=== PATIENT | male | born 1950 | race Caucasian/White ===

== ENCOUNTER 2018-06-23 20:07 | Emergency (ER) | payer OTHER, SELFPAY ==
[2018-06-23 20:31] LABS: Absolute Lymphocytes (CBC) 1.4 K/uL (0.7-4.9); Absolute Monocytes 0.6 K/uL (0.1-1.3); Absolute Neutrophil 6.4 K/uL (1.8-8.0); Basophils % 0.3 % (0-1.3); Eosinophils % 0.7 % (0-4.4); Lymphocytes % 16.3 % (15.3-44.8); MPV 11.2 fL (7.6-11.3); Monocytes % 7.6 % (3.3-12.3)
--- NOTE | 2018-06-23 20:31 | RAD REPORT ---
EXAM DESCRIPTION: Trung Single View06/23/2018 8:23 pm CLINICAL HISTORY: Chest pain COMPARISON: none FINDINGS: The lungs appear clear of acute infiltrate. The heart is normal size IMPRESSION: No acute abnormalities displayed
[2018-06-23] MEDS ORDERED: ONDANSETRON 4 MG/2 ML VIAL ONE (20:32)
[2018-06-23] MEDS ORDERED: FENTANYL CITR 100 MCG/2 ML ONE ×2 (20:32→21:30)
[2018-06-23] MEDS ORDERED: NA CHLORIDE 0.9% 1,000 ML ONE (20:36)
[2018-06-23 20:50] LABS: Albumin 4.4 g/dL (3.4-5.0); Bilirubin Direct 0.2 mg/dL (0-0.2); Bilirubin Total 0.8 mg/dL (0.2-1.0); Potassium 3.5 mmol/L (3.5-5.1); Protein, Total 7.9 g/dL (6.4-8.2)
[2018-06-23 21:58] LABS: Urine Blood 2+ (NEG); Urine Glucose NEGATIVE (NEG); Urine Protein NEGATIVE (NEG); Urine Specific Gravity 1.015 (1.005-1.030); Urine pH 8.5 (5.0-7.0)
[2018-06-23 21:59] LABS: Urine Bacteria <20 /HPF (NONE SEEN); Urine Culture Reflex Order NOT NEEDED; Urine RBC 20-50 /HPF (NONE SEEN)
[2018-06-23] MEDS ORDERED: ACETAMINOPHEN 500 MG TAB ONE (22:30)
[2018-06-23] MEDS ORDERED: KETOROLAC 30 MG/ML INJ ONE (22:30)
--- NOTE | 2018-06-23 23:18 | ER ---
Nurse's Notes [facility] Name: Maycol Corona Age: 67 yrs Sex: Male : 1950 Arrival Date: 06/23/2018 Time: 20:11 Bed 4 Private MD: Diagnosis: Acute blunt chest wall trauma;acute blunt abdominal wall trauma;Left 5th anterior rib fracture Presentation: 06/23 20:10 Presenting complaint: Patient states: that he was working on his porch and the ply wood fc gave way. When this happened pt fell with it and the plywood hit him the upper abd. Noted scrapes and bruising present. Pt also having increased pain to upper abd, chest, neck and back. Care prior to arrival: Medication(s) given: Freehold at 1940. Mechanism of Injury: Fall from Porch. Trauma event details: Injury occurred in the [facility], Injury occurred: at home. Injury occurred: June 23, 2018 Injury occurred at: 19:00. 20:10 Method Of Arrival: Wheelchair fc 20:10 Acuity: JOSE 2 fc 20:10 Transition of care: patient was not received from another setting of care. Onset of fc symptoms was June 23, 2018 at 19:00. Risk Assessment: Do you want to hurt yourself or someone else? Patient reports no desire to harm self or others. Initial Sepsis Screen: Does the patient meet any 2 criteria? RR > 20 per min. Yes Does the patient have a suspected source of infection? No. Patient's initial sepsis screen is negative. Triage Assessment: 23:36 General: Appears. tl2 Trauma Activation: Alert Physician: ED Physician; Name: Shane; Notified At: 20:11; Arrived At: 20:12 Physician: General Surgeon; Name: ; Notified At: 20:11; Arrived At: Physician: Radiology; Name: Giorgi Ashraf Dillion; Notified At: 20:11; Arrived At: 20:11 Physician: Respiratory; Name: ; Notified At: 20:11; Arrived At: Physician: Lab; Name: ; Notified At: 20:11; Arrived At: Historical: - Allergies: 20:24 No Known Allergies; fc - Home Meds: 20:24 Freehold 10-325 mg Oral tab 1 tab twice a day [Active]; Zoloft 100 mg Oral tab 1 tab once fc daily [Active]; Simvastatin Oral once daily [Active]; - PMHx: 20:24 neck pain; Back pain; Chronic pain; High Cholesterol; CVA; Pneumothorax; herniated disk;fc - PSHx: 20:24 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 - Immunization history: Last tetanus immunization: unknown. - Social history:: Smoking status: Patient/guardian denies using tobacco, Patient uses alcohol, on a daily basis. Patient/guardian denies using street drugs. - Ebola Screening: : Patient negative for fever greater than or equal to 101.5 degrees Fahrenheit, and additional compatible Ebola Virus Disease symptoms Patient denies exposure to infectious person Patient denies travel to an Ebola-affected area in the 21 days before illness onset. - Family history:: not pertinent. - Hospitalizations: : No recent hospitalization is reported. Screenin:10 Abuse screen: Denies threats or abuse. Tuberculosis screening: No symptoms or risk fc factors identified. 20:22 Nutritional screening: No deficits noted. Fall Risk None identified. fc Primary Survey: 20:10 NO uncontrolled hemorrhage observed. A: The patient is alert. Airway: patent, No la1 supplemental oxygen in use on arrival. Oral cavity: clear. Breathing/Chest: Respiratory pattern: regular, tachypnea, Respiratory effort: spontaneous, unlabored. Circulation: Skin color: pink. Disability Alert. Exposure/Environment: All clothing and personal items were removed. Forensic evidence collection is not deemed to be indicated at this time. Items placed in patient belonging bag. A warming method has been applied: A warm blanket has been provided to the patient. 21:09 Reassessment Airway Airway Patent Breathing/Chest Respiratory pattern Regular la1 Respiratory effort Spontaneous Unlabored Circulation Color [place] Temperature Warm Disability Alert. Secondary Survey: 20:10 Gastrointestinal: Abdomen is Other Bruising noted to WIN upper quadrants with la1 abrasions. Bowel sounds present in all quadrants. Palpation Other soft/non-tender. Assessment: 20:00 General: Appears distressed, uncomfortable, Behavior is cooperative, appropriate for tl2 age, anxious. Pain: Complains of pain in chest and thoracic area and epigastric area and mid-sternal area. Neuro: Level of Consciousness is awake, alert, obeys commands, Oriented to person, place, time, situation. Cardiovascular: Rhythm is sinus rhythm Chest pain quality is sharp, is located in chest wall. Respiratory: Airway is patent Respiratory effort is even, Respiratory pattern is symmetrical, tachypnea Breath sounds are clear bilaterally. GI: No signs and/or symptoms were reported involving the gastrointestinal system. : No signs and/or symptoms were reported regarding the genitourinary system. Derm: Skin is pink, warm \T\ dry. Musculoskeletal: Circulation, motion, and sensation intact. Injury Description: Abrasion sustained to diaphragm is scabbed, was sustained 30-60 minutes ago. 22:22 Reassessment: Patient appears in no apparent distress at this time. Patient and/or tl2 family updated on plan of care and expected duration. Pain level reassessed. Patient is alert, oriented x 3, equal unlabored respirations, skin warm/dry/pink. pt is calm and relaxed. RT at bedside to instruct pt on IS use. Awaiting discharge orders Patient states feeling better. Vital Signs: 20:10 BP 156 / 89; Pulse 69; Resp 26; Temp 98.2(O); Pulse Ox 100% on R/A; Weight 68.04 kg fc (R); Height 5 ft. 9 in. (175.26 cm) (R); Pain 10/10; 21:38 BP 158 / 76; Pulse 69; Resp 18; Pulse Ox 100% on 2 lpm NC; tl2 22:07 BP 123 / 72; Pulse 74; Resp 20; Pulse Ox 99% on R/A; tl2 23:04 BP 141 / 81; Pulse 66; Resp 18; Pulse Ox 99% on R/A; tl2 20:10 Body Mass Index 22.15 (68.04 kg, 175.26 cm) fc Rupesh Coma Score: 20:10 Eye Response: spontaneous(4). Verbal Response: oriented(5). Motor Response: obeys fc commands(6). Total: 15. Trauma Score (Adult): 20:10 Eye Response: spontaneous(1); Verbal Response: oriented(1); Motor Response: obeys fc commands(2); Systolic BP: > 89 mm Hg(4); Respiratory Rate: 10 to 29 per min(4); Eaton Score: 15; Trauma Score: 12 ED Course: 20:10 Patient has correct armband on for positive identification. Placed in gown. Bed in low fc position. Call light in reach. Side rails up X 1. 20:10 Arm band placed on Patient placed in an exam room, on a stretcher. fc 20:10 Patient maintains SpO2 saturation greater than 95% on room air. fc 20:10 Thermoregulation: warm blanket given to patient. tl2 20:11 Patient arrived in ED. am2 20:20 Triage completed. fc 20:20 Heraclio Lynn MD is Attending Physician. wa 20:22 No provider procedures requiring assistance completed. fc 20:23 Chest Single View XRAY In Process Unspecified. EDMS 20:33 Inserted saline lock: 20 gauge in right antecubital area, using aseptic technique. tl2 Blood collected. 20:33 Inserted saline lock: 20 gauge in left antecubital area, using aseptic technique. tl2 20:44 CT Traumagram (Head C Spine CAP W Con) In Process Unspecified. EDMS 21:02 XRAY Pelvis In Process Unspecified. EDMS 21:40 Anca Garcia, ROSY is Primary Nurse. tl2 23:16 Joseph Jose MD is Referral Physician. wa 23:42 IV discontinued, intact, bleeding controlled, No redness/swelling at site. Pressure tl2 dressing applied. Administered Medications: 20:32 Drug: fentaNYL (PF) 100 mcg Route: IVP; Site: right antecubital; tl2 20:40 Follow up: Response: No adverse reaction; Pain is decreased tl2 20:32 Drug: Zofran 4 mg Route: IVP; Site: right antecubital; tl2 21:00 Follow up: Response: No adverse reaction; Nausea is decreased tl2 20:32 Drug: NS 0.9% 1000 ml Route: IV; Rate: 1 bolus; Site: right antecubital; tl2 22:30 Follow up: IV Status: Completed infusion; IV Intake: 1000ml tl2 21:36 Drug: fentaNYL (PF) 100 mcg Route: IVP; Site: left antecubital; tl2 22:00 Follow up: Response: No adverse reaction; Pain is decreased tl2 22:22 Drug: TORadol 30 mg Route: IVP; Site: left antecubital; tl2 23:00 Follow up: Response: No adverse reaction; Pain is decreased tl2 22:22 Drug: Tylenol 1000 mg Route: PO; tl2 23:35 Follow up: Response: No adverse reaction tl2 23:33 Drug: Tetanus-Diphtheria Toxoid Adult 0.5 ml {Dried Yeast Supervisor: Jenn Rykert. Exp: tl2 04/08/2020. Lot #: [id number]. } Route: IM; Site: left deltoid; 23:36 Follow up: Response: No adverse reaction tl2 Intake: 22:30 IV: 1000ml; Total: 1000ml. tl2 23:43 IV: 1000ml; Total: 2000ml. tl2 Output: 23:43 Urine: 200ml (Voided); Total: 200ml. tl2 Outcome: 23:17 Discharge ordered by . wa 23:42 Discharged to home ambulatory, with family. tl2 23:42 Condition: stable 23:42 Discharge instructions given to patient, family, Instructed on discharge instructions, follow up and referral plans. medication usage, Demonstrated understanding of instructions, follow-up care, medications, Prescriptions given X 1. 23:43 Patient's length of stay was not longer than 2 hours. tl2 23:44 Patient left the ED. tl2 Signatures: Dispatcher [employer] EDMS Day Santamaria RN RN fc Attema, Lee, RN RN la1 Knox, Taylor, RN RN tl2 Reena Alfaro am2 Heraclio Lynn MD MD wa Corrections: (The following items were deleted from the chart) 23:42 20:00 IV discontinued, intact, bleeding controlled, No redness/swelling at site. tl2 Pressure dressing applied, tl2
--- NOTE | 2018-06-23 23:18 | EDPHYS ---
Physician Documentation [facility] Name: Maycol Corona Age: 67 yrs Sex: Male : 1950 Arrival Date: 06/23/2018 Time: 20:11 Bed 4 Private MD: ED Physician Heraclio Lynn HPI: 06/23 22:55 This 67 yrs old Male presents to ER via Wheelchair with complaints of Fall wa Injury. 22:55 Details of fall: The patient fell from an upright position, while working. . Onset: The wa symptoms/episode began/occurred just prior to arrival. Associated injuries: The patient sustained injury to the chest, specifically the diaphragm, xyphoid area and mid-sternal area, injury to the abdomen. Severity of symptoms: At their worst the symptoms were severe, in the emergency department the symptoms are unchanged. The patient has not experienced similar symptoms in the past. The patient has not recently seen a physician. states working with [employer] on his porch and fell over with the plywood hit him right in the lower chest and upper abd. . 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 - Immunization history: Last tetanus immunization: unknown. - Social history:: Smoking status: Patient/guardian denies using tobacco, Patient uses alcohol, on a daily basis. Patient/guardian denies using street drugs. - Ebola Screening: : Patient negative for fever greater than or equal to 101.5 degrees Fahrenheit, and additional compatible Ebola Virus Disease symptoms Patient denies exposure to infectious person Patient denies travel to an Ebola-affected area in the 21 days before illness onset. - Family history:: not pertinent. - Hospitalizations: : No recent hospitalization is reported. ROS: 23:27 Constitutional: Negative for fever, chills, and weight loss, Eyes: Negative for injury, wa pain, redness, and discharge, ENT: Negative for injury, pain, and discharge, : Negative for injury, bleeding, discharge, and swelling, MS/Extremity: Negative for injury and deformity, Neuro: Negative for headache, weakness, numbness, tingling, and seizure. 23:27 Neck: Positive for pain with movement. 23:27 Cardiovascular: Positive for chest pain. 23:27 Respiratory: Positive for painful inspiration, Negative for hemoptysis. 23:27 Abdomen/GI: Positive for abdominal pain, of the epigastric area, right upper quadrant and left upper quadrant. 23:27 Back: Positive for pain with movement. 23:27 MS/extremity: Negative for injury or acute deformity. 23:27 Skin: Positive for abrasion(s), deep bruise across the upper abdomen, Negative for hematoma. Exam: 23:29 Head/Face: Normocephalic, atraumatic. Eyes: Pupils equal round and reactive to light, wa extra-ocular motions intact. Lids and lashes normal. Conjunctiva and sclera are non-icteric and not injected. Cornea within normal limits. Periorbital areas with no swelling, redness, or edema. ENT: Nares patent. No nasal discharge, no septal abnormalities noted. Tympanic membranes are normal and external auditory canals are clear. Oropharynx with no redness, swelling, or masses, exudates, or evidence of obstruction, uvula midline. Mucous membranes moist. MS/ Extremity: Pulses equal, no cyanosis. Neurovascular intact. Full, normal range of motion. Neuro: Awake and alert, GCS 15, oriented to person, place, time, and situation. Cranial nerves II-XII grossly intact. Motor strength 5/5 in all extremities. Sensory grossly intact. Cerebellar exam normal. Normal gait. Psych: Awake, alert, with orientation to person, place and time. Behavior, mood, and affect are within normal limits. 23:29 Constitutional: The patient appears alert, in obvious distress, due to pain 23:29 Neck: External neck: is normal, C-spine: no crepitus or step-offs. diffuse tenderness, Trachea: is midline with no obvious abnormalities. 23:29 Chest/axilla: Inspection: normal, Palpation: crepitus, is not appreciated, tenderness, that is moderate, of the diffuse lower aspect of bilateral chest. 23:29 Abdomen/GI: Inspection: bruising, across upper abdomen over xiphoid, Bowel sounds: normal, Palpation: soft, in all quadrants, moderate abdominal tenderness, in the left upper quadrant and right upper quadrant and epigastric area and mid-sternal area and xyphoid area. 23:29 Back: pain, that is moderate, of the thoracic area and lumbar area. Vital Signs: 20:10 BP 156 / 89; Pulse 69; Resp 26; Temp 98.2(O); Pulse Ox 100% on R/A; Weight 68.04 kg fc (R); Height 5 ft. 9 in. (175.26 cm) (R); Pain 10/10; 21:38 BP 158 / 76; Pulse 69; Resp 18; Pulse Ox 100% on 2 lpm NC; tl2 22:07 BP 123 / 72; Pulse 74; Resp 20; Pulse Ox 99% on R/A; tl2 23:04 BP 141 / 81; Pulse 66; Resp 18; Pulse Ox 99% on R/A; tl2 20:10 Body Mass Index 22.15 (68.04 kg, 175.26 cm) fc Rupesh Coma Score: 20:10 Eye Response: spontaneous(4). Verbal Response: oriented(5). Motor Response: obeys fc commands(6). Total: 15. Trauma Score (Adult): 20:10 Eye Response: spontaneous(1); Verbal Response: oriented(1); Motor Response: obeys fc commands(2); Systolic BP: > 89 mm Hg(4); Respiratory Rate: 10 to 29 per min(4); Hensley Score: 15; Trauma Score: 12 Procedures: 23:41 Performed FAST (as part of trauma primary survey). 4 quad FAST at bedside by . all wa windows noted and negative. no abd intrab or thoracic fluid. . MDM: 20:20 Patient medically screened. wa 23:35 Differential diagnosis: abrasion, closed head injury, contusion, fracture, multiple wa trauma, sprain, strain. Differential diagnosis: trauma. r/o acute traumatic intrathoracic/intraabd/pelvic injury. . Data reviewed: vital signs, nurses notes. Test interpretation: by ED physician or midlevel provider: labs noted for hyperglycemia of 153. Blood type O pos. UA noted for 20-50 RBCs. low plt. low GFR. . 23:38 Test interpretation: by ED physician or midlevel provider: CXR negative. CT va head/c-spine/chest/abd/pelvis: noted R anterior 5th rib fracture. no pneumothorax. Response to treatment: the patient's symptoms have markedly improved after treatment. ED course: pain controlled. vitals remained within nml limits. noted rib fx. taught incentive spirometry. d/c'd with pain meds and close f/u. advised immediate return for worsening pain and or new concerns. 23:43 Test interpretation: by ED physician or midlevel provider: pelvic x-ray negative for va acute process. CXR negative. recon T/L spine on CT: no acute fx. 06/23 20:22 Order name: Basic Metabolic Panel va 06/23 20:22 Order name: CBC with Diff; Complete Time: 21:50 va 06/23 20:22 Order name: Creatinine for Radiology; Complete Time: 21:50 va 06/23 20:22 Order name: Type And Screen; Complete Time: 21:51 va 06/23 20:22 Order name: LFT's; Complete Time: 21:51 va 06/23 20:22 Order name: Urine Microscopic Only; Complete Time: 23:26 va 06/23 20:17 Order name: Chest Single View XRAY; Complete Time: 21:50 [facility] 06/23 20:22 Order name: CT Traumagram (Head C Spine CAP W Con) va 06/23 20:22 Order name: XRAY Pelvis va 06/23 20:23 Order name: Basic Metabolic Panel; Complete Time: 21:51 [facility] 06/23 21:36 Order name: ABO/RH no charge; Complete Time: 21:50 [facility] 06/23 21:43 Order name: Urine Dipstick--Ancillary (enter results); Complete Time: 23:26 [facility] 06/23 22:09 Order name: INCENTIVE SPIROMETRY va 06/23 20:22 Order name: Labs collected and sent; Complete Time: 20:33 va 06/23 20:22 Order name: Urine Dipstick-Ancillary (obtain specimen); Complete Time: 21:39 va 06/23 20:22 Order name: Cardiac monitoring; Complete Time: 20:32 va Administered Medications: 20:32 Drug: fentaNYL (PF) 100 mcg Route: IVP; Site: right antecubital; tl2 20:40 Follow up: Response: No adverse reaction; Pain is decreased tl2 20:32 Drug: Zofran 4 mg Route: IVP; Site: right antecubital; tl2 21:00 Follow up: Response: No adverse reaction; Nausea is decreased tl2 20:32 Drug: NS 0.9% 1000 ml Route: IV; Rate: 1 bolus; Site: right antecubital; tl2 22:30 Follow up: IV Status: Completed infusion; IV Intake: 1000ml tl2 21:36 Drug: fentaNYL (PF) 100 mcg Route: IVP; Site: left antecubital; tl2 22:00 Follow up: Response: No adverse reaction; Pain is decreased tl2 22:22 Drug: TORadol 30 mg Route: IVP; Site: left antecubital; tl2 23:00 Follow up: Response: No adverse reaction; Pain is decreased tl2 22:22 Drug: Tylenol 1000 mg Route: PO; tl2 23:35 Follow up: Response: No adverse reaction tl2 23:33 Drug: Tetanus-Diphtheria Toxoid Adult 0.5 ml {Pile Driver Operator Barge Mounted: Besstech. Exp: tl2 04/08/2020. Lot #: [id number]. } Route: IM; Site: left deltoid; 23:36 Follow up: Response: No adverse reaction tl2 Disposition: 06/23/18 23:17 Discharged to Home. Impression: Acute blunt chest wall trauma, acute blunt abdominal wall trauma, Left 5th anterior rib fracture. - Condition is Stable. - Discharge Instructions: Blunt Abdominal Trauma, Rib Fracture, [id number], Blunt Chest Trauma. - Medication Reconciliation Form, Thank You Letter, Antibiotic Education, Prescription Opioid Use form. - Follow up: Joseph Jose MD; When: 2 - 3 days; Reason: Recheck today's complaints. - Problem is new. - Symptoms have improved. - Notes: take pain medication as prescribed. use incentive spirometer 2-3 times per hour to help with lung expansion Critical care time excluding procedures: 23:42 Critical care time: Bedside Care: 20 minutes, Family Intervention: 10 minutes. Total wa time: 30 minutes Signatures: Dispatcher [employer] EDDay Delacruz RN RN Anca Garcia RN RN tl2 Heraclio Lynn MD MD wa Corrections: (The following items were deleted from the chart) 23:44 23:17 06/23/2018 23:17 Discharged to Home. Impression: Acute blunt chest wall trauma; tl2 acute blunt abdominal wall trauma; Left 5th anterior rib fracture. Condition is Stable. Forms are Medication Reconciliation Form, Thank You Letter, Antibiotic Education, Prescription Opioid Use. Follow up: Joseph Jose; When: 2 - 3 days; Reason: Recheck today's complaints. Problem is new. Symptoms have improved. wa
[2018-06-23] MEDS ORDERED: TETANUS & DIPHTHERIA TOX,ADULT 0.5 ML VIAL ONE (23:40)
--- NOTE | 2018-06-24 07:47 | RAD REPORT ---
EXAM DESCRIPTION: RAD - Pelvis - 06/23/2018 9:02 pm CLINICAL HISTORY: Pelvic pain status post injury FINDINGS: No fracture or dislocation is seen.
== END 2018-06-23 23:44 | disposition home or self-care (01) ==
LOC: ER 20:07
DX: S22.32XA Fracture of one rib, left side, initial encounter for closed fracture (principal); S29.9XXA Unspecified injury of thorax, initial encounter; S39.91XA Unspecified injury of abdomen, initial encounter; W01.198A Fall on same level from slipping, tripping and stumbling with subsequent striking against other object, initial encounter; Y93.89 Activity, other specified; Y92.098 Other place in other non-institutional residence as the place of occurrence of the external cause; Z86.73 Personal history of transient ischemic attack (TIA), and cerebral infarction without residual deficits; E78.00 Pure hypercholesterolemia, unspecified
CPT/HCPCS: 85025; 80048; 36415; 86900; 86850; 86901; 80076; 70450; 72125; 71260; 74177; 71045; 72170; 90714; Q9967; J3010 ×2; J7030; J2405; 81003; 81015

== ENCOUNTER 2019-01-09 14:35 | Emergency (ER) | payer OTHER ==
[2019-01-09 15:30] LABS: Absolute Lymphocytes (CBC) 1.3 K/uL (0.7-4.9); Lymphocytes % 25.9 % (15.3-44.8); MPV 11.2 fL (7.6-11.3); RBC Red Blood Cell Count 4.66 M/uL (4.33-5.43)
[2019-01-09] MEDS ORDERED: ASPIRIN 81 MG CHEWABLE TABLET ONE (15:44)
[2019-01-09] MEDS ORDERED: NITROGLYCERIN 0.4 MG/TAB SL ONE (15:45)
[2019-01-09 15:53] LABS: Protime INR 0.94
[2019-01-09 16:04] LABS: ALT/SGPT 23 U/L (12-78); AST/SGOT 14 U/L (15-37); Albumin 4.1 g/dL (3.4-5.0); Alkaline Phosphatase 74 U/L (45-117); BUN Blood Urea Nitrogen 19 mg/dL (7-18); Bicarbonate 25 mmol/L (21-32); Bilirubin Direct 0.1 mg/dL (0-0.2); Bilirubin Total 0.4 mg/dL (0.2-1.0); Glucose Level 99 mg/dL (74-106); Magnesium 2.2 mg/dL (1.8-2.4); NT PRO-BNP 243 pg/mL (<125); Protein, Total 7.4 g/dL (6.4-8.2); Sodium Level 141 mmol/L (136-145); Troponin (Emerg Dept Use Only) < 0.02 ng/mL (0.0-0.045)
--- NOTE | 2019-01-09 17:16 | RAD REPORT ---
EXAM DESCRIPTION: RAD - Chest Single View - 01/09/2019 4:20 pm CLINICAL HISTORY: CHEST PAIN Chest pain. COMPARISON: No comparisonsNo comparisonsChest Single View dated 06/23/2018 FINDINGS: Portable technique limits examination quality. The lungs are grossly clear. The heart is normal in size. No displaced fractures. IMPRESSION: No acute intrathoracic process suspected.
--- NOTE | 2019-01-09 18:33 | EDPHYS ---
Physician Documentation [facility] Name: Maycol Corona Age: 68 yrs Sex: Male : 1950 Arrival Date: 01/09/2019 Time: 14:36 Bed 17 Private MD: ED Physician Aldo Capone HPI: 01/09 15:22 This 68 yrs old Male presents to ER via Ambulatory with complaints of Chest snw Pain. 15:22 Onset: The symptoms/episode began/occurred 2 year(s) ago, and became persistent. snw Associated signs and symptoms: Pertinent positives: palpitations, dizziness. The patient has experienced similar episodes in the past, chronically. The patient has not recently seen a physician. pt has never seen a bioinformatics technician. 15:29 The patient or guardian reports chest pain that is located primarily in the substernal snw area. Onset: 2 year(s) ago. The pain does not radiate. Associated signs and symptoms: Pertinent positives: dizziness, palpitations. The chest pain is described as squeezing. Duration: The patient or guardian reports multiple episodes, that wax and wane. Modifying factors: The symptoms are alleviated by nothing. Severity of pain: At its worst the pain was moderate. Historical: - Allergies: 14:39 No Known Allergies; aj1 - Home Meds: 14:39 [place] 10-325 mg Oral tab 1 tab twice a day [Active]; fiorcet [Active]; aj1 15:29 simvastatin 20 mg Oral tab [Active]; sertraline 100 mg oral tab 1 tab once daily em [Active]; famotidine 20 mg Oral tab [Active]; tizanidine 4 mg oral tab [Active]; meloxicam 7.5 mg oral tab [Active]; Butalbital Compound 50-300-40 mg tab Oral tab [Active]; acetaminophen-codeine 300-30 mg Oral tab [Active]; - PMHx: 14:39 Back pain; Chronic pain; CVA; herniated disk; High Cholesterol; neck pain; Pneumothorax;aj1 - Immunization history:: Flu vaccine is not up to date. - Social history:: Smoking status: Patient/guardian denies using tobacco. - Ebola Screening: : Patient denies travel to an Ebola-affected area in the 21 days before illness onset. ROS: 15:21 Constitutional: Negative for fever, chills, and weight loss, Eyes: Negative for injury, snw pain, redness, and discharge, ENT: Negative for injury, pain, and discharge, Neck: Negative for injury, pain, and swelling, Respiratory: Negative for shortness of breath, cough, wheezing, and pleuritic chest pain, Abdomen/GI: Negative for abdominal pain, nausea, vomiting, diarrhea, and constipation, Back: Negative for injury and pain, : Negative for injury, bleeding, discharge, and swelling, MS/Extremity: Negative for injury and deformity, Skin: Negative for injury, rash, and discoloration, Neuro: Negative for headache, weakness, numbness, tingling, and seizure, Psych: Negative for depression, anxiety, suicide ideation, homicidal ideation, and hallucinations. 15:21 Cardiovascular: Positive for chest pain, palpitations. Exam: 15:21 Constitutional: This is a well developed, well nourished patient who is awake, alert, snw and in no acute distress. Head/Face: Normocephalic, atraumatic. Eyes: Pupils equal round and reactive to light, extra-ocular motions intact. Lids and lashes normal. Conjunctiva and sclera are non-icteric and not injected. Cornea within normal limits. Periorbital areas with no swelling, redness, or edema. ENT: Nares patent. No nasal discharge, no septal abnormalities noted. Tympanic membranes are normal and external auditory canals are clear. Oropharynx with no redness, swelling, or masses, exudates, or evidence of obstruction, uvula midline. Mucous membranes moist. Neck: Trachea midline, no thyromegaly or masses palpated, and no cervical lymphadenopathy. Supple, full range of motion without nuchal rigidity, or vertebral point tenderness. No Meningismus. Chest/axilla: Normal chest wall appearance and motion. Nontender with no deformity. No lesions are appreciated. Cardiovascular: Regular rate and rhythm with a normal S1 and S2. No gallops, murmurs, or rubs. Normal PMI, no JVD. No pulse deficits. Respiratory: Lungs have equal breath sounds bilaterally, clear to auscultation and percussion. No rales, rhonchi or wheezes noted. No increased work of breathing, no retractions or nasal flaring. Abdomen/GI: Soft, non-tender, with normal bowel sounds. No distension or tympany. No guarding or rebound. No evidence of tenderness throughout. Back: No spinal tenderness. No costovertebral tenderness. Full range of motion. Skin: Warm, dry with normal turgor. Normal color with no rashes, no lesions, and no evidence of cellulitis. MS/ Extremity: Pulses equal, no cyanosis. Neurovascular intact. Full, normal range of motion. Neuro: Awake and alert, GCS 15, oriented to person, place, time, and situation. Cranial nerves II-XII grossly intact. Motor strength 5/5 in all extremities. Sensory grossly intact. Cerebellar exam normal. Normal gait. Psych: Awake, alert, with orientation to person, place and time. Behavior, mood, and affect are within normal limits. Vital Signs: 14:39 BP 179 / 87; Pulse 74; Resp 18; Temp 97.6; Pulse Ox 100% on R/A; Weight 68.04 kg (R); aj1 Height 5 ft. 9 in. (175.26 cm) (R); Pain 6/10; 15:33 BP 166 / 91; Pulse 60; Resp 16; Pulse Ox 100% on R/A; Pain 0/10; em 16:00 BP 138 / 82; Pulse 68; Resp 18; Pulse Ox 99% on R/A; Pain 0/10; em 17:00 BP 157 / 80; Pulse 66; Resp 18; Pulse Ox 99% on R/A; em 18:02 BP 151 / 82; Pulse 57; Resp 18; Pulse Ox 99% on R/A; Pain 0/10; em 14:39 Body Mass Index 22.15 (68.04 kg, 175.26 cm) aj1 MDM: 14:54 Patient medically screened. snw 18:38 ECG:. The patient was given aspirin in the Emergency Department. Data reviewed: vital snw signs, nurses notes, lab test result(s), EKG, radiologic studies. Data interpreted: Pulse oximetry: on room air is 99 %. Interpretation: normal. Counseling: I had a detailed discussion with the patient and/or guardian regarding: the historical points, exam findings, and any diagnostic results supporting the discharge/admit diagnosis, the presence of at least one elevated blood pressure reading (>120/80) during this emergency department visit, lab results, radiology results, the need for outpatient follow up, to return to the emergency department if symptoms worsen or persist or if there are any questions or concerns that arise at home. Special discussion: Based on the patient's history, exam, and Dx evaluation, there is no indication for emergent intervention or inpatient Tx. It is understood by the patient/guardian that if the Sx's persist or worsen they need to return immediately for re-evaluation. Based on the history and exam findings, there is no indication for further emergent testing or inpatient evaluation. I discussed with the patient/guardian the need to see the bioinformatics technician for further evaluation of the symptoms. 18:49 Counseling: I had a detailed discussion with the patient and/or guardian regarding: Pt snw has had daily symptoms x 2 years. Has never seen cardiology. Encouraged to see cardiology for echo, cardiac cath, management. Pt will make appt with cardio. Encouraged to return to ED immediately for worsening signs, symptoms, concerns.. 01/09 15:13 Order name: Basic Metabolic Panel; Complete Time: 16:14 em 01/09 15:13 Order name: CBC with Diff; Complete Time: 16:14 em 01/09 15:13 Order name: LFT's; Complete Time: 16:14 em 01/09 15:13 Order name: Magnesium; Complete Time: 16:14 em 01/09 15:13 Order name: NT PRO-BNP; Complete Time: 16:14 em 01/09 15:13 Order name: PT-INR; Complete Time: 16:14 em 01/09 15:13 Order name: Troponin (emerg Dept Use Only); Complete Time: 16:14 em 01/09 15:13 Order name: EKG; Complete Time: 15:14 em 01/09 15:13 Order name: Cardiac monitoring; Complete Time: 15:14 em 01/09 16:09 Order name: Chest Single View XRAY; Complete Time: 17:18 em 01/09 16:16 Order name: Troponin (emerg Dept Use Only): 1800; Complete Time: 18:30 snw 01/09 15:13 Order name: EKG - Nurse/Tech; Complete Time: 15:14 em 01/09 15:13 Order name: IV Saline Lock; Complete Time: 15:29 em 01/09 15:13 Order name: Labs collected and sent; Complete Time: 15:14 em 01/09 15:13 Order name: O2 Per Protocol; Complete Time: 15:14 em 01/09 15:13 Order name: O2 Sat Monitoring; Complete Time: 15:14 em 01/09 16:16 Order name: Repeat Cardiac Enzymes at; Complete Time: 18:00 snw Administered Medications: 15:50 Drug: Aspirin Chewable Tablet 324 mg Route: PO; em 16:53 Follow up: Response: No adverse reaction em 15:50 Drug: Nitroglycerin 0.4 mg Route: Sublingual; em 16:53 Follow up: Response: No adverse reaction; Marked relief of symptoms em Disposition: 19:15 Co-signature as Attending Physician, Aldo Capone MD Did not see or evaluate the ps1 patient. Signing the chart for administrative purposes. Not an endorsement of care provided. . Disposition: 01/09/19 18:32 Discharged to Home. Impression: Angina pectoris, unspecified. - Condition is Stable. - Discharge Instructions: Angina Pectoris. - Prescriptions for Isosorbide Mononitrate 30 mg Oral Tablet Sustained Release 24 hr - take 1 tablet by ORAL route once daily in the morning; 30 tablet. - Work release form, Medication Reconciliation Form, Thank You Letter, Antibiotic Education, Prescription Opioid Use form. - Follow up: Emergency Department; When: As needed; Reason: Trouble breathing, Worsening of condition. Follow up: Danilo Parker MD; When: 2 - 3 days; Reason: Recheck today's complaints, Continuance of care. Signatures: Dispatcher [employer] [facility] Abby Beverly RN RN aj1 Nalini Jaime, BALING MACHINE OPERATOR-C BALING MACHINE OPERATOR-Csnw Bran Morales, INVESTIGATIVE AGENT INVESTIGATIVE AGENT em Aldo Capone MD MD ps1 Corrections: (The following items were deleted from the chart) 16:01 15:14 Chest Single View+RAD.RAD.BRZ ordered. [facility] 19:01 18:32 01/09/2019 18:32 Discharged to Home. Impression: Angina pectoris, unspecified. em Condition is Stable. Forms are Medication Reconciliation Form, Thank You Letter, Antibiotic Education, Prescription Opioid Use. Follow up: Emergency Department; When: As needed; Reason: Trouble breathing, Worsening of condition. Follow up: Danilo Parker; When: 2 - 3 days; Reason: Recheck today's complaints, Continuance of care. snw
--- NOTE | 2019-01-09 18:33 | ER ---
Nurse's Notes [facility] Name: Maycol Corona Age: 68 yrs Sex: Male : 1950 Arrival Date: 01/09/2019 Time: 14:36 Bed 17 Private MD: Diagnosis: Angina pectoris, unspecified Presentation: 01/09 14:37 Presenting complaint: Patient states: "Im having cramping from my neck to my belly aj1 button, I'm short winded, I've been having headache" Patient reports that he has been having these symptoms for the past 2 years. Transition of care: patient was not received from another setting of care. Onset of symptoms was 2016. Risk Assessment: Do you want to hurt yourself or someone else? Patient reports no desire to harm self or others. Initial Sepsis Screen: Does the patient meet any 2 criteria? No. Patient's initial sepsis screen is negative. Does the patient have a suspected source of infection? No. Patient's initial sepsis screen is negative. Care prior to arrival: None. 14:37 Method Of Arrival: Ambulatory aj1 14:37 Acuity: JOSE 3 aj1 Triage Assessment: 14:39 General: Appears in no apparent distress. comfortable, Behavior is calm, cooperative, aj1 appropriate for age. Pain: Pain currently is 6 out of 10 on a pain scale. Neuro: Level of Consciousness is awake, alert, obeys commands, Oriented to person, place, time, situation. Cardiovascular: Patient's skin is warm and dry. Respiratory: Airway is patent Respiratory effort is even, unlabored, Respiratory pattern is regular, symmetrical. Historical: - Allergies: 14:39 No Known Allergies; aj1 - Home Meds: 14:39 [place] 10-325 mg Oral tab 1 tab twice a day [Active]; fiorcet [Active]; aj1 15:29 simvastatin 20 mg Oral tab [Active]; sertraline 100 mg oral tab 1 tab once daily em [Active]; famotidine 20 mg Oral tab [Active]; tizanidine 4 mg oral tab [Active]; meloxicam 7.5 mg oral tab [Active]; Butalbital Compound 50-300-40 mg tab Oral tab [Active]; acetaminophen-codeine 300-30 mg Oral tab [Active]; - PMHx: 14:39 Back pain; Chronic pain; CVA; herniated disk; High Cholesterol; neck pain; Pneumothorax;aj1 - Immunization history:: Flu vaccine is not up to date. - Social history:: Smoking status: Patient/guardian denies using tobacco. - Ebola Screening: : Patient denies travel to an Ebola-affected area in the 21 days before illness onset. Screenin:54 Abuse screen: Denies threats or abuse. Nutritional screening: No deficits noted. em Tuberculosis screening: No symptoms or risk factors identified. Fall Risk None identified. Assessment: 15:00 General: Appears in no apparent distress. comfortable, Behavior is calm, cooperative, em Reports feeling ill for 2-3 days. Pain: Complains of pain in mid-sternal area Pain does not radiate. Quality of pain is described as crampy, Pain began 2-3 days ago. Is intermittent. Neuro: Level of Consciousness is awake, alert, obeys commands, Oriented to person, place, time, situation, Appropriate for age. Cardiovascular: Capillary refill < 3 seconds Patient's skin is warm and dry. Respiratory: Reports cough that is non-productive, Airway is patent Respiratory effort is even, unlabored, Respiratory pattern is regular, symmetrical, Breath sounds are clear bilaterally. GI: Abdomen is flat, Patient currently denies nausea, vomiting. Derm: Skin is intact, is healthy with good turgor, Skin is pink, warm \\T\\ dry. Musculoskeletal: Capillary refill < 3 seconds, Range of motion: intact in all extremities. 15:15 Reassessment: I agree with previous assessment. 16:00 Reassessment: Patient appears in no apparent distress at this time. Patient and/or em family updated on plan of care and expected duration. Pain level reassessed. Patient is alert, oriented x 3, equal unlabored respirations, skin warm/dry/pink. 17:01 Reassessment: Patient appears in no apparent distress at this time. Patient and/or em family updated on plan of care and expected duration. Pain level reassessed. Patient is alert, oriented x 3, equal unlabored respirations, skin warm/dry/pink. Patient states feeling better. Patient states symptoms have improved. 18:01 Reassessment: Patient appears in no apparent distress at this time. Patient and/or em family updated on plan of care and expected duration. Pain level reassessed. Patient is alert, oriented x 3, equal unlabored respirations, skin warm/dry/pink. Vital Signs: 14:39 BP 179 / 87; Pulse 74; Resp 18; Temp 97.6; Pulse Ox 100% on R/A; Weight 68.04 kg (R); aj1 Height 5 ft. 9 in. (175.26 cm) (R); Pain 6/10; 15:33 BP 166 / 91; Pulse 60; Resp 16; Pulse Ox 100% on R/A; Pain 0/10; em 16:00 BP 138 / 82; Pulse 68; Resp 18; Pulse Ox 99% on R/A; Pain 0/10; em 17:00 BP 157 / 80; Pulse 66; Resp 18; Pulse Ox 99% on R/A; em 18:02 BP 151 / 82; Pulse 57; Resp 18; Pulse Ox 99% on R/A; Pain 0/10; em 14:39 Body Mass Index 22.15 (68.04 kg, 175.26 cm) aj1 ED Course: 14:36 Patient arrived in ED. as 14:38 Triage completed. aj1 14:39 Arm band placed on Patient placed in an exam room. aj1 14:46 Bran Morales LVN is Primary Nurse. em 14:49 Nalini Jaime FNP-C is PHCP. snw 14:49 Aldo Capone MD is Attending Physician. snw 15:00 Patient has correct armband on for positive identification. Placed in gown. Bed in low em position. Call light in reach. Side rails up X2. Adult w/ patient. school bus inspector on. Pulse ox on. NIBP on. 15:00 Patient maintains SpO2 saturation greater than 95% on room air. em 15:30 Initial lab(s) drawn, by me, sent to lab. Inserted saline lock: 20 gauge in right em antecubital area, using aseptic technique. Blood collected. 16:21 Chest Single View XRAY In Process Unspecified. EDMS 18:32 Danilo Parker MD is Referral Physician. snw 18:59 No provider procedures requiring assistance completed. IV discontinued, intact, em bleeding controlled, No redness/swelling at site. Pressure dressing applied. Administered Medications: 15:50 Drug: Aspirin Chewable Tablet 324 mg Route: PO; em 16:53 Follow up: Response: No adverse reaction em 15:50 Drug: Nitroglycerin 0.4 mg Route: Sublingual; em 16:53 Follow up: Response: No adverse reaction; Marked relief of symptoms em Outcome: 18:32 Discharge ordered by MD. kumar 19:00 Discharged to home ambulatory, with family. em 19:00 Condition: good 19:00 Discharge instructions given to patient, family, Instructed on discharge instructions, follow up and referral plans. medication usage, Demonstrated understanding of instructions, follow-up care, medications, Prescriptions given X 1. 19:01 Patient left the ED. em Signatures: Dispatcher [employer] EDAbby Sheehan RN RN aj1 Nalini Jaime, ICE PLANT OPERATOR-C ICE PLANT OPERATOR-Csnw Bran Morales, JUSTOWRITER OPERATOR JUSTOWRITER OPERATOR em Halle Narayan Heather, RN RN hb
[2019-01-09 20:05] VITALS: TEMP 97.6
[2019-01-09 20:10] VITALS: O2SAT 99
[2019-01-09 20:12] VITALS: BP 151/82
--- NOTE | 2019-01-09 23:05 | EKG ---
Test Date: 2019-01-09 Test Time: 15:03:48 Electrical Installation Supervisor: KARLIE MEASUREMENT RESULTS: Intervals: Rate: 69 MO: 154 QRSD: 92 QT: 414 QTc: 443 [place]: P: 70 MO: 154 QRS: 33 T: -5 INTERPRETIVE STATEMENTS: Normal sinus rhythm Minimal voltage criteria for LVH, may be normal variant Nonspecific ST abnormality Abnormal ECG No previous ECG available for comparison Electronically Signed On 01-09-19 23:04:43 REHABILITATION COORDINATOR by Lisandro Matamoros
--- NOTE | 2019-01-10 10:05 | EKG ---
Test Date: 2019-01-09 Test Time: 17:58:48 Passenger Service Agent: KYARA MEASUREMENT RESULTS: Intervals: Rate: 55 MN: 162 QRSD: 98 QT: 458 QTc: 438 [place]: P: 58 MN: 162 QRS: 27 T: -13 INTERPRETIVE STATEMENTS: Sinus bradycardia Left ventricular hypertrophy with repolarization abnormality Abnormal ECG Compared to ECG 01/09/2019 15:03:48 Early repolarization now present Sinus rhythm no longer present ST (T wave) deviation no longer present Electronically Signed On 01-10-19 10:03:47 [employer]EMAKER PIPE by Lisandro Matamoros
== END 2019-01-09 19:01 | disposition home or self-care (01) ==
LOC: ER 14:35
DX: I20.9 Angina pectoris, unspecified (principal); E78.00 Pure hypercholesterolemia, unspecified; Z86.73 Personal history of transient ischemic attack (TIA), and cerebral infarction without residual deficits
CPT/HCPCS: 36415; 71045; 80048; 80076; 83735; 83880; 84484; 85025; 85610; 93005; 99285

== ENCOUNTER 2019-11-10 17:36 | Emergency (ER) | payer OTHER ==
[2019-11-10] MEDS ORDERED: HYDRALAZINE HCL 20 MG/ML VIAL ONE (18:39)
[2019-11-10] MEDS ORDERED: ONDANSETRON 4 MG/2 ML VIAL ONE (18:39)
[2019-11-10 18:40] LABS: Absolute Lymphocytes (CBC) 1.1 K/uL (0.7-4.9); Basophils % 0.7 % (0-1.3); Hematocrit 37.4 % (39.6-49.0); Lymphocytes % 21.1 % (15.3-44.8); MPV 11.3 fL (7.6-11.3); RBC Red Blood Cell Count 4.65 M/uL (4.33-5.43)
[2019-11-10 18:46] LABS: Potassium 3.6 mmol/L (3.5-5.1)
--- NOTE | 2019-11-10 19:50 | EDPHYS ---
Physician Documentation [facility] Name: Maycol Corona Age: 69 yrs Sex: Male : 1950 Arrival Date: 11/10/2019 Time: 17:37 Bed 7 Private MD: ED Physician Floyd Lua HPI: 11/09 18:56 This 69 yrs old Male presents to ER via Ambulatory with complaints of High jr8 Blood Pressure, Headache. 18:56 The patient has elevated blood pressure and discovered this at home. Onset: The jr8 symptoms/episode began/occurred gradually, 2 day(s) ago. Associated signs and symptoms: Pertinent positives: nausea. Severity of symptoms: At its worst the blood pressure was moderate. The patient has not experienced similar symptoms in the past. The patient has not recently seen a physician. Patient stated that he has had headache with nausea for two days. Checked BP today and was 200 systolic. Came to ED at that time. History of HTN and is on medications for it . Historical: - Allergies: 17:57 No Known Allergies; ll1 - PMHx: 17:57 Chronic pain; High Cholesterol; herniated disk; CVA; Back pain; neck pain; Pneumothorax;ll1 - PSHx: 17:57 triple bypass; ll1 - Immunization history:: Flu vaccine is not up to date. - Social history:: Smoking status: Patient/guardian denies using tobacco, the patient reports quitting approximately 25 years ago. ROS: 18:56 Eyes: Negative for injury, pain, redness, and discharge, ENT: Negative for injury, jr8 pain, and discharge, Neck: Negative for injury, pain, and swelling, Cardiovascular: Negative for chest pain, palpitations, and edema, Respiratory: Negative for shortness of breath, cough, wheezing, and pleuritic chest pain, Back: Negative for injury and pain, MS/Extremity: Negative for injury and deformity, Skin: Negative for injury, rash, and discoloration. 18:56 Abdomen/GI: Positive for nausea, Negative for abdominal pain, vomiting, diarrhea, constipation, abdominal cramps, abdominal distension. 18:56 Neuro: Positive for headache. Exam: 18:56 Eyes: Pupils equal round and reactive to light, extra-ocular motions intact. Lids and jr8 lashes normal. Conjunctiva and sclera are non-icteric and not injected. Cornea within normal limits. Periorbital areas with no swelling, redness, or edema. ENT: Nares patent. No nasal discharge, no septal abnormalities noted. Tympanic membranes are normal and external auditory canals are clear. Oropharynx with no redness, swelling, or masses, exudates, or evidence of obstruction, uvula midline. Mucous membranes moist. Neck: Trachea midline, no thyromegaly or masses palpated, and no cervical lymphadenopathy. Supple, full range of motion without nuchal rigidity, or vertebral point tenderness. No Meningismus. Cardiovascular: Regular rate and rhythm with a normal S1 and S2. No gallops, murmurs, or rubs. Normal PMI, no JVD. No pulse deficits. Respiratory: Lungs have equal breath sounds bilaterally, clear to auscultation and percussion. No rales, rhonchi or wheezes noted. No increased work of breathing, no retractions or nasal flaring. Abdomen/GI: Soft, non-tender, with normal bowel sounds. No distension or tympany. No guarding or rebound. No evidence of tenderness throughout. Back: No spinal tenderness. No costovertebral tenderness. Full range of motion. Skin: Warm, dry with normal turgor. Normal color with no rashes, no lesions, and no evidence of cellulitis. MS/ Extremity: Pulses equal, no cyanosis. Neurovascular intact. Full, normal range of motion. Neuro: Awake and alert, GCS 15, oriented to person, place, time, and situation. Cranial nerves II-XII grossly intact. Motor strength 5/5 in all extremities. Sensory grossly intact. Cerebellar exam normal. Normal gait. Vital Signs: 17:55 BP 191 / 83; Pulse 63; Resp 18; Temp 98.3; Pulse Ox 100% ; Weight 68.04 kg; Height 5 ll1 ft. 9 in. (175.26 cm); Pain 5/10; 18:59 BP 177 / 80; Pulse 71; ss 20:09 BP 160 / 80; Pulse 70; Resp 18; Temp 98.2; Pulse Ox 98% ; ea 17:55 Body Mass Index 22.15 (68.04 kg, 175.26 cm) ll1 MDM: 18:01 Patient medically screened. jr8 19:48 Data reviewed: vital signs, nurses notes, lab test result(s), radiologic studies, CT jr8 scan. Data interpreted: Pulse oximetry: on room air is 100 %. Interpretation: normal. Counseling: I had a detailed discussion with the patient and/or guardian regarding: the historical points, exam findings, and any diagnostic results supporting the discharge/admit diagnosis, lab results, radiology results, the need for outpatient follow up, a family practitioner, to return to the emergency department if symptoms worsen or persist or if there are any questions or concerns that arise at home. ED course: BP normalizing. Feeling better. No acute focal neurologic findings on exam. Labs stable. Will d/c home to f/u with PCP. Knows to come back if worse. Patient given ativan at the end for PTSD from losing here recently. 11/09 18:15 Order name: CBC with Diff; Complete Time: 19:28 jr8 11/09 18:15 Order name: Basic Metabolic Panel; Complete Time: 18:52 jr8 11/09 18:15 Order name: CT Head Brain wo Cont jr8 11/09 18:15 Order name: IV; Complete Time: 18:25 jr8 11/09 18:15 Order name: EKG - Nurse/Tech; Complete Time: 18:25 jr8 Administered Medications: 18:33 Drug: hydrALAZINE 10 mg Route: IV; Rate: calculated rate; Site: right antecubital; ss 20:10 Follow up: IV Status: Completed infusion ea 18:34 Drug: Zofran (Ondansetron) 4 mg Route: IVP; Site: right antecubital; ss 20:10 Follow up: Response: No adverse reaction ea 19:54 Drug: TORadol 30 mg Route: IVP; Site: right antecubital; ea 20:10 Follow up: Response: No adverse reaction ea 19:54 Drug: Ativan 1 mg Route: IVP; Site: right antecubital; ea 20:10 Follow up: Response: No adverse reaction ea Disposition: 11/10 09:05 Co-signature as Attending Physician, Floyd Lua MD I agree with the assessment and kdr plan of care. Disposition: 11/10/19 19:49 Discharged to Home. Impression: Hypertensive Urgency . - Condition is Stable. - Discharge Instructions: Hypertension. - Medication Reconciliation Form, Thank You Letter, Antibiotic Education, Prescription Opioid Use form. - Follow up: Private Physician; When: 1 - 2 days; Reason: Recheck today's complaints, Continuance of care, Re-evaluation by your physician. - Problem is new. - Symptoms have improved. Signatures: Dispatcher [employer] EDFloyd Goldsmith MD MD kdr Smirch, Shelby RN RN Orville Edwards PA PA jr8 Marian Mancilla RN RN ea Lewis, Lynsay RN RN ll1 Corrections: (The following items were deleted from the chart) 11/09 20:10 19:49 11/10/2019 19:49 Discharged to Home. Impression: Hypertensive Urgency . Condition ea is Stable. Forms are Medication Reconciliation Form, Thank You Letter, Antibiotic Education, Prescription Opioid Use. Follow up: Private Physician; When: 1 - 2 days; Reason: Recheck today's complaints, Continuance of care, Re-evaluation by your physician. Problem is new. Symptoms have improved. jr8
--- NOTE | 2019-11-10 19:50 | ER ---
Nurse's Notes [facility] Name: Maycol Corona Age: 69 yrs Sex: Male : 1950 Arrival Date: 11/10/2019 Time: 17:37 Bed 7 Private MD: Diagnosis: Hypertensive Urgency Presentation: 11/09 17:55 Chief complaint: Patient states: HAY for 2-3 days. + neck pain. BP at home 216/109. ll1 Coronavirus screen: Client denies travel out of the [place] in the last 14 days. At this time, the client does not indicate any symptoms associated with coronavirus-19. Ebola Screen: Patient denies travel to an Ebola-affected area in the 21 days before illness onset. Initial Sepsis Screen: Does the patient meet any 2 criteria? No. Patient's initial sepsis screen is negative. Risk Assessment: Do you want to hurt yourself or someone else? Patient reports no desire to harm self or others. Onset of symptoms was November 08, 2019. 17:55 Method Of Arrival: Ambulatory ll1 17:55 Acuity: JOSE 2 ll1 20:09 Initial Sepsis Screen: Does the patient have a suspected source of infection? No. ll2 Patient's initial sepsis screen is negative. Triage Assessment: 20:10 Pain: Also complains of. ll2 Historical: - Allergies: 17:57 No Known Allergies; ll1 - PMHx: 17:57 Chronic pain; High Cholesterol; herniated disk; CVA; Back pain; neck pain; Pneumothorax;ll1 - PSHx: 17:57 triple bypass; ll1 - Immunization history:: Flu vaccine is not up to date. - Social history:: Smoking status: Patient/guardian denies using tobacco, the patient reports quitting approximately 25 years ago. Screenin:15 Abuse screen: Denies threats or abuse. Denies injuries from another. Nutritional ss screening: No deficits noted. Tuberculosis screening: Never had TB. Fall Risk None identified. Assessment: 18:15 General: Appears uncomfortable, Behavior is calm, cooperative, Denies fever, chills. ss Pain: Complains of pain in base of the skull, posterior neck Pain currently is 5 out of 10 on a pain scale. Quality of pain is described as aching, Pain began 2-3 days ago. Pt reports that his neck pain "acts up" sometimes. Neuro: Level of Consciousness is awake, alert, obeys commands, Oriented to person, place, time, situation. Cardiovascular: Capillary refill < 3 seconds is brisk in bilateral fingers. Respiratory: Airway is patent Respiratory effort is even, unlabored, Respiratory pattern is regular, symmetrical. GI: Reports nausea, Patient currently denies diarrhea, vomiting. : No signs and/or symptoms were reported regarding the genitourinary system. EENT: Nares are clear Oral mucosa is moist. Derm: Skin is intact, is healthy with good turgor, Skin is dry, Skin is pink, warm \\T\\ dry. normal. Musculoskeletal: Circulation, motion, and sensation intact. Range of motion: intact in all extremities, Swelling absent. 18:36 Reassessment: Pt to CT now VIA stretcher. ss 20:09 Reassessment: Patient and/or family updated on plan of care and expected duration. Pain ea level reassessed. Patient is alert, oriented x 3, equal unlabored respirations, skin warm/dry/pink. Discharge instruction given to patient, verbalized the understanding of instruction. Pt left ED ambulatory accompanied by family, pt tolerating well. Vital Signs: 17:55 BP 191 / 83; Pulse 63; Resp 18; Temp 98.3; Pulse Ox 100% ; Weight 68.04 kg; Height 5 ll1 ft. 9 in. (175.26 cm); Pain 5/10; 18:59 BP 177 / 80; Pulse 71; ss 20:09 BP 160 / 80; Pulse 70; Resp 18; Temp 98.2; Pulse Ox 98% ; ea 17:55 Body Mass Index 22.15 (68.04 kg, 175.26 cm) ll1 ED Course: 17:37 Patient arrived in ED. ds1 17:57 Triage completed. ll1 17:58 Arm band placed on Patient placed in an exam room, on a stretcher. ll1 18:01 Orville Palafox PA is PHCP. jr8 18:01 Floyd Lua MD is Attending Physician. jr8 18:03 Bran Morales, ROSY is Primary Nurse. em 18:15 Patient has correct armband on for positive identification. Bed in low position. Call light in reach. 18:25 EKG done, by ED staff, reviewed by Orville AGUILAR. dh3 18:27 Inserted saline lock: 20 gauge in right antecubital area, using aseptic technique. Blood collected. 18:41 CT Head Brain wo Cont In Process Unspecified. EDMS 20:08 No provider procedures requiring assistance completed. IV discontinued, intact, ea bleeding controlled, No redness/swelling at site. Pressure dressing applied. Administered Medications: 18:33 Drug: hydrALAZINE 10 mg Route: IV; Rate: calculated rate; Site: right antecubital; ss 20:10 Follow up: IV Status: Completed infusion ea 18:34 Drug: Zofran (Ondansetron) 4 mg Route: IVP; Site: right antecubital; ss 20:10 Follow up: Response: No adverse reaction ea 19:54 Drug: TORadol 30 mg Route: IVP; Site: right antecubital; ea 20:10 Follow up: Response: No adverse reaction ea 19:54 Drug: Ativan 1 mg Route: IVP; Site: right antecubital; ea 20:10 Follow up: Response: No adverse reaction ea Outcome: 19:49 Discharge ordered by MD. hwang 20:08 Discharged to home ambulatory, with family. ea 20:08 Condition: stable 20:08 Discharge instructions given to patient, Instructed on discharge instructions, follow up and referral plans. Demonstrated understanding of instructions, follow-up care. 20:10 Patient left the ED. ea Signatures: Dispatcher [employer] EDBran Moreland, RN Jyoti Gomez ds1 Aure Canseco RN RN ss Roszak, Josh, PA PA [facility] Maxine Santacruz 3 Marian Mancilla RN RN ea Linscombe, Lacie RN RN [email or web address] Melchor Martinez RN RN ll1 Corrections: (The following items were deleted from the chart) 19:05 18:35 EKG done, by ED staff, reviewed by Orville AGUILAR 3 3
[2019-11-10] MEDS ORDERED: KETOROLAC 30 MG/ML INJ ONE (20:02)
[2019-11-10] MEDS ORDERED: LORazepam 2 MG/ML VIAL ONE (20:02)
[2019-11-10 20:34] VITALS: BP 160/80; TEMP 98.2; O2SAT 98
--- NOTE | 2019-11-11 00:20 | RAD REPORT ---
EXAM DESCRIPTION: CT - Head Brain Wo Cont - 11/10/2019 10:23 pm CLINICAL HISTORY: HEADACHE Headache, drowsiness COMPARISON: No comparisons TECHNIQUE: All CT scans are performed using dose optimization technique as appropriate and may inclu de automated exposure control or mA/KV adjustment according to patient size. FINDINGS: No intracranial hemorrhage, hydrocephalus or extra-axial fluid collection.Mild brain atrop hy is noted.No areas of brain edema or evidence of midline shift. The paranasal sinuses and mastoids are clear. The calvarium is intact. IMPRESSION: No acute intracranial abnormality.
--- NOTE | 2019-11-12 08:22 | EKG ---
Test Date: 2019-11-10 Test Time: 18:29:24 Crystal Gazer: KAREEM MEASUREMENT RESULTS: Intervals: Rate: 64 MN: 154 QRSD: 94 QT: 440 QTc: 453 [place]: P: 64 MN: 154 QRS: 14 T: 57 INTERPRETIVE STATEMENTS: Normal sinus rhythm Possible Left atrial enlargement Left ventricular hypertrophy Abnormal ECG Compared to ECG 01/09/2019 17:58:48 Sinus bradycardia no longer present Early repolarization no longer present Electronically Signed On 11-12-19 08:19:31 CDT by Danilo Parker
== END 2019-11-10 20:10 | disposition home or self-care (01) ==
LOC: ER 17:36
DX: I16.0 Hypertensive urgency (principal); Z86.73 Personal history of transient ischemic attack (TIA), and cerebral infarction without residual deficits
CPT/HCPCS: 96365; 93005; 85025; 80048; 36415; 70450; 96375; 99284; 96366; J0360; J2405

== ENCOUNTER 2019-11-11 19:59 | Emergency (ER) | payer OTHER ==
[2019-11-11 21:04] LABS: Absolute Lymphocytes (CBC) 1.2 K/uL (0.7-4.9); Basophils % 0.4 % (0-1.3); Hematocrit 38.8 % (39.6-49.0); Lymphocytes % 15.8 % (15.3-44.8); MPV 11.6 fL (7.6-11.3); RBC Red Blood Cell Count 4.81 M/uL (4.33-5.43)
[2019-11-11 21:11] LABS: ALT/SGPT 18 U/L (12-78); AST/SGOT 12 U/L (15-37); Albumin 3.7 g/dL (3.4-5.0); Alkaline Phosphatase 119 U/L (45-117); BUN Blood Urea Nitrogen 12 mg/dL (7-18); Bicarbonate 25 mmol/L (21-32); Bilirubin Direct 0.2 mg/dL (0-0.2); Bilirubin Total 0.6 mg/dL (0.2-1.0); Glucose Level 110 mg/dL (74-106); NT PRO-BNP 861 pg/mL (<125); Potassium 3.8 mmol/L (3.5-5.1); Protein, Total 8.2 g/dL (6.4-8.2); Sodium Level 140 mmol/L (136-145); Troponin (Emerg Dept Use Only) < 0.02 ng/mL (0.0-0.045)
--- NOTE | 2019-11-11 21:27 | RAD REPORT ---
EXAM DESCRIPTION: Trung Single View11/11/2019 8:42 pm CLINICAL HISTORY: Cough COMPARISON: 2019 FINDINGS: A few areas scarring are present within the right lung. The lungs appear clear of acute infiltrate. The heart is mildly enlarged. Postsurgical changes involve the chest. Blunting of the right costophrenic sulcus either secondary to a small pleural effusion or thickening
[2019-11-11 21:31] LABS: Anisocytosis 1+; Blood Morphology Comment NOTED (NOT SEEN); Platelet Estimate DECR; White Blood Cell Scan OK (OK)
[2019-11-11 21:47] LABS: Urine Blood NEGATIVE (NEG); Urine Glucose NEGATIVE (NEG); Urine Protein NEGATIVE (NEG); Urine pH 7.5 (5.0-7.0)
[2019-11-11] MEDS ORDERED: lisinopriL 10 MG TAB ONE (21:52)
--- NOTE | 2019-11-11 22:09 | EDPHYS ---
Physician Documentation [facility] Name: Maycol Corona Age: 69 yrs Sex: Male : 1950 Arrival Date: 11/11/2019 Time: 20:00 Bed 14 Private MD: Tone Bingham HPI: 11/10 21:26 This 69 yrs old Male presents to ER via Ambulatory with complaints of High mary Blood Pressure. 21:26 The patient has elevated blood pressure and discovered this at home. Onset: The mary symptoms/episode began/occurred today. Modifying factors: The symptoms are aggravated by activity, The symptoms are alleviated by remaining still. Associated signs and symptoms: Pertinent positives: nausea, vomiting. Severity of symptoms: At its worst the blood pressure was. The patient has experienced similar episodes in the past, a few times. Historical: - Allergies: 20:09 No Known Allergies; jd3 - Home Meds: 20:09 Butalbital Compound 50-300-40 mg tab Oral tab [Active]; meloxicam 7.5 mg Oral tab jd3 [Active]; [place] 10-325 mg Oral tab 1 tab twice a day [Active]; fiorcet [Active]; sertraline 100 mg Oral tab 1 tab once daily [Active]; simvastatin 20 mg Oral tab [Active]; famotidine 20 mg Oral tab [Active]; acetaminophen-codeine 300-30 mg Oral tab [Active]; tizanidine 4 mg Oral tab [Active]; Simvastatin Oral once daily [Active]; Zoloft 100 mg Oral tab 1 tab once daily [Active]; - PMHx: 20:09 herniated disk; neck pain; High Cholesterol; CVA; Back pain; Chronic pain; Pneumothorax;jd3 - PSHx: 20:09 triple bypass; jd3 - Immunization history:: Adult Immunizations unknown. - Social history:: Smoking status: Patient denies any tobacco usage or history of. ROS: 21:26 Constitutional: Negative for fever, chills, and weight loss, Eyes: Negative for injury, mary pain, redness, and discharge, ENT: Negative for injury, pain, and discharge, Neck: Negative for injury, pain, and swelling, Cardiovascular: Negative for chest pain, palpitations, and edema, Respiratory: Negative for shortness of breath, cough, wheezing, and pleuritic chest pain, Back: Negative for injury and pain, : Negative for injury, bleeding, discharge, and swelling, MS/Extremity: Negative for injury and deformity, Skin: Negative for injury, rash, and discoloration, Neuro: Negative for headache, weakness, numbness, tingling, and seizure, Psych: Negative for depression, anxiety, suicide ideation, homicidal ideation, and hallucinations, Allergy/Immunology: Negative for hives, rash, and allergies, Endocrine: Negative for neck swelling, polydipsia, polyuria, polyphagia, and marked weight changes, Hematologic/Lymphatic: Negative for swollen nodes, abnormal bleeding, and unusual bruising. 21:26 Abdomen/GI: Positive for nausea and vomiting. Exam: 21:26 Constitutional: This is a well developed, well nourished patient who is awake, alert, mary and in no acute distress. Head/Face: Normocephalic, atraumatic. Eyes: Pupils equal round and reactive to light, extra-ocular motions intact. Lids and lashes normal. Conjunctiva and sclera are non-icteric and not injected. Cornea within normal limits. Periorbital areas with no swelling, redness, or edema. ENT: Nares patent. No nasal discharge, no septal abnormalities noted. Tympanic membranes are normal and external auditory canals are clear. Oropharynx with no redness, swelling, or masses, exudates, or evidence of obstruction, uvula midline. Mucous membranes moist. Neck: Trachea midline, no thyromegaly or masses palpated, and no cervical lymphadenopathy. Supple, full range of motion without nuchal rigidity, or vertebral point tenderness. No Meningismus. Chest/axilla: Normal chest wall appearance and motion. Nontender with no deformity. No lesions are appreciated. Cardiovascular: Regular rate and rhythm with a normal S1 and S2. No gallops, murmurs, or rubs. Normal PMI, no JVD. No pulse deficits. Respiratory: Lungs have equal breath sounds bilaterally, clear to auscultation and percussion. No rales, rhonchi or wheezes noted. No increased work of breathing, no retractions or nasal flaring. Abdomen/GI: Soft, non-tender, with normal bowel sounds. No distension or tympany. No guarding or rebound. No evidence of tenderness throughout. Back: No spinal tenderness. No costovertebral tenderness. Full range of motion. Skin: Warm, dry with normal turgor. Normal color with no rashes, no lesions, and no evidence of cellulitis. MS/ Extremity: Pulses equal, no cyanosis. Neurovascular intact. Full, normal range of motion. Neuro: Awake and alert, GCS 15, oriented to person, place, time, and situation. Cranial nerves II-XII grossly intact. Motor strength 5/5 in all extremities. Sensory grossly intact. Cerebellar exam normal. Normal gait. Psych: Awake, alert, with orientation to person, place and time. Behavior, mood, and affect are within normal limits. 21:26 Musculoskeletal/extremity: DVT Exam: No signs of deep vein thrombosis. no pain, no swelling, no tenderness, negative Homans' sign noted on exam, no appreciated bluish discoloration, no erythema, no increased warmth. 21:37 ECG was reviewed by the Attending Physician. mary 22:07 Cardiovascular: Rate: normal, Rhythm: regular, Pulses: Pulses are 4+ in bilateral mary radial, brachial, femoral, popliteal, posterior tibial and and dorsalis pedis arteries.. Heart sounds: normal, normal S1and S2, no S3 or S4, no murmur, no rub, no gallop, Edema: is not appreciated, JVD: is not appreciated. Vital Signs: 20:09 BP 191 / 90; Pulse 61; Resp 17 S; Temp 98.2(O); Pulse Ox 100% on R/A; Weight 68.04 kg jd3 (R); Height 5 ft. 9 in. (175.26 cm) (R); Pain 3/10; 20:45 BP 175 / 80; Pulse 60; Resp 15 S; Pulse Ox 100% on R/A; ca1 21:28 BP 175 / 81; Pulse 67; Resp 18; Pulse Ox 100% ; ca1 22:29 BP 166 / 85; Pulse 63; Resp 17 S; Pulse Ox 100% on R/A; jd3 20:09 Body Mass Index 22.15 (68.04 kg, 175.26 cm) jd3 MDM: 20:13 Patient medically screened. mary 21:29 Differential diagnosis: Nonspecific abd pain, pancreatitis, hypertensive crisis, mary Malignant HTN. Data reviewed: vital signs, nurses notes, lab test result(s), EKG, radiologic studies, CT scan, plain films. Data interpreted: monitoring specialist: rate is 61 beats/min, rhythm is regular, Pulse oximetry: on room air is 100 %. Test interpretation: by ED physician or midlevel provider: ECG, plain radiologic studies. 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 11/10 20:15 Order name: Basic Metabolic Panel; Complete Time: 21:30 mary 11/10 20:15 Order name: CBC with Diff; Complete Time: 22:06 mary 11/10 20:15 Order name: LFT's; Complete Time: 21:30 [facility] 11/10 20:15 Order name: Magnesium; Complete Time: 21:30 [facility] 11/10 20:15 Order name: NT PRO-BNP; Complete Time: 21:30 [facility] 11/10 20:15 Order name: Troponin (emerg Dept Use Only); Complete Time: 21:30 [facility] 11/10 20:15 Order name: XRAY Chest (1 view); Complete Time: 21:30 [facility] 11/10 20:15 Order name: EKG; Complete Time: 20:16 [facility] 11/10 20:15 Order name: Cardiac monitoring; Complete Time: 20:43 [facility] 11/10 20:15 Order name: EKG - Nurse/Tech; Complete Time: 21:15 mary 11/10 21:31 Order name: Lipase mary 11/10 21:31 Order name: CBC Smear Scan; Complete Time: 22:06 EDMS 11/10 21:42 Order name: Urine Dipstick--Ancillary (enter results); Complete Time: 22:06 ar5 11/10 20:15 Order name: IV Saline Lock; Complete Time: 21:15 mary 11/10 20:15 Order name: Labs collected and sent; Complete Time: 20:44 mary 11/10 20:15 Order name: O2 Per Protocol; Complete Time: 20:43 mary 11/10 20:15 Order name: O2 Sat Monitoring; Complete Time: 20:43 mary 11/10 20:15 Order name: Urine Dipstick-Ancillary (obtain specimen); Complete Time: 21:41 mary EC:37 Rate is 61 beats/min. Rhythm is regular. QRS [place] is Normal. [place] interval is normal. QRS mary interval is normal. QT interval is normal. No Q waves. T waves are Normal. No ST changes noted. Clinical impression: NSR w/ Non-specific ST/T Changes and No evidence of ischemia. Interpreted by me. Reviewed by me. Administered Medications: :41 Drug: Lisinopril 10 mg Route: PO; ca1 22:30 Follow up: Response: No adverse reaction jd3 Disposition: 11/11/19 22:07 Discharged to Home. Impression: Essential (primary) hypertension, Nausea and vomiting. - Condition is Stable. - Discharge Instructions: Hypertension, Nausea and Vomiting, Adult, Hypertension, [id number], How to Take Your Blood Pressure, [id number], Aspirin and Your Heart, Managing Your Hypertension. - Prescriptions for Coreg 12.5 mg Oral tablet - take 1 tablet by ORAL route 2 times per day with food; 40 tablet. Zofran 4 mg Oral Tablet - take 1 tablet by ORAL route every 12 hours As needed; 20 tablet. Lisinopril 10 mg Oral Tablet - take 1 tablet by ORAL route once daily; 20 tablet. - Medication Reconciliation Form, Thank You Letter, Antibiotic Education, Prescription Opioid Use form. - Follow up: Private Physician; When: 2 - 3 days; Reason: Recheck today's complaints, Continuance of care, Re-evaluation by your physician. Follow up: Danilo Parker; When: 2 - 3 days; Reason: Recheck today's complaints, Continuance of care, Re-evaluation by your physician. - Problem is new. - Symptoms have improved. Signatures: Dispatcher [employer] Tone Archer MD MD cha Davies, Jonathon, RN RN jd3 Reta Sheth RN RN ca1 Corrections: (The following items were deleted from the chart) 22:30 22:07 11/11/2019 22:07 Discharged to Home. Impression: Essential (primary) jd3 hypertension; Nausea and vomiting. Condition is Stable. Discharge Instructions: Hypertension, Nausea and Vomiting, Adult, Hypertension, [id number], How to Take Your Blood Pressure, [id number], Aspirin and Your Heart, Managing Your Hypertension. Prescriptions for Coreg 12.5 mg Oral tablet - take 1 tablet by ORAL route 2 times per day with food; 40 tablet, Zofran 4 mg Oral Tablet - take 1 tablet by ORAL route every 12 hours As needed; 20 tablet, Lisinopril 10 mg Oral Tablet - take 1 tablet by ORAL route once daily; 20 tablet. and Forms are Medication Reconciliation Form, Thank You Letter, Antibiotic Education, Prescription Opioid Use. Follow up: Private Physician; When: 2 - 3 days; Reason: Recheck today's complaints, Continuance of care, Re-evaluation by your physician. Follow up: Danilo Parker; When: 2 - 3 days; Reason: Recheck today's complaints, Continuance of care, Re-evaluation by your physician. Problem is new. Symptoms have improved. mary
--- NOTE | 2019-11-11 22:09 | ER ---
Nurse's Notes [facility] Name: Maycol Corona Age: 69 yrs Sex: Male : 1950 Arrival Date: 11/11/2019 Time: 20:00 Bed 14 Private MD: Diagnosis: Essential (primary) hypertension;Nausea and vomiting Presentation: 11/10 20:05 Chief complaint: Patient states: "I am having high blood pressure. I was here last jd3 night for the same thing. nausea and vomiting prior to arrival.". Coronavirus screen: At this time, the client does not indicate any symptoms associated with coronavirus-19. Ebola Screen: Patient negative for fever greater than or equal to 101.5 degrees Fahrenheit, and additional compatible Ebola Virus Disease symptoms. Initial Sepsis Screen: Does the patient meet any 2 criteria? No. Patient's initial sepsis screen is negative. Does the patient have a suspected source of infection? No. Patient's initial sepsis screen is negative. Risk Assessment: Do you want to hurt yourself or someone else? Patient reports no desire to harm self or others. Onset of symptoms was November 11, 2019. 20:05 Method Of Arrival: Ambulatory jd3 20:05 Acuity: JOSE 3 jd3 Historical: - Allergies: 20:09 No Known Allergies; jd3 - Home Meds: 20:09 Butalbital Compound 50-300-40 mg tab Oral tab [Active]; meloxicam 7.5 mg Oral tab jd3 [Active]; [place] 10-325 mg Oral tab 1 tab twice a day [Active]; fiorcet [Active]; sertraline 100 mg Oral tab 1 tab once daily [Active]; simvastatin 20 mg Oral tab [Active]; famotidine 20 mg Oral tab [Active]; acetaminophen-codeine 300-30 mg Oral tab [Active]; tizanidine 4 mg Oral tab [Active]; Simvastatin Oral once daily [Active]; Zoloft 100 mg Oral tab 1 tab once daily [Active]; - PMHx: 20:09 herniated disk; neck pain; High Cholesterol; CVA; Back pain; Chronic pain; Pneumothorax;jd3 - PSHx: 20:09 triple bypass; jd3 - Immunization history:: Adult Immunizations unknown. - Social history:: Smoking status: Patient denies any tobacco usage or history of. Screenin:47 Abuse screen: Denies threats or abuse. Denies injuries from another. Nutritional ca1 screening: No deficits noted. Tuberculosis screening: No symptoms or risk factors identified. Fall Risk IV access (20 points). Assessment: 20:30 General: Appears in no apparent distress. comfortable, Behavior is calm, cooperative, ca1 appropriate for age. Pain: Denies pain. Neuro: Level of Consciousness is awake, alert, obeys commands, Oriented to person, place, time, situation. Cardiovascular: Heart tones S1 S2 present Capillary refill < 3 seconds Patient's skin is warm and dry. Respiratory: Airway is patent Respiratory effort is even, unlabored, Respiratory pattern is regular, symmetrical, Breath sounds are clear bilaterally. GI: No deficits noted. No signs and/or symptoms were reported involving the gastrointestinal system. : No deficits noted. No signs and/or symptoms were reported regarding the genitourinary system. EENT: No deficits noted. No signs and/or symptoms were reported regarding the EENT system. Derm: Skin is intact, is healthy with good turgor, Skin is pink, warm \\T\\ dry. Musculoskeletal: Circulation, motion, and sensation intact. Capillary refill < 3 seconds. 21:28 Reassessment: Patient appears in no apparent distress at this time. Patient and/or ca1 family updated on plan of care and expected duration. Pain level reassessed. Patient is alert, oriented x 3, equal unlabored respirations, skin warm/dry/pink. 22:29 Reassessment: Patient appears in no apparent distress at this time. Patient and/or jd3 family updated on plan of care and expected duration. Pain level reassessed. Patient is alert, oriented x 3, equal unlabored respirations, skin warm/dry/pink. Patient states feeling better. Vital Signs: 20:09 BP 191 / 90; Pulse 61; Resp 17 S; Temp 98.2(O); Pulse Ox 100% on R/A; Weight 68.04 kg jd3 (R); Height 5 ft. 9 in. (175.26 cm) (R); Pain 3/10; 20:45 BP 175 / 80; Pulse 60; Resp 15 S; Pulse Ox 100% on R/A; ca1 21:28 BP 175 / 81; Pulse 67; Resp 18; Pulse Ox 100% ; ca1 22:29 BP 166 / 85; Pulse 63; Resp 17 S; Pulse Ox 100% on R/A; jd3 20:09 Body Mass Index 22.15 (68.04 kg, 175.26 cm) jd3 ED Course: 20:00 Patient arrived in ED. am2 20:06 Triage completed. jd3 20:09 Arm band placed on. jd3 20:13 Tone Lee MD is Attending Physician. mary 20:19 Reta Sheth, RN is Primary Nurse. ca1 20:40 No provider procedures requiring assistance completed. Initial lab(s) drawn, by wi, ca1 sent to lab. Inserted saline lock: 20 gauge in right antecubital area, using aseptic technique. Blood collected. 20:42 XRAY Chest (1 view) In Process Unspecified. EDMS 20:47 Patient has correct armband on for positive identification. Placed in gown. Bed in low ca1 position. Call light in reach. Side rails up X2. youth nutritional monitor on. Pulse ox on. NIBP on. Warm blanket given. 22:07 Danilo Parker MD is Referral Physician. mary 22:30 IV discontinued, intact, bleeding controlled, No redness/swelling at site. Pressure jd3 dressing applied. Administered Medications: 21:41 Drug: Lisinopril 10 mg Route: PO; ca1 22:30 Follow up: Response: No adverse reaction jd3 Outcome: 22:07 Discharge ordered by . mary 22:29 Discharged to home ambulatory, with family. jd3 22:29 Condition: stable 22:29 Discharge instructions given to patient, Instructed on discharge instructions, follow up and referral plans. medication usage, Demonstrated understanding of instructions, follow-up care, medications, Prescriptions given X 3. 22:30 Patient left the ED. jd3 Signatures: Dispatcher [employer] EDNC Tone Lee MD MD cha Moreno, Amanda am2 Slick Tse RN RN jd3 Reta Sheth RN RN ca1 Corrections: (The following items were deleted from the chart) 20:12 20:05 Chief complaint: Patient states: "I am having high blood pressure. I was here jd3 last night for the same thing." jd3
[2019-11-11 23:09] VITALS: TEMP 98.2; O2SAT 100
[2019-11-11 23:14] VITALS: BP 166/85
--- NOTE | 2019-11-12 08:20 | EKG ---
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
--- OUTSIDE RECORDS SUMMARY | 2019-11-16 21:51 | XMS REPORT | Clinical Summary ---
:1950 Author Organization [facility] Address [address] [place] [address] Care Team Providers Name Role Phone Toshia Montanez Primary Care Provider Allergies Active Allergy Reactions Severity Noted Date Comments Other Nausea And Vomiting 03/03/2019 Allergic to pre op medication, unknown name. Will bring name on dos Medications Medication Sig Dispensed Refills Start Date End Date Status sertraline (ZOLOFT) Take 100 mg by 0 Active 100 MG tablet mouth daily. HYDROcodone-acetamin Take 1 tablet 0 Active ophen (NORCO 10-325) by mouth every 10-325 mg per tablet 6 (six) hours as needed for Pain. melatonin 10 mg Cap Take by mouth 0 Active nightly 1-2 tabs . amiodarone Take 1 tablet 90 tablet 3 03/22/2019 03/21/19 Acti ve (PACERONE) 200 MG (200 mg total) 21 tablet by mouth daily. aspirin 81 MG Take 1 tablet 90 tablet 3 03/22/2019 03/21/19 A ctive chewable tablet (81 mg total) 21 by mouth daily. aspirin 81 MG EC Take 81 mg by 0 03/21/19 Discontinued tablet mouth daily. 20 atorvastatin Take 80 mg by 0 03/21/19 Dis continued (LIPITOR) 80 MG mouth daily. 20 tablet clopidogrel (PLAVIX) Take 75 mg by 0 03/21 Discontinued 75 mg tablet mouth daily. 20 meloxicam (MOBIC) Take 7.5 mg by 0 0 Discontinued 7.5 MG tablet mouth daily. 20 pantoprazole Take 20 mg by 0 03/21/19 Dis continued (PROTONIX) 20 MG mouth daily. 20 tablet isosorbide Take 30 mg by 0 03/21/19 Disco ntinued mononitrate (IMDUR) mouth daily. 20 30 MG [address] 0.4 mg 0 03/21/19 Dis continued (NITROSTAT) 0.4 MG under the 20 SL tablet tongue every 5 (five) minutes as needed for Chest pain Put 1 pill under tongue every 5min as needed for chest pain.No more than 3 doses in 15min.Call 911 if pain is unrelieved 5min after 1st dose . butalb/acetaminophen Take by mouth. 0 03/12 0 Discontinued /caffeine (ESGIC 20 ORAL) tiZANidine Take 4 mg by 0 03/21/19 Discon tinued (ZANAFLEX) 4 MG mouth every 6 20 tablet (six) hours as needed. diphenhydrAMINE Take 50 mg by 0 03/21/19 Discontinued (BENADRYL) 25 mg mouth every 20 tablet night as needed for Sleep. atorvastatin Take 0.5 45 tablet 0 03/21/2019 06/19/19 d (LIPITOR) 80 MG tablets (40 mg 20 tablet total) by mouth daily for 90 days. pantoprazole Take 2 tablets 90 tablet 0 03/21/2019 06/19/19 E xpired (PROTONIX) 20 MG (40 mg total) 20 tablet by mouth daily for 90 days. apixaban (ELIQUIS) 5 Take 1 tablet 60 tablet 0 03/21/201904/09 mg Tab tablet (5 mg total) by 20 mouth 2 (two) times daily for 30 days. metoprolol Take 0.5 90 tablet 0 03/21/2019 06/19/19 (LOPRESSOR) 25 MG tablets (12.5 20 tablet mg total) by mouth 2 (two) times daily for 90 days. tamsulosin (FLOMAX) Take 1 capsule 30 capsule 0 03/22/201901/28 0.4 mg Cap 24 hr (0.4 mg total) 20 capsule by mouth daily for 30 days. Active Problems Problem Noted Date Urinary retention 03/18/2019 Former smoker (quit 1984) 03/15/2019 GERD (gastroesophageal reflux disease) 03/15/2019 CVA (cerebral vascular accident) with residual short t erm memory problems 03/15/2019 and generalized weakness (2015) ETOH abuse (liquor/beer/wine 14-21 drinks per week, "3 tequila drinks a 03/15/2019 day - stopped 8 days ago") H/O Squamous cell carcinoma S/P skin cancer excision 0 03/15/2019 HLD (hyperlipidemia) 03/15/2019 Thrombocytopenia (on Plavix) 03/15/2019 Acute blood loss anemia 03/15/2019 Coronary artery disease s/p CABG x 3 (CHARLENE-RCA, CURRAN-L AD, SVG-ramus) by 03/04/2019 Dr. Hayes 03/15/2019 H/O STEMI (ST elevation myocardial infarction) (HCC) ( 01/13/2019) 01/14/2019 HTN (hypertension), chronic arterial 01/14/2019 Resolved Problems Problem Noted Date Resolved Date Hypothermia associated with surgery 03/15/20190 06/2019 Acute respiratory insufficiency 03/15/2019 03/16/19 20 Encounters Date Type Specialty Care Team Description 04/27/2019 Telephone NANCY Alfaro 30 day post Halley Harris RN discharge f/u call 03/21/2019 [facility] Intensive Care Navdeep Hardik Encounter GUSTAVO Arzola 03/19/2019 Travel 03/15/2019 Surgery Sheldon Hayes BYPASS,AORTO CORONARY MD David KAROLYN/LIBRADO 03/15/2019 Anesthesia Event Rupert Joseph MD 03/15/2019 - Hospital Encounter Cardiology Sheldon Hayes Pretty ry artery disease s/p CABG x 3 (CHARLENE-RCA, CURRAN-LAD, SVG-ramus) by Dr. Hayes 03/15/2019 (Primary Dx); 03/21/2019 MD David Acute blood lo ss anemia; Acute respirato ry insufficiency; Hemodynamically unstable 03/08/2019 Hospital Encounter Cardiology Sheldon Hayes MD 03/08/2019 Hospital Encounter Sheldon Hayes MD 03/08/2019 Hospital Encounter Pre-Admission Sheldon Hayes Coron juan artery Testing MD David disease involv ing [place] coronary artery of [place] heart without angina pectoris 03/08/2019 Office Visit Cardiology Sheldon Hayes Essential hy pertension (Primary Dx); MD David Coronary arter y disease involving [place] coronary artery of [place] heart without angina pectoris; NSTEMI (non-ST elevated myocardial infarction) (HCC) 03/08/2019 Outside Orders Chitra Montanez 03/07/2019 Orders Only Cardiology Sheldon Hayes Coronary art ana Hernandez MD disease involv ing [place] coronary artery of [place] heart without angina pectoris (Prima ry Dx) 03/03/2019 Hospital Encounter Pre-Admission Testing after 11/15/2018 Family History Medical History Relation Name Comments Heart disease Father Stroke Mother Relation Name Status Comments Father Mother Social History Tobacco Use Types Packs/Day Years Used Date Former Smoker Quit: 1984 Smokeless Tobacco: Former User Alcohol Use Drinks/Week oz/Week Comments Yes liquor/beer/wine 14-21 drinks per week Sex Assigned at Date Recorded Not on file Job Start Date Occupation Industry Not on file Not on file Not on file Travel History Travel Start Travel End No recent travel history available. Last Filed Vital Signs Vital Sign Reading Time Taken Blood Pressure 142/72 03/21/2019 11:43 AM [employer] Pulse 103 03/21/2019 11:43 AM [employer] Temperature 37.2 C (98.9 F) 03/21/2019 11:43 AM [employer] Respiratory Rate 18 03/21/2019 11:43 AM [employer] Oxygen Saturation 98% 03/21/2019 11:43 AM [employer] Inhaled Oxygen Concentration 21% 03/20/2019 3:59 PM [employer] Weight 66 kg (145 lb 8.1 oz) 03/21/2019 8:51 A M [employer] Height 175.3 cm (5' 9") 03/15/2019 5:56 AM [employer] Body Mass Index 21.49 03/21/2019 8:51 AM [employer] Plan of Treatment Health Maintenance Due Date Last Done Comments COLON CANCER SCREENING COLONOSCOPY 1950 PNEUMOCOCCAL 65+ LOW/MEDIUM RISK (1 of 2 - PCV13) 2017 Medicare IPPE (WELCOME TO MEDICARE) 02/09/2019 INFLUENZA VACCINE (#1) 2019 Implants Implanted Type Area Geographic Analyst Device Shelf Model / Identifier Expiration Serial / Date Lot Patch Vasc Ignacio 1.65mm 1x6in [id number] - [id number] IMPLANTS Aorta CR [id number] / Implanted: Qty: 1 on 03/15/2019 by Sheldon Hayes MD BARD:PERIPHERAL / VASC [id number] Procedures Procedure Name Priority Date/Time Associated Comments Diagnosis RHYTHM STRIP - SCAN 03/23/2019 8:51 AM [employer] VASCULAR DIAGRAM -SCAN 03/23/2019 8:51 AM [employer] RHYTHM STRIP - SCAN 03/22/2019 2:30 PM [employer] PROTHROMBIN TIME/INR Routine 03/21/2019 4:31 Res ults for this AM [employer] procedure are i n the results section. APTT Routine 03/21/2019 4:31 Results for this AM [employer] procedure are i n the results section. PHOSPHORUS Routine 03/21/2019 4:31 Results for this AM [employer] procedure are i n the results section. MAGNESIUM Routine 03/21/2019 4:31 Results for this AM [employer] procedure are i n the results section. BASIC METABOLIC PANEL Routine 03/21/2019 4:31 Re sults for this (7) AM [employer] procedure are i n the results section. CBC (HEMOGRAM ONLY) Routine 03/21/2019 4:31 Resu lts for this AM [employer] procedure are i n the results section. ECHOCARDIOGRAM REPORT - 03/20/2019 9:10 SCAN PM [employer] XR CHEST 1 VIEW Routine 03/20/2019 3:49 Results for this PORTABLE/BEDSIDE PM [employer] procedure a re in the results section. PROTHROMBIN TIME/INR Routine 03/20/2019 4:12 Res ults for this AM [employer] procedure are i n the results section. APTT Routine 03/20/2019 4:12 Results for this AM [employer] procedure are i n the results section. PHOSPHORUS Routine 03/20/2019 4:12 Results for this AM [employer] procedure are i n the results section. MAGNESIUM Routine 03/20/2019 4:12 Results for this AM [employer] procedure are i n the results section. BASIC METABOLIC PANEL Routine 03/20/2019 4:12 Re sults for this (7) AM [employer] procedure are i n the results section. CBC (HEMOGRAM ONLY) Routine 03/20/2019 4:12 Resu lts for this AM [employer] procedure are i n the results section. 2D ECHO W/ DOPPLER STAT 03/19/2019 4:05 Resul ts for this (CW/PW/COLOR) PM [employer] procedure are in the results section. PROTHROMBIN TIME/INR Routine 03/19/2019 4:23 Res ults for this AM [employer] procedure are i n the results section. APTT Routine 03/19/2019 4:23 Results for this AM [employer] procedure are i n the results section. PHOSPHORUS Routine 03/19/2019 4:23 Results for this AM [employer] procedure are i n the results section. MAGNESIUM Routine 03/19/2019 4:23 Results for this AM [employer] procedure are i n the results section. BASIC METABOLIC PANEL Routine 03/19/2019 4:23 Re sults for this (7) AM [employer] procedure are i n the results section. CBC (HEMOGRAM ONLY) Routine 03/19/2019 4:23 Resu lts for this AM [employer] procedure are i n the results section. TRANSFUSION SERVICE 03/18/2019 5:50 REPORT - SCAN PM [employer] XR CHEST 1 VIEW STAT 03/18/2019 1:38 Results for this PORTABLE/BEDSIDE PM [employer] procedure a re in the results section. XR CHEST 1 VIEW Routine 03/18/2019 9:04 Results for this PORTABLE/BEDSIDE AM [employer] procedure a re in the results section. PROTHROMBIN TIME/INR Routine 03/18/2019 4:19 Res ults for this AM [employer] procedure are i n the results section. APTT Routine 03/18/2019 4:19 Results for this AM [employer] procedure are i n the results section. PHOSPHORUS Routine 03/18/2019 4:19 Results for this AM [employer] procedure are i n the results section. MAGNESIUM Routine 03/18/2019 4:19 Results for this AM [employer] procedure are i n the results section. BASIC METABOLIC PANEL Routine 03/18/2019 4:19 Re sults for this (7) AM [employer] procedure are i n the results section. CBC (HEMOGRAM ONLY) Routine 03/18/2019 4:19 Resu lts for this AM [employer] procedure are i n the results section. PREPARE LEUKO-REDUCED Routine 03/17/2019 11:54 Re sults for this PLATELETS PM [employer] procedure are i n the results section. PREPARE LEUKO-REDUCED Routine 03/17/2019 11:54 Re sults for this RBC PM [employer] procedure are i n the results section. PREPARE LEUKO-REDUCED Routine 03/17/2019 11:54 Re sults for this RBC PM [employer] procedure are i n the results section. TRANSFUSION SERVICE 03/17/2019 6:05 REPORT - SCAN PM [employer] XR CHEST 1 VIEW Routine 03/17/2019 5:16 Results for this PORTABLE/BEDSIDE AM [employer] procedure a re in the results section. PROTHROMBIN TIME/INR Routine 03/17/2019 3:02 Res ults for this AM [employer] procedure are i n the results section. APTT Routine 03/17/2019 3:02 Results for this AM [employer] procedure are i n the results section. PHOSPHORUS Routine 03/17/2019 3:02 Results for this AM [employer] procedure are i n the results section. MAGNESIUM Routine 03/17/2019 3:02 Results for this AM [employer] procedure are i n the results section. BASIC METABOLIC PANEL Routine 03/17/2019 3:02 Re sults for this (7) AM [employer] procedure are i n the results section. CBC (HEMOGRAM ONLY) Routine 03/17/2019 3:02 Resu lts for this AM [employer] procedure are i n the results section. PREPARE LEUKO-REDUCED Routine 03/16/2019 11:54 Re sults for this PLATELETS PM [employer] procedure are i n the results section. PREPARE LEUKO-REDUCED Routine 03/16/2019 11:54 Re sults for this PLATELETS PM [employer] procedure are i n the results section. PREPARE RBC STAT 03/16/2019 11:54 Results for this PM [employer] procedure are i n the results section. TRANSFUSION SERVICE 03/16/2019 6:06 REPORT - SCAN PM [employer] TRANSFUSE LEUKO-REDUCED Routine 03/16/2019 12:45 RED BLOOD CELLS PM [employer] TRANSFUSE LEUKO-REDUCED Routine 03/16/2019 9:41 PLATELETS AM [employer] ECG 12-LEAD Routine 03/16/2019 9:20 AM [employer] Procedure Note - Interface, External Ris In - 03/16/2019 8:35 AM [employer] Ventricular Rate 76 BPM Atrial Rate 76 BPM P-R Interval 122 ms QRS Duration 92 ms Q-T Interval 420 ms QTC Calculation(Bazett) 472 ms P Pierce 49 degrees R Pierce 1 degrees T Pierce -4 degrees Normal sinus rhythm ST elevation, consider early repolarization, pericarditis, or injury T wave abnormality, consider inferior ischemia Abnormal ECG ECG 12-LEAD Routine 03/16/2019 9:20 Results for this AM [employer] procedure are i n the results section. TRANSFUSE Routine 03/16/2019 5:03 LEUKO-REDUCED RED AM [employer] BLOOD CELLS XR CHEST 1 VIEW Routine 03/16/2019 3:52 Results for this PORTABLE/BEDSIDE AM [employer] procedure a re in the results section. BLOOD GAS, ARTERIAL Routine 03/16/2019 3:12 Resu lts for this AM [employer] procedure are i n the results section. PROTHROMBIN TIME/INR Routine 03/16/2019 3:12 Res ults for this AM [employer] procedure are i n the results section. APTT Routine 03/16/2019 3:12 Results for this AM [employer] procedure are i n the results section. PHOSPHORUS Routine 03/16/2019 3:12 Results for this AM [employer] procedure are i n the results section. MAGNESIUM Routine 03/16/2019 3:12 Results for this AM [employer] procedure are i n the results section. BASIC METABOLIC Routine 03/16/2019 3:12 Results for this PANEL (7) AM [employer] procedure are i n the results section. CBC (HEMOGRAM ONLY) Routine 03/16/2019 3:12 Resu lts for this AM [employer] procedure are i n the results section. TRANSFUSE Routine 03/16/2019 1:47 LEUKO-REDUCED AM [employer] PLATELETS CBC W/PLT COUNT & Routine 03/16/2019 12:58 Result s for this AUTO DIFFERENTIAL AM [employer] procedure are in the results section. CBC W/PLT COUNT & Routine 03/16/2019 12:58 Result s for this AUTO DIFFERENTIAL AM [employer] procedure are in the results section. TRANSFUSE Routine 03/15/2019 7:25 LEUKO-REDUCED RED PM [employer] BLOOD CELLS CBC W/PLT COUNT & Routine 03/15/2019 5:34 Result s for this AUTO DIFFERENTIAL PM [employer] procedure are in the results section. CBC W/PLT COUNT & Routine 03/15/2019 5:34 Result s for this AUTO DIFFERENTIAL PM [employer] procedure are in the results section. PROTHROMBIN TIME/INR Routine 03/15/2019 5:34 Res ults for this PM [employer] procedure are i n the results section. APTT Routine 03/15/2019 5:34 Results for this PM [employer] procedure are i n the results section. TRANSFUSE Routine 03/15/2019 3:19 LEUKO-REDUCED PM [employer] PLATELETS HGB/HCT (H&H) - STAT STAT 03/15/2019 2:52 Res ults for this LAB PM [employer] procedure are i n the results section. GLUCOSE-STAT LAB STAT 03/15/2019 2:52 Results for this PM [employer] procedure are i n the results section. POTASSIUM-STAT LAB STAT 03/15/2019 2:52 Resul ts for this PM [employer] procedure are i n the results section. SODIUM NA-STAT LAB STAT 03/15/2019 2:52 Resul ts for this PM [employer] procedure are i n the results section. BLOOD GAS, ARTERIAL STAT 03/15/2019 2:52 Resu lts for this PM [employer] procedure are i n the results section. RRL CRITICAL LABS STAT 03/15/2019 2:52 Result s for this (ABG,NA,K,H&H,GLUCOS PM [employer] procedu re are in E) the results section. TRANSFUSE Routine 03/15/2019 2:51 LEUKO-REDUCED PM [employer] PLATELETS XR CHEST 1 VIEW NATHANIEL 03/15/2019 2:43 Results for this PORTABLE/BEDSIDE PM [employer] procedure a re in the results section. CBC W/PLT COUNT & Routine 03/15/2019 2:42 Result s for this AUTO DIFFERENTIAL PM [employer] procedure are in the results section. CBC W/PLT COUNT & Routine 03/15/2019 2:42 Result s for this AUTO DIFFERENTIAL PM [employer] procedure are in the results section. PROTHROMBIN TIME/INR Routine 03/15/2019 2:42 Res ults for this PM [employer] procedure are i n the results section. APTT Routine 03/15/2019 2:42 Results for this PM [employer] procedure are i n the results section. BASIC METABOLIC Routine 03/15/2019 2:42 Results for this PANEL (7) PM [employer] procedure are i n the results section. PREPARE PLATELETS STAT 03/15/2019 1:33 Result s for this PM [employer] procedure are i n the results section. POCT-ACT Routine 03/15/2019 12:59 Results for this PM [employer] procedure are i n the results section. HGB/HCT (H&H) - STAT STAT 03/15/2019 12:54 Res ults for this LAB PM [employer] procedure are i n the results section. GLUCOSE-STAT LAB STAT 03/15/2019 12:54 Results for this PM [employer] procedure are i n the results section. POTASSIUM-STAT LAB STAT 03/15/2019 12:54 Resul ts for this PM [employer] procedure are i n the results section. SODIUM NA-STAT LAB STAT 03/15/2019 12:54 Resul ts for this PM [employer] procedure are i n the results section. BLOOD GAS, ARTERIAL STAT 03/15/2019 12:54 Resu lts for this PM [employer] procedure are i n the results section. CALCIUM, IONIZED STAT 03/15/2019 12:54 Results for this PM [employer] procedure are i n the results section. RRL CRITICAL LABS STAT 03/15/2019 12:54 Result s for this (ABG,NA,K,H&H,GLUCOS PM [employer] procedu re are in E) the results section. POCT-ACT Routine 03/15/2019 12:18 Results for this PM [employer] procedure are i n the results section. HGB/HCT (H&H) - STAT STAT 03/15/2019 12:11 Res ults for this LAB PM [employer] procedure are i n the results section. GLUCOSE-STAT LAB STAT 03/15/2019 12:11 Results for this PM [employer] procedure are i n the results section. POTASSIUM-STAT LAB STAT 03/15/2019 12:11 Resul ts for this PM [employer] procedure are i n the results section. SODIUM NA-STAT LAB STAT 03/15/2019 12:11 Resul ts for this PM [employer] procedure are i n the results section. BLOOD GAS, ARTERIAL STAT 03/15/2019 12:11 Resu lts for this PM [employer] procedure are i n the results section. RRL CRITICAL LABS STAT 03/15/2019 12:11 Result s for this (ABG,NA,K,H&H,GLUCOS PM [employer] procedu re are in E) the results section. TISSUE EXAM AP Routine 03/15/2019 12:09 Results for this PM [employer] procedure are i n the results section. POCT-ACT Routine 03/15/2019 11:41 Results for this AM [employer] procedure are i n the results section. HGB/HCT (H&H) - STAT STAT 03/15/2019 11:38 Res ults for this LAB AM [employer] procedure are i n the results section. GLUCOSE-STAT LAB STAT 03/15/2019 11:38 Results for this AM [employer] procedure are i n the results section. POTASSIUM-STAT LAB STAT 03/15/2019 11:38 Resul ts for this AM [employer] procedure are i n the results section. SODIUM NA-STAT LAB STAT 03/15/2019 11:38 Resul ts for this AM [employer] procedure are i n the results section. BLOOD GAS, ARTERIAL STAT 03/15/2019 11:38 Resu lts for this AM [employer] procedure are i n the results section. RRL CRITICAL LABS STAT 03/15/2019 11:38 Result s for this (ABG,NA,K,H&H,GLUCOS AM [employer] procedu re are in E) the results section. POCT-ACT Routine 03/15/2019 11:11 Results for this AM [employer] procedure are i n the results section. HGB/HCT (H&H) - STAT STAT 03/15/2019 11:08 Res ults for this LAB AM [employer] procedure are i n the results section. GLUCOSE-STAT LAB STAT 03/15/2019 11:08 Results for this AM [employer] procedure are i n the results section. POTASSIUM-STAT LAB STAT 03/15/2019 11:08 Resul ts for this AM [employer] procedure are i n the results section. SODIUM NA-STAT LAB STAT 03/15/2019 11:08 Resul ts for this AM [employer] procedure are i n the results section. BLOOD GAS, ARTERIAL STAT 03/15/2019 11:08 Resu lts for this AM [employer] procedure are i n the results section. RRL CRITICAL LABS STAT 03/15/2019 11:08 Result s for this (ABG,NA,K,H&H,GLUCOS AM [employer] procedu re are in E) the results section. POCT-ACT Routine 03/15/2019 10:23 Results for this AM [employer] procedure are i n the results section. POCT-ACT Routine 03/15/2019 9:48 Results for this AM [employer] procedure are i n the results section. HGB/HCT (H&H) - STAT STAT 03/15/2019 9:12 Res ults for this LAB AM [employer] procedure are i n the results section. GLUCOSE-STAT LAB STAT 03/15/2019 9:12 Results for this AM [employer] procedure are i n the results section. POTASSIUM-STAT LAB STAT 03/15/2019 9:12 Resul ts for this AM [employer] procedure are i n the results section. SODIUM NA-STAT LAB STAT 03/15/2019 9:12 Resul ts for this AM [employer] procedure are i n the results section. BLOOD GAS, ARTERIAL STAT 03/15/2019 9:12 Resu lts for this AM [employer] procedure are i n the results section. CALCIUM, IONIZED STAT 03/15/2019 9:12 Results for this AM [employer] procedure are i n the results section. RRL CRITICAL LABS STAT 03/15/2019 9:12 Result s for this (ABG,NA,K,H&H,GLUCOS AM [employer] procedu re are in E) the results section. ANESTHESIA BRAYAN Routine 03/15/2019 8:29 Results f or this AM [employer] procedure are i n the results section. HGB/HCT (H&H) - STAT STAT 03/15/2019 7:59 Res ults for this LAB AM [employer] procedure are i n the results section. GLUCOSE-STAT LAB STAT 03/15/2019 7:59 Results for this AM [employer] procedure are i n the results section. POTASSIUM-STAT LAB STAT 03/15/2019 7:59 Resul ts for this AM [employer] procedure are i n the results section. SODIUM NA-STAT LAB STAT 03/15/2019 7:59 Resul ts for this AM RANGELAND MANAGEMENT SPECIALIST procedure are i n the results section. BLOOD GAS, ARTERIAL STAT 03/15/2019 7:59 Resu lts for this AM [employer]ANG[employer]AND MANAGEMENT SPECIALIST procedure are i n the results section. RRL CRITICAL LABS STAT 03/15/2019 7:59 Result s for this (ABG,NA,K,H&H,GLUCOS AM RANGELAND MANAGEMENT SPECIALIST procedu re are in E) the results section. ENDOSCOPIC 03/15/2019 7:30 Coronary artery HARVEST,VEIN AM RANGELAND MANAGEMENT SPECIALIST disease without angina pectoris, unspecified vessel or lesion type, unspecified whether [place] or transplanted heart Case Notes 5 HRS PER FAX Special Needs (NO ICU BED NEEDED) BYPASS,AORTO CORONARY KAROLYN/SVG 03/15/2019 7:30 AM RANGELAND MANAGEMENT SPECIALIST Coronary artery disease without angina pectoris, unspecified vessel or lesion type, unspecified whether [place] or transplanted heart Case Notes 5 HRS PER FAX Special Needs (NO ICU BED NEEDED) CBC W/PLT COUNT & AUTO Routine 03/15/2019 6:29 AM Results for this DIFFERENTIAL [employer]ANGELAND MANAGEMENT SPECIALIST procedure are i n the results section. ABORH, MANUAL Routine 03/15/2019 6:29 AM Results for this [employer]ANG[employer]AND MANAGEMENT SPECIALIST procedure are i n the results section. CBC W/PLT COUNT & AUTO Routine 03/15/2019 6:29 AM Results for this DIFFERENTIAL [employer]ANG[employer] MANAGEMENT SPECIALIST procedure are i n the results section. PLATELET AGGREGATION: Routine 03/15/2019 6:29 AM Results for this FUNCTION SCREEN RANGELAND MANAGEMENT SPECIALIST procedure ar e in the results section. BASIC METABOLIC PANEL Routine 03/15/2019 6:29 AM Results for this (7) RANGELAND MANAGEMENT SPECIALIST procedure are i n the results section. POCT-GLUCOSE METER Routine 03/15/2019 6:09 AM Re sults for this [employer]ANG[employer]AND MANAGEMENT SPECIALIST procedure are i n the results section. TRANSFUSION SERVICE 03/09/2019 6:27 PM REPORT - SCAN RANGELAND MANAGEMENT SPECIALIST XR CHEST 2 VIEWS Routine 03/08/2019 11:29 AM Coronary artery R esults for this [employer] MANAGEMENT SPECIALIST disease involving procedure are in [place] coronary the results artery of [place] section. heart without angina pectoris ECG 12-LEAD Routine 03/08/2019 11:10 AM RANGELAND MANAGEMENT SPECIALIST Procedure Note - Interface, External Ris In - 03/08/2019 5:14 PM RANGELAND MANAGEMENT SPECIALIST Ventricular Rate 56 BPM Atrial Rate 56 BPM P-R Interval 160 ms QRS Duration 98 ms Q-T Interval 456 ms QTC Calculation(Bazett) 440 ms P Pierce 65 degrees R Pierce 37 degrees T Pierce -12 degrees Sinus bradycardia Left ventricular hypertrophy with repolarization abnormality Cannot rule out Inferior inf arct , age undetermined Abnormal ECG No previous ECGs available ECG 12-LEAD Routine 03/08/2019 11:10 AM Coronary artery Resul ts for this [employer] MANAGEMENT SPECIALIST disease involving procedure are in [place] coronary the results artery of [place] section. heart without angina pectoris CBC W/PLT COUNT & AUTO Routine 03/08/2019 11:07 AM Coronary ar leola Results for this DIFFERENTIAL [employer] MANAGEMENT SPECIALIST disease involving procedure are in [place] coronary the results artery of [place] section. heart without angina pectoris TYPE AND SCREEN, Routine 03/08/2019 11:07 AM Coronary artery R esults for this AUTOMATED [employer] MANAGEMENT SPECIALIST disease involving procedure are in [place] coronary the results artery of [place] section. heart without angina pectoris RETICULOCYTE COUNT Routine 03/08/2019 11:07 AM Coronary artery Results for this [employer] MANAGEMENT SPECIALIST disease involving procedure are in [place] coronary the results artery of [place] section. heart without angina pectoris PROTHROMBIN TIME/INR Routine 03/08/2019 11:07 AM Coronary magdalena ry Results for this [employer] MANAGEMENT SPECIALIST disease involving procedure are in [place] coronary the results artery of [place] section. heart without angina pectoris PLATELET AGGREGATION: Routine 03/08/2019 11:07 AM Results for this FUNCTION SCREEN RANG[employer]AND MANAGEMENT SPECIALIST procedure ar e in the results section. LIPASE Routine 03/08/2019 11:07 AM Coronary artery Resul ts for this [employer] MANAGEMENT SPECIALIST disease involving procedure are in [place] coronary the results artery of [place] section. heart without angina pectoris LACTATE DEHYDROGENASE Routine 03/08/2019 11:07 AM Coronary art ana Results for this (LDH) [employer] MANAGEMENT SPECIALIST disease involving procedure are in [place] coronary the results artery of [place] section. heart without angina pectoris HIV-1 ANTIGEN WITH Routine 03/08/2019 11:07 AM Coronary artery Results for this HIV-1/2 ANTIBODY [employer] MANAGEMENT SPECIALIST disease involving proced ure are in [place] coronary the results artery of [place] section. heart without angina pectoris HEPATITIS C ANTIBODY Routine 03/08/2019 11:07 AM Coronary magdalena ry Results for this [employer] MANAGEMENT SPECIALIST disease involving procedure are in [place] coronary the results artery of [place] section. heart without angina pectoris HEPATITIS B PANEL Routine 03/08/2019 11:07 AM Coronary artery Results for this [employer] MANAGEMENT SPECIALIST disease involving procedure are in [place] coronary the results artery of [place] section. heart without angina pectoris HEPATIC FUNCTION PANEL Routine 03/08/2019 11:07 AM Coronary ar leola Results for this [employer] MANAGEMENT SPECIALIST disease involving procedure are in [place] coronary the results artery of [place] section. heart without angina pectoris CBC W/PLT COUNT & AUTO Routine 03/08/2019 11:07 AM Coronary ar leola Results for this DIFFERENTIAL [employer] MANAGEMENT SPECIALIST disease involving procedure are in [place] coronary the results artery of [place] section. heart without angina pectoris BASIC METABOLIC PANEL Routine 03/08/2019 11:07 AM Coronary art ana Results for this (7) [employer] MANAGEMENT SPECIALIST disease involving procedure are in [place] coronary the results artery of [place] section. heart without angina pectoris APTT Routine 03/08/2019 11:07 AM Coronary artery Resul ts for this [employer] MANAGEMENT SPECIALIST disease involving procedure are in [place] coronary the results artery of [place] section. heart without angina pectoris AMYLASE Routine 03/08/2019 11:07 AM Coronary artery Resul ts for this [employer] MANAGEMENT SPECIALIST disease involving procedure are in [place] coronary the results artery of [place] section. heart without angina pectoris after 11/15/2018 Results RHYTHM STRIP - SCAN (03/23/2019 8:51 AM RANGELAND MANAGEMENT SPECIALIST)Only the most recent of2 results within the time period is included. Narrative Performed At This result has an attachment that is no t available. VASCULAR DIAGRAM -SCAN (03/23/2019 8:51 AM RANGELAND MANAGEMENT SPECIALIST) Narrative Performed At This result has an attachment that is no t available. aPTT (03/21/2019 4:31 AM RANGELAND MANAGEMENT SPECIALIST)Only the most recent of9 resultswithin the time period is included. PTT 30.2 22.5 - 36.0 seconds [facility] Specimen Blood Performing Organization Address City/State/Zipcode Phone Number [facility] [address] [place] [address] CENTER Prothrombin time/INR (03/21/2019 4:31 AM RANGELAND MANAGEMENT SPECIALIST)Only the most recent of9 results within the time period is included. Protime 13.9 11.9 - 14.2 seconds [facility] INR 1.1 <=5.9 [facility] Specimen Blood Narrative Performed At Effective 07/07/2018: PT Reference Range [facility] Change New: 11.9-14.2Previous: 11.7-14.7 RECOMMENDED COUMADIN/WARFARIN INR THERAPY RANGES STANDARD DOSE: 2.0-3.0Includes: PROPHYLAXIS for venous thrombosis, systemic embolization; TREATMENT for venous thrombosis and/or pulmonary embolus. HIGH RISK: Target INR is 2.5-3.5 for patients wiht mechanical heart valves. Performing Organization Address City/[facility] Phone Number [address] [address] CENTER CBC (Hemogram only) (03/21/2019 4:31 AM RANGELAND MANAGEMENT SPECIALIST)Only the most recent of6 results within the time period is included. WBC 6.3 3.5 - 10.5 K/L [facility] RBC 3.07 (L) 4.63 - 6.08 M/L [facility] Hemoglobin 9.0 (L) 13.7 - 17.5 GM/DL [facility] Hematocrit 27.4 (L) 40.1 - 51.0 % [facility] MCV 89.3 79.0 - 92.2 fL [facility] MCH 29.3 25.7 - 32.2 pg [facility] MCHC 32.8 32.3 - 36.5 GM/DL [facility] RDW 14.0 11.6 - 14.4 % [facility] Platelets 129 (L) 150 - 450 K/CU MM [facility] MPV 11.9 9.4 - 12.4 fL [facility] nRBC 0 0 - 0 /100 WBC [facility] Specimen Blood Performing Organization Address City/[facility]/Zipcode Phone Number [facility] [address] [place] [address] CENTER Phosphorus (03/21/2019 4:31 AM RANGELAND MANAGEMENT SPECIALIST)Only the most recent of6 resultswithin the time period is included. Phosphorus 2.8 2.3 - 4.7 mg/dL [facility] Specimen Blood Narrative Performed At Car Detailer [facility] Performing Organization Address [facility] Phone Number [address] [address] [place] Magnesium (03/21/2019 4:31 AM RANGELAND MANAGEMENT SPECIALIST)Only the most recent of6 resultswithin the time period is included. Magnesium 1.9 1.6 - 2.6 mg/dL [facility] Specimen Blood Narrative Performed At Car Detailer ID - SERGEY Radha [facility] Performing Organization Address [facility] Phone Number [address] [phone] [place] Basic Metabolic Panel (03/21/2019 4:31 AM RANGELAND MANAGEMENT SPECIALIST)Only the most recent of9 results within the time period is included. Sodium 135 (L) 136 - 145 meq/L [facility] Potassium 3.6 3.5 - 5.1 meq/L [facility] Chloride 101 98 - 107 meq/L [facility] CO2 27 22 - 29 meq/L [facility] BUN 16 7 - 21 mg/dL [facility] Creatinine 0.66 0.57 - 1.25 mg/dL [facility] Glucose 107 (H) 70 - 105 mg/dL [facility] Calcium 7.9 (L) 8.4 - 10.2 mg/dL [facility] EGFR 121Comment: ESTIMATED GFR IS mL/min/1.73 sq m [facility] NOT ACCURATE CREATININE ME DICAL CENTER CLEARANCE IN PREDICTING GLOMERULAR FILTRATION RATE. ESTIMATED GFR IS NOT APPLICABLE FOR DIALYSIS PATIENTS. Specimen Blood Narrative Performed At Car Detailer ID - SERGEY Garcia [facility] MED ICA CENTER Performing Organization Address City/State/Zipcode Phone Number [facility] [address] [place] [address] CENTER ECHOCARDIOGRAM REPORT - SCAN (03/20/2019 9:10 PM RANGELAND MANAGEMENT SPECIALIST) Narrative Performed At This result has an attachment that is no t available. XR chest 1 view portable / bedside (03/20/2019 3:49 PM RANGELAND MANAGEMENT SPECIALIST)Only the most recent of6 resultswithin the time period is included. Specimen Narrative Performed At FINAL REPORT GE RIS Chest one view. Clinical history: Post-op Comparison: Chest radiograph 03/18/2019. Technique: A single frontal view of the chest was obtained. Findings: The patient is status post median sterno mikhail. There is a right IJ central venous catheter with tip in the SVC. There has been interval removal of right chest tube. The cardiomediastinal contours are stabl e. There is persistent airspace opacity in the left upper lobe as well as a right paratracheal opacity. There is discoid a telectasis in the left upper lobe. There is a small left pleural effu leena. There is a small right apical pneumothorax. Signed: Brendan Springer MD Report Verified Date/Time:03/21/2019 04:31:32 Procedure Note Interface, External Ris In - 03/21/2019 4:33 AM RANGELAND MANAGEMENT SPECIALIST FINAL REPORT Chest one view. Clinical history: Post-op Comparison: Chest radiograph 03/18/2019. Technique: A single frontal view of the chest was obtained. Findings: The patient is status post median sterno mikhail. There is a right IJ central venous catheter with tip in the SVC. There has been interval removal of right chest tube. The cardiomediastinal contours are stabl e. There is persistent airspace opacity in the left upper lobe as well as a right paratracheal opacity. There is discoid a telectasis in the left upper lobe. There is a small left pleural effu leena. There is a small right apical pneumothorax. Signed: Brendan Springer MD Report Verified Date/Time: 03/21/2019 0 4:31:32 Performing Organization Address City/State/Zipcode Phone Number GE RIS 2D Echo W/Doppler(CW/PW/Color) (03/19/2019 4:05 PM RANGELAND MANAGEMENT SPECIALIST) Ejection Fraction [facility] ECHO HEAR TLAB [facility] Specimen Narrative Performed At Transthoracic Echocardiography Report (T TE) [facility] ECHO HEARTLAB [facility] Demographics Patient Name LENARD PAYNE Date of Study 03/19/2019 MIL [id number] Gender Male Visit Number [id number] RaceKim own [id number] Room Number 1046 Number Date of Birth1950 Referring Physician Abigail Hodges Age68 year(s) Director Employment Vilma Bond [facility] [email or web address] InterpretingJoPhysician LUCILA Wilburn Fellow Rosendo Flores MD Procedure Type of Study TTE procedure:2DECHO W DOPPLER(CW/PW/COLOR) (STAT) Indications:S/P CABG. Clinical History CAD;HI;BYPASS 03/15/19;HTN;STROKE. Height: 69 inches Weight: 70.31 kg (155 lbs) BSA: 1.85 m^2 BMI: 22.89 kg/m^2 HR: 85 bpm BP: 126/66 mmHg Summary The left ventricle is chamber size (by vol index) is normal (male - LVED vol - 34-74ml/m2). All of the LV segments contract normally . Septal motion is abnormal, likely related to prior cardiac surgery . LVEF by Martinez's method of disk assessment is normal (55-60%) . Normal diastolic function. Rdxs-jy-cdumrcjt mitral regurgitation. Estimated peak systolic PA pressure is cannot be determined due to inadequate TR velocity signal . Signature Findings Rhythm/BPRegular sinus rhythm during the exam. Left Ventricle The LV endocardium is well visualized. Th e left ventricle is chamber size (by vol index) is normal (male - LVED vol - 34-74ml/m2). No rmal LV wall thickness. Al l of the LV segments contract normally . Se ptal motion is abnormal, likely related to prior ca rdiac surgery . LV EF by Martinez's method of disk assessmen t is no rmal (55-60%) . No rmal diastolic function. Left AtriumLA is well visualized. LA size is normal (16-34 ml/m2) . Right VentricleThe right ventricular cavity size is normal . Th ere is mild systolic dysfunction of the right ve ntricle. Right Atrium RA size is normal. Atrial SeptumNormal interatrial septum by available views. Aortic Valve Normal AoV structure. Th ere is no aortic stenosis. Th ere is no aortic regurgitation. Mitral Valve Mild MV leaflet thickening. Mi id-pl-xozmxyjk mitral regurgitation. Tricuspid ValveTV structure is normal. A trace of tricuspid regurgitation. Es timated peak systolic PA pressure is can not be de termined due to inadequate TR velocity s ignal . Pulmonic Valve Mild pulmonary regurgitation. AortaAortic root size (Sinus of Valsalva diameter) i s no rmal. 3.3 cm Pr oximal ascending aorta size normal . 3.3 cm PericardiumNo significant pericardial effusion is visualized. IVC/SVC/PA/PV/PleuralThe estimated RA pressure by IVC dynamics 5-10mmHg . The inferior vena cava size is normal . A left pl eural effusion is noted. Chambers/Structures Left Atrium LA Volume: 60.81 ml LA Area: 19.96 cm^2 LA Vol. Index: 33 ml/m^2 Left Ventricle LVIDd: 5.09 cm LVEDV:119 ml LVIDs: 3.44 cm LVESV:45.86 ml LV Septum Diastolic: 0.95 cm LVEF 2D Cube: 63.6 % LV PW Diastolic: 1.09 cm LVEDV Martinez's:91.99 ml LV FS: 32.4 % LVESV Martinez's:39.09 ml LVEF Martinez's: 57.5 % LVEDVI: 50 ml/m^2 LVESVI: 21 ml/m^2 LVOT Diameter: 2.07 cm LVEF: 61.5 % Right Ventricle RV Diast Dim.: 4.09 cm Aorta Ao Root S of Elda.: 3.37 cmAscending Aorta: 3.33 cm Doppler/Quantitative Measurements Mitral Valve MV Peak E-Wave: 0.91 m/sMV Peak A-Wave: 0.7 m/s E/A Ratio : 1.3 Peak Gradient: 3.31 mmHg Deceleration Time: 161 msec MV Oseas. Peak: Tissue Doppler E' Lateral Velocity: 0.08 m/s E/E': 10.8 Aortic Valve Peak Velocity: 1.38 m/sMean Velocity: 0.99 m/s Peak Gradient: 7.67 mmHg Mean Gradient: 4.42 mmHg AV Area (continuity): 2.96 cm^2 AV VTI: 21.31 cm AV DVI: 0.88 LVOT Peak Velocity: 1.36 m/s Peak Gradient: 7.4 mmHg Mean Velocity: 0.78 m/s Mean Gradient: 2.95 mmHg LVOT Diameter: 2.07 cmLVOT VTI: 18.76 cm LVOT Area: 3.37 cm^2LVOT SV:63.1 ml LVOT CO: 5.36 l/min LVOT CI: 2.9 l/min/m^2 Procedure Note Interface, External Ris In - 03/20/2019 2:11 PM RANGELAND MANAGEMENT SPECIALIST Transthoracic Echocardiography Report (TTE) Demographics Patient Name LENARD PAYNE Date of Study 03/19/2019 MIL Gende r Male Visit Number [id number] Race Unknown Room Number 1046 Number Date of 1950 Refer ring Physician Abigail Hodges Age 68 year(s) Sonog rapher Vilma Bond RDCS [facility] Macy Rolon MD Fellow Rosendo Flores MD Procedure Type of Study TTE procedure:2DECHO W DOPPLE R(CW/PW/COLOR) (STAT) Indications:S/P CABG. Clinical History CAD;HI;BYPASS 03/15/19;HTN;STROKE. Height: 69 inches Weight: 70.31 kg (155 lbs) BSA: 1.85 m^2 BMI: 22.89 kg/m^2 HR: 85 bpm BP: 126/66 mmHg Summary The left ventricle is chamber size (by vol index) is normal (male - LVED vol - 34-74ml/m2). All of the LV segmen ts contract normally . Septal motion is abnormal, likely related to p rior cardiac surgery . LVEF by Martinez's method of disk assessment is normal (55-60%) . Normal diastolic function. Usye-zj-xxboztlm mitral regurgitation. Estimated peak systolic PA pressure is cannot be determined due to inadequate TR velocity signal . Signature Findings Rhythm/BP Regular sinus rh ythm during the exam. Left Ventricle The LV endocardi um is well visualized. The left ventric le is chamber size (by vol index) is normal (male - LVED vol - 34-74ml/m2). Normal LV wall t hickness. All of the LV se gments contract normally . Septal motion is abnormal, likely related to prior cardiac surgery . LVEF by Martinez' s method of disk assessment is normal (55-60%) . Normal diastolic function. Left Atrium LA is well visua lized. LA size is alisa l (16-34 ml/m2) . Right Ventricle The right ventri cular cavity size is normal . There is mild sy stolic dysfunction of the right ventricle. Right Atrium RA size is alisa l. Atrial Septum Normal interatri al septum by available views. Aortic Valve Normal AoV struc ture. There is no aort ic stenosis. There is no aort ic regurgitation. Mitral Valve Mild MV leaflet thickening. Luci-xo-gppwkvuw mitral regurgitation. Tricuspid Valve TV structure is normal. A trace of tricu spid regurgitation. Estimated peak s ystolic PA pressure is cannot be determined due t o inadequate TR velocity signal . Pulmonic Valve Mild pulmonary r egurgitation. Aorta Aortic root size (Sinus of Valsalva diameter) is normal. 3.3 cm Proximal ascendi ng aorta size normal . 3.3 cm Pericardium No significant p ericardial effusion is visualized. IVC/SVC/PA/PV/Pleural The estimated RA pressure by IVC dynamics 5-10mmHg . The inferior v sadie cava size is normal . A left pleural effusion is noted. Chambers/Structures Left Atrium LA Volume: 60.81 ml LA Area: 19.96 cm^2 LA Vol. Index: 33 ml/m^2 Left Ventricle LVIDd: 5.09 cm LVEDV:119 ml LVIDs: 3.44 cm LVESV:45.86 ml LV Septum Diastolic: 0.95 cm LVEF 2D Cube: 63.6 % LV PW Diastolic: 1.09 cm LVEDV Martinez's:91.99 ml LV FS: 32.4 % LVESV Martinez's:39.09 ml LVEF Martinez's: 57.5 % LVEDVI: 50 ml/m^2 LVESVI: 21 ml/m^2 LVOT Diameter: 2.07 cm LVEF: 61.5 % Right Ventricle RV Diast Dim.: 4.09 cm Aorta Ao Root S of Elda.: 3.37 cm Ascending Aorta: 3.33 cm Doppler/Quantitative Measurements Mitral Valve MV Peak E-Wave: 0.91 m/s MV Peak A-Wave: 0.7 m/s E/A Ratio: 1.3 Peak Gradient: 3.31 mmHg Deceleration Time: 161 msec MV Oseas. Peak: Tissue Doppler E' Lateral Velocity: 0.08 m/s E/E': 10.8 Aortic Valve Peak Velocity: 1.38 m/s Mean Velocity: 0.99 m/s Peak Gradient: 7.67 mmHg Mean Gradient: 4.42 mmHg AV Area (continuity): 2.96 cm^2 AV VTI: 21.31 cm AV DVI: 0.88 LVOT Peak Velocity: 1.36 m/s Pea k Gradient: 7.4 mmHg Mean Velocity: 0.78 m/s Jennifer n Gradient: 2.95 mmHg LVOT Diameter: 2.07 cm LVO T VTI: 18.76 cm LVOT Area: 3.37 cm^2 LVO T SV:63.1 ml LVOT CO: 5.36 l/min LVO T CI: 2.9 l/min/m^2 Performing Organization Address [facility] [place] Phone Number [facility] ECHO HEARTLAB [facility] TRANSFUSION SERVICE REPORT - SCAN (03/18/2019 5:50 PM RANGELAND MANAGEMENT SPECIALIST)Only the most recent of4 resultswithin the time period is included. Narrative Performed At This result has an attachment that is no t available. Prepare Leuko-Red PLT (03/17/2019 11:54 PM RANGELAND MANAGEMENT SPECIALIST)Only the most recent of3 results within the time period is included. Unit ABO B Pos [place] UNIT NUMBER [id number] SAFETRACE [place] Status TX_TIMEINCHART [facility] [place] Blood Bank Product PLATELETS [place]AF[place] PRODUCT CODE [id number] SAFETRACE [place] Specimen Blood Performing Organization Address [facility] Phone Number SAFETRACE [place] Prepare Leuko-Red RBC (03/17/2019 11:54 PM RANGELAND MANAGEMENT SPECIALIST)Only the most recent of2 results within the time period is included. CROSSMATCH COMPATIBLE SAFETRACE TX Unit ABO O Pos [place]AFET[place]ACE TX UNIT NUMBER [id number] SAFETRACE TX Status TX_TIMEINCHART [facility]AF[place] Blood Bank Product RED BLOOD CELLS [place]AF[place] PRODUCT CODE [id number] [place] Specimen Other Performing Organization Address [facility] [place] Phone Number [employer]AF[place] Prepare RBC (03/16/2019 11:54 PM RANGELAND MANAGEMENT SPECIALIST) CROSSMATCH COMPATIBLE SAFETRACE TX Unit ABO O Pos SAFETRACE TX UNIT NUMBER [id number] SAFETRACE TX Status RETURNED FROM ISSUE [facility]AFETRACE TX Blood Bank Product RED BLOOD CELLS SAFETRACE TX PRODUCT CODE [id number] SAFETRACE [place] CROSSMATCH COMPATIBLE SAFETRACE TX Unit ABO O Pos SAFETRACE TX UNIT NUMBER [id number] SAFETRACE TX Status TX_TIMEINCHART [facility]AFETRACE [place] Blood Bank Product RED BLOOD CELLS SAFETRACE TX PRODUCT CODE [id number] SAFETRACE TX CROSSMATCH COMPATIBLE SAFETRACE TX Unit ABO O Pos SAFETRACE TX UNIT NUMBER [id number] SAFETRACE TX Status RETURNED FROM ISSUE SAFETRACE TX Blood Bank Product RED BLOOD CELLS SAFETRACE TX PRODUCT CODE [id number] SAFET[place]ACE [place] CROSSMATCH COMPATIBLE SAFETRACE TX Unit ABO O Pos SAFETRACE TX UNIT NUMBER [id number] [place]AFET[place]ACE [place] Status RETURNED FROM ISSUE SAFETRACE [place] Blood Bank Product RED BLOOD CELLS [place]AF[place] PRODUCT CODE [id number] [place]AFET[place]ACE [place] Performing Organization Address City/State/Zipcode Phone Number [place] Transfuse Leuko-Red RBC (03/16/2019 12:45 PM RANGELAND MANAGEMENT SPECIALIST)Only the most recent of6 resultswithin the time period is included.Transfuse Leuko-Red PLT (03/16/2019 9:41 AM RANGELAND MANAGEMENT SPECIALIST)Only the most recent of6 resultswithin the time period is included. ECG 12 lead (03/16/2019 9:20 AM RANGELAND MANAGEMENT SPECIALIST)Only the most recent of2 resultswithin the time period is included. Specimen Narrative Performed At Ventricular Rate 76 BPM GE MUSE Atrial Rate 76 BPM P-R Interval 122 ms QRS Duration 92 ms Q-T Interval 420 ms QTC Calculation(Bazett) 472 ms P Pierce 49 degrees R Pierce 1 degrees T Pierce -4 degrees Normal sinus rhythm ST elevation, consider early repolarizat ion, pericarditis, or injury T wave abnormality, consider inferior is chemia Prolonged QT Abnormal ECG When compared with ECG of 08-Mar-2019 ST elevation inanterior leads is more pr ominent on the current EKG. Confirmed by Onel MCELROY, BLUE ([id number]) on 03/16/2019 4:2 4:25 PM Procedure Note Interface, External Ris In - 03/16/2019 4:24 PM RANGELAND MANAGEMENT SPECIALIST Ventricular Rate 76 BPM Atrial Rate 76 BPM P-R Interval 122 ms QRS Duration 92 ms Q-T Interval 420 ms QTC Calculation(Bazett) 472 ms P Pierce 49 degrees R Pierce 1 degrees T Pierce -4 degrees Normal sinus rhythm ST elevation, consider early repolarizat ion, pericarditis, or injury T wave abnormality, consider inferior is chemia Prolonged QT Abnormal ECG When compared with ECG of 08-Mar-2019 ST elevation inanterior leads is more pr ominent on the current EKG. Confirmed by Onel MCELROY BASANT ([id number]) o n 03/16/2019 4:24:25 PM Performing Organization Address City/State/Zipcode Phone Number RAY ROSA Blood gas, arterial (03/16/2019 3:12 AM RANGELAND MANAGEMENT SPECIALIST)Only the most recent of8 results within the time period is included. pH, Arterial 7.38 7.35 - 7.45 [facility] pCO2, Arterial 38 35 - 45 mmHg [facility] pO2, Arterial 196 (H) 80 - 90 mmHg [facility] O2 Sat, Arterial 99.3 (H) 96.0 - 97.0 % [facility] HCO3, Arterial 21 21 - 29 mmol/L [facility] Base Excess, Arterial -3.1 (L) -2.0 - 3.0 mmol/L [facility] Patient Temperature 38.3 C [facility] FIO2 60.0 % [facility] Specimen Blood, Arterial Narrative Performed At Daily ABG with morning labs while patient is [facility] intubated. Performing Organization Address City/[facility] Phone Number [facility] [address] [place] [address] CENTER CBC with platelet count + automated diff (03/16/2019 12:58 AM RANGELAND MANAGEMENT SPECIALIST)Only the most recent of5 resultswithin the time period is included. WBC 5.9 3.5 - 10.5 K/L [facility] RBC 2.47 (L) 4.63 - 6.08 M/L [facility] Hemoglobin 7.4 (L) 13.7 - 17.5 GM/DL [facility] Hematocrit 22.6 (L) 40.1 - 51.0 % [facility] MCV 91.5 79.0 - 92.2 fL [facility] MCH 30.0 25.7 - 32.[address] [facility] MCHC 32.7 32.3 - 36.5 GM/DL [facility] RDW 14.0 11.6 - 14.4 % [facility] Platelets 153 150 - 450 K/CU MM [facility] MPV 11.2 9.4 - 12.4 fL [facility] nRBC 0 0 - 0 /[address] [facility] % Neutros 82 % [facility] % Lymphs 7 % [facility] % Monos 10 % [facility] % Eos 0 % [facility] % Baso 1 % [facility] # Neutros 4.78 1.78 - 5.38 K/L [facility] # Lymphs 0.39 (L) 1.32 - 3.57 K/L [facility] # Monos 0.61 0.30 - 0.82 K/L [facility] # Eos 0.02 (L) 0.04 - 0.54 K/L [facility] # Baso 0.04 0.01 - 0.08 K/L [facility] Immature Granulocytes-Relative 0 0 - 1 % C HI [facility] Specimen Blood Performing Organization Address City/State/Zipcode Phone Number [facility] [address] [place] [address] CENTER Potassium-Stat Lab (03/15/2019 2:52 PM RANGELAND MANAGEMENT SPECIALIST)Only the most recent of7 results within the time period is included. Potassium 4.2 3.6 - 5.5 meq/L [facility] Specimen Blood, Arterial Performing Organization Address [facility] [place] Phone Number [address] [address] [place] Sodium Na-Stat Lab (03/15/2019 2:52 PM RANGELAND MANAGEMENT SPECIALIST)Only the most recent of7 results within the time period is included. Sodium 142 135 - 148 meq/L [facility] Specimen Blood, Arterial Performing Organization Address [facility] [place] Phone Number [address] [address] [place] Glucose-Stat Lab (03/15/2019 2:52 PM RANGELAND MANAGEMENT SPECIALIST)Only the most recent of7 resultswithin the time period is included. Glucose 123 (H) 70 - 110 mg/dL [facility] Specimen Blood, Arterial Performing Organization Address [facility] [place] Phone Number [address] [address] [place] HGB/HCT (H&H)-Stat Lab (03/15/2019 2:52 PM RANGELAND MANAGEMENT SPECIALIST)Only the most recent of7 resultswithin the time period is included. Hemoglobin 8.7 (L) 13.0 - 16.8 g/dL [facility] Hematocrit 26.0 (L) 40.0 - 50.0 % [facility] Specimen Blood, Arterial Performing Organization Address [facility] [place] Phone Number [address] [address] [place] Prepare PLT (03/15/2019 1:33 PM RANGELAND MANAGEMENT SPECIALIST) Unit ABO O Pos SAFETRACE TX UNIT NUMBER [id number] SAFETRACE TX Status RETURNED FROM ISSUE SAFETRACE TX Blood Bank Product PLATELETS SAFETRACE TX PRODUCT CODE [id number] SAFETRACE TX Unit ABO O Pos SAFETRACE TX UNIT NUMBER [id number] SAFETRACE TX Status RETURNED FROM ISSUE SAFETRACE TX Blood Bank Product PLATELETS SAFETRACE TX PRODUCT CODE [id number] SAFETRACE TX Performing Organization Address City/[facility]/Zipcode Phone Number SAFETRACE TX POC ACTIVATED CLOTTING TIME (03/15/2019 12:59 PM RANGELAND MANAGEMENT SPECIALIST)Only the most recent of6 resultswithin the time period is included. Activated Clotting Time 109Comment: Reference sec CH I [facility] Range: 74-137 seconds, MEDICAL CENTER Baseline/TESTED AT [facility] [address] [place] [id number] Specimen Blood Performing Organization Address City/[facility]/Zipcode Phone Number [address] [phone] CENTER Calcium, Ionized (03/15/2019 12:54 PM RANGELAND MANAGEMENT SPECIALIST)Only the most recent of2 resultswithin the time period is included. Calcium, Ion 1.14 1.12 - 1.27 mmol/L [facility] pH, Blood 7.32 [facility] Specimen Blood Performing Organization Address City/[facility] Centercode Phone Number [address] [phone] CENTER Tissue Exam (03/15/2019 12:09 PM RANGELAND MANAGEMENT SPECIALIST) Case Report Surgical Pathology Report Case: [id number] [facility] Authorizing Provider:Sheldon Freeman, Collected: 03/15/2019 1209 [facility] Received:03/16/2019 0858 [employer] Pathologist: Ángel Haji MD Specimen:Plaque, Rig ht Coronary Artery Plaque DIAGNOSIS ARTERY, RIGHT CORONARY, ENDARTERECTOMY: [facility] CALCIFIC ATHEROSCLEROTIC PLAQUE [facility] Signing Pathologist Direct Phone Line: CPT Code(s) 86989; [id number] 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 ER GROSS DESCRIPTION Received in formalin labeled C [facility] with the patient's name, [facility] accession number and "right coronary artery plaque" is a 7.0 cm in length x 0.3 cm in diameter flores-yellow tubular piece of focally calcified plaque. [employer] Specialist sections are submitted in A1 following decalcification/ PA/pl MICROSCOPIC DESCRIPTION Performed [facility] Fredi [facility] ER Specimen Tissue Performing Organization Address City/State/Zipcode Phone Number [facility] [address] [place] [address] CENTER BRAYAN (03/15/2019 8:29 AM RANGELAND MANAGEMENT SPECIALIST) Narrative Performed At Loren Honeycutt MD 03/15/20191 :14 PM BRAYAN Date: 03/15/2019 8:29 AM Sex: Male Locatio n: OR Requesting Physician: Sheldon Hayes MD Examiner: Aayush Rueda MD Shaw, Michael Faping IntubatedSe dated Patient screened for esoph disease: Yes Insertion: easy Probe Type: multiplane Modalities: CWD, CFM, 2D and PWD Pre Intervention Summary: Aorta: no aneu rysm, no dissection, no mobile plaques AV: trileaflet morphology, no aortic rimma nosis, no aortic regurgitation LV: normal chamber size , mild LVH, normal systolic fu nction (EF >55% by qualitative assessment), no RWMA, no thr ombus MV: normal morphology, mild mitral regurgitation (VC < 0.2, ERO 0.04), no mitral stenosis LA: no JIMI thrombus, normal size and fun ction PV: limited visualization, but trace PI observed RV: normal sized chamber, normal functio n, no thrombus TV: normal morphology, no tricuspid regu rgitation RA: no thrombus No PFO by color dopper flow and bubble s tudy All findings communicated to surgical te am. Post Intervention Summary:No aortic dissection LVEF >55%, no RWMA RV function normal No pericardial effusion Procedure Note Loren Honeycutt MD - 03/15/2019 8:29 AM RANGELAND MANAGEMENT SPECIALIST BRAYAN Date: 03/15/2019 8:29 AM Sex: Male Locatio n: OR Requesting Physician: Sheldon Hayes MD Examiner: Aayush Rueda MD Shaw, Michael Faping Intubated Sedate d Patient screened for esoph disease: Yes Insertion: easy Probe Type: multiplane Modalities: CWD, CFM, 2D and PWD Pre Intervention Summary: Aorta: no aneu rysm, no dissection, no mobile plaques AV: trileaflet morphology, no aortic rimma nosis, no aortic regurgitation LV: normal chamber size , mild LVH, norm al systolic function (EF >55% by qualitative assessment), no RWMA, no thrombus MV: normal morphology, mild mitral regur gitation (VC <0.2, ERO 0.04), no mitral stenosis LA: no JIMI thrombus, normal size and fun ction PV: limited visualization, but trace PI observed RV: normal sized chamber, normal functio n, no thrombus TV: normal morphology, no tricuspid regu rgitation RA: no thrombus No PFO by color dopper flow and bubble s tudy All findings communicated to surgical te am. Post Intervention Summary: No aortic di ssection LVEF >55%, no RWMA RV function normal No pericardial effusion Platelet Aggregation: Function Screen (03/15/2019 6:29 AM RANGELAND MANAGEMENT SPECIALIST)Only the most recent of2 resultswithin the time period is included. Pathologist: Cynthia John MD [facility] (electronic signature) [facility] Platelets 106 (L) 150 - 450 K/CU [facility] ADP 71 62 - 100 % [facility] Platelet Rich Plasma 186 (L) 200 - 300 k/cu [facility] Plt. Function Screen Normal aggregation [facility] Interpretation results with ADP. No [facility] evidence of platelet dysfunction or P2Y12 inhibitor effect. Specimen Blood Narrative Performed At Platelet Function Screen results may be [facility] falsely low with platelet counts <75,000/cu mm. Car Detailer ID - [id number] Car Detailer ID - [id number] Car Detailer ID - [id number] Performing Organization Address City/State/Zipcode Phone Number [facility] [address] [place] [address] CENTER ABORH, manual (03/15/2019 6:29 AM RANGELAND MANAGEMENT SPECIALIST) ABO Grouping O [facility] Rh Factor POS [facility] Specimen Blood Performing Organization Address City/State/Zipcode Phone Number [facility] [address] [place], [place] [phone] POC-Glucose meter (03/15/2019 6:09 AM RANGELAND MANAGEMENT SPECIALIST) POC-Glucose Meter 105Comment: : TESTED AT 70 - 110 mg/dL [facility] [address] [place] [address] [place], [address]: Car Detailer/Brewing Director ID = [id number] for ISAAK JASSO Specimen Blood Performing Organization Address City/[facility]/Zipcode Phone Number [facility] [address], [place] [phone] CENTER XR chest 2 views (03/08/2019 11:29 AM RANGELAND MANAGEMENT SPECIALIST) Specimen Narrative Performed At FINAL REPORT GE RIS TECHNIQUE: Frontal and lateral chest rad iographs dated 03/08/2019. CLINICAL HISTORY: Surgery COMPARISON STUDY: None FINDINGS: Lungs are clear. No pleural effusion or pneumothorax. Cardiomediastinal silhouette is normal i n size. No pulmonary edema. Mild degenerative changes are seen in th e spine. IMPRESSION: Clear lungs. Signed: Elsa Nascimento MD Report Verified Date/Time:03/08/2019 12:16:29 Reading Location: [facility] Mammo Reading Shanell m Procedure Note Interface, External Ris In - 03/08/2019 12:18 PM RANGELAND MANAGEMENT SPECIALIST FINAL REPORT TECHNIQUE: Frontal and lateral chest rad iographs dated 03/08/2019. CLINICAL HISTORY: Surgery COMPARISON STUDY: None FINDINGS: Lungs are clear. No pleural effusion or pneumothorax. Cardiomediastinal silhouette is normal i n size. No pulmonary edema. Mild degenerative changes are seen in th e spine. IMPRESSION: Clear lungs. Signed: Elsa Nascimento MD Report Verified Date/Time: 03/08/2019 1 2:16:29 Reading Location: [facility] Mammo Reading Shanell m Performing Organization Address City/State/Zipcode Phone Number GE RIS Type and screen, automated (03/08/2019 11:07 AM RANGELAND MANAGEMENT SPECIALIST) ABO/RH AUTOMATED (BEAKER) O POSITIVE [facility] Ab Scrn NEGATIVE [facility] Specimen Blood Performing Organization Address [facility] Cent[facility]ode Phone Number [address] [address] HIV-1 Antigen with HIV-1/2 Antibody (03/08/2019 11:07 AM RANGELAND MANAGEMENT SPECIALIST) HIV-1 Antigen with HIV 1&[address] [facility] Antibody [facility] Specimen Blood Narrative Performed At Car Detailer ID - [facility] Performing Organization Address [facility] Centercode Phone Number [address] [address] CENTER Hepatitis B Panel (03/08/2019 11:07 AM RANGELAND MANAGEMENT SPECIALIST) Hep B Core Total Ab Nonreactive Nonreactive [facility] Hep B S Ab <8.0 <8.0 mIU/mL [facility] HBsAg Screen Nonreactive Nonreactive [facility] Specimen Blood Narrative Performed At Car Detailer ID - [facility] Car Detailer ID - BS Car Detailer ID - BS Performing Organization Address City/[facility]/Zipcode Phone Number [address] [address] CENTER Hepatitis C antibody (03/08/2019 11:07 AM RANGELAND MANAGEMENT SPECIALIST) Hepatitis C Ab Nonreactive Nonreactive [facility] Specimen Blood Narrative Performed At Car Detailer ID - [facility] Performing Organization Address City/[facility]/Zipcode Phone Number [address] [address] CENTER Reticulocyte count (03/08/2019 11:07 AM RANGELAND MANAGEMENT SPECIALIST) % Retic 1.7 0.5 - 1.8 % [facility] Specimen Blood Narrative Performed At Car Detailer ID - [id number] [facility] Performing Organization Address City/[facility] Centercode Phone Number [address] [address] CENTER Lipase (03/08/2019 11:07 AM RANGELAND MANAGEMENT SPECIALIST) Lipase <4 (L) 8 - 78 U/L [facility] Specimen Blood Narrative Performed At Car Detailer ID - KAY Wilson [facility] Performing Organization Address City/[facility] Centercode Phone Number [address] [address] CENTER Lactate dehydrogenase (LDH) (03/08/2019 11:07 AM RANGELAND MANAGEMENT SPECIALIST) LDH 217 125 - 220 U/L [facility] Specimen Blood Narrative Performed At Car Detailer ID - KAY Wilson [facility] Performing Organization Address City/[facility] Centercoma Phone Number [address] [address] CENTER Amylase (03/08/2019 11:07 AM RANGELAND MANAGEMENT SPECIALIST) Amylase 55 25 - 125 U/L [facility] Specimen Blood Narrative Performed At Car Detailer ID - KAY Wilson [facility] Performing Organization Address City/[facility] Centercode Phone Number [address] [address] [place] Hepatic function panel (03/08/2019 11:07 AM RANGELAND MANAGEMENT SPECIALIST) Protein, Total 6.5 6.0 - 8.3 gm/dL [facility] Albumin 4.1 3.5 - 5.0 g/dL [facility] Total Bilirubin 0.6 0.2 - 1.2 mg/dL [facility] Bilirubin, Direct 0.4 0.1 - 0.5 mg/dL [facility] Alkaline Phosphatase 65 40 - 150 U/L [facility] AST 17 5 - 34 U/L [facility] ALT 13 6 - 55 U/L [facility] Specimen Blood Narrative Performed At Car Detailer ID - KAY Wilson [facility] Performing Organization Address City/State/Zipcode Phone Number [facility] [address] [place] [address] CENTER after 11/15/2018 Insurance Payer Benefit Plan / Subscriber ID Type Phone Address Group [employer] - MEDICARE AET[employer] MEDICARE HMO xxxxxxxx [id number] [place] [address] Advance Directives For more information, please contact:[facility] [place], [place] [phone] Code Status Date Activated Date Inactivated Comments Full Code 03/15/2019 5:41 AM 03/21/2019 3:36 PM This code status was determined by: Patient
--- OUTSIDE RECORDS SUMMARY | 2019-11-16 21:54 | XMS REPORT | Continuity of Care Document ---
:1950 Author Organization [facility] t Address [address] [place] [address] Care Team Providers Name Role Phone Toshia Montanez Primary Care Physician Dominic GALLEGOS, R Attending Clinician Unavailable Doctor Unassigned, Name Attending Clinician Unavailable DAVID HERNANDEZ Attending Clinician Unavailable David Hernandez MD Attending Clinician Dariusz Sethi PA-C Attending Clinician Ernesto Joseph MD Attending Clinician Toshia Montanez Attending Clinician DAVID HERNANDEZ Admitting Clinician Unavailable Payers Payer Name Policy Type Policy Number Effective Date Expiration Date S apple AETNA - xxxxxxxx [facility] MEDICARE MGD - Medical CAREAETNA Center MEDICARE HMO POS [id number], [place] [address] Problems Condition Condition Condition Status Onset Resolution Last Treating Co mments Source Name Details Category Date Date Treatment Clinician Date Urinary Urinary Disease Active [facility] retention retention 2-07 [facility] - 00:00: Medical 00 Center Former Former Disease Active [facility] smoker smoker 2-04 [facility] - (quit (quit 00:00: Medical 1984) 00 Center GERD GERD Disease Active [facility] (gastroeso (gastroeso 2-04 Barbara kes - phageal phageal 00:00: Medical reflux reflux 00 Center disease) disease) CVA CVA Disease Active 2019- [facility] (cerebral (cerebral 2-04 [facility] - vascular vascular 00:00: Medica l accident) accident) 00 Cent er with with residual residual short term short term memory memory problems problems and and generalize generalize d weakness d weakness (2015) (2015) ETOH abuse ETOH abuse Disease Active [facility] (liquor/be (liquor/be 2-04 Barbara kes - er/wine er/wine 00:00: Medical 14 14- 00 Center drinks per drinks per week, "3 week, "3 tequila tequila drinks a drinks a day - day - stopped 8 stopped 8 days ago") days ago") H/O H/O Disease Active [facility] Squamous Squamous 2-04 [facility] - cell cell 00:00: Medical carcinoma carcinoma 00 Cent er S/P skin S/P skin cancer cancer excision excision HLD HLD Disease Active [facility] (hyperlipi (hyperlipi 2-04 Barbara kes - demia) demia) 00:00: Medical 00 Center Thrombocyt Thrombocyt Disease Active [facility] openia (on openia (on 2-04 Barbara kes - Plavix) Plavix) 00:00: Medical 00 Center Acute Acute Disease Active [facility] blood loss blood loss 2-04 Barbara kes - anemia anemia 00:00: Medical 00 Center Coronary Coronary Disease Active [facility] artery artery 1-24 [facility] - disease disease 00:00: Medical s/p CABG x s/p CABG x 00 Ce nter 3 3 (CHARLENE-RCA, (CHARLENE-RCA, CURRAN-LAD, CURRAN-LAD, SVG-ramus) SVG-ramus) by by Dr. Abigail Hernandez 03/15/2019 03/15/2019 H/O STEMI H/O STEMI Disease Active 2018-[address] [facility] [address] (ST (ST 2-06 [facility] - elevation elevation 00:00: Medi elis myocardial myocardial 00 Ce nter infarction infarction ) (HCC) ) (HCC) ( ( 9) 9) HTN HTN Disease Active 2018-[address] [facility] St (hypertens (hypertens 2-06 [facility] - ion), ion), 00:00: Medical chronic chronic 00 Center arterial arterial History of Past Illness Condition Condition Condition Status Onset Resolution Last Treating Co mments Source Name Details Category Date Date Treatment Clinician Date Hypothermi Hypothermi Disease Resolve 2019-03-16 2019-03-[address] [facility] St a a d 2- 00:00:00 15:15:07 [facility] - associated associated 00:00: Me dical with with 00 Center surgery surgery Acute Acute Disease Resolve 2019-03-16 2019-03-16 [facility] respirator respirator d 2- 00:00:00 15:15:01 [facility] - y y 00:00: Medical insufficie insufficie 00 Ce nter ncy ncy Allergies, Adverse Reactions, Alerts Allergy Allergy Status Severity Reaction(s) Onset Inactive Treating Comm ents Source Name Type Date Date Clinician Other Propensi Active Nausea And Allergic [facility] ty to Vomiting 03-03 to pre op [facility] - adverse 00:00: medicatio Medica l reaction 00 n, Center s unknown name. Will bring name on dos Family History Family Member Diagnosis Comments Start Date Stop Date Source Natural father Heart disease [facility] Natural mother Stroke [facility] Social History Social Habit Start Date Stop Date Quantity Comments Source History of Current smoker [facility] tobacco use Medical Cente r Sex Assigned At [facility] Alcohol Comment 2019-03-03 2019-03-03 liquor/beer/wine [facility] - 00:00:00 00:00:00 14-21 drinks per [facility] Center week Smoking Status Start Date Stop Date Source Former smoker 2019-03-15 00:00:00 2019-03-15 00:00:00 [facility] Medications Ordered Filled Start Stop Current Ordering Indication Dosage Frequency Signature Comments Components Source Medication Medication Date Date Medication? Clinician (SIG) Name Name amiodarone No 200mg QD Take 1 [facility] (PACERONE) 2-11 02-10 tablet [facility] - 200 MG 00:00: 23:59 (200 mg Medical tablet 00 :00 total) by Center mouth daily. aspirin 81 No 81mg QD Take [address] [facility] MG chewable 03-22 tablet (81 L ukes - tablet 00:00: 23:59 mg total) Medic al 00 :00 by mouth Center daily. tamsulosin 2019- No .4mg QD Take [address] [facility] (FLOMAX) 03-22 capsule [facility] - 0.4 mg Cap 00:00: 23:59 (0.4 mg Med ical 24 hr 00 :00 total) by Center capsule mouth daily for 30 days. tiZANidine 2019- No 4mg Take [address] (ZANAFLEX) 03-21 by mouth Luke s - 4 MG tablet 12:08: 00:00 every 6 Me dical 34 :00 (six) Center hours as needed. diphenhydrA 2019- No 50mg Take [address] [facility] MINE 03-21 by mouth [facility] - (BENADRYL) 12:08: 00:00 every Medic al 25 mg 34 :00 night as Center tablet needed for Sleep. clopidogrel 2019- No 75mg QD Take [address] (PLAVIX) 75 03-21- by mouth Meli es - mg tablet 12:02: 00:00 daily. Medic al 00 :00 [facility] isosorbide 2019- No 30mg QD Take [address] [facility] mononitrate 03-2110 by mouth Meli es - (IMDUR) 30 12:02: 00:00 daily. Medi elis MG 24 hr 00 :00 Center tablet butalb/acet 2019- No Take by [facility] aminophen/c 03-21 mouth. [facility] - affeine 11:45: 00:00 Medical (ESGIC 20 :00 Center ORAL) aspirin 81 2019- No 81mg QD Take [address] MG EC 03-21 by mouth [facility] - tablet 11:44: 00:00 daily. Medical 52 :00 [facility] atorvastati 2019- No 80mg QD Take [address] [facility] n (LIPITOR) 03-21-10 by mouth Meli es - 80 MG 11:44: 00:00 daily. Medical tablet 52 :00 [facility] meloxicam 2019- No 7.5mg QD Take 7.[address] (MOBIC) 7.5 2-10 02-10 mg by [facility] - MG tablet 11:44: 00:00 mouth Medica l 52 :00 daily. Center pantoprazol 2019-2019- No 20mg QD Take [address] [facility] e 2-10 02-10 by mouth [facility] - (PROTONIX) 11:44: 00:00 daily. Medi elis 20 MG 52 :00 Center tablet nitroglycer 2020- No .4mg Place 0.[address] [facility] in 2-10 02-10 mg under [facility] - (NITROSTAT) 11:44: 00:00 the tongue Medical 0.4 MG SL 52 :00 every 5 Center tablet (five) minutes as needed for Chest pain Put 1 pill under tongue every 5min as needed for chest pain.No more than 3 doses in 15min.Call 911 if pain is unrelieved 5min after 1st dose . atorvastati 2019-2019- No 40mg QD Take 0.[address] n (LIPITOR) 2-10 05-10 tablets Luke s - 80 MG 00:00: 23:59 (40 mg Medical tablet 00 :00 total) by Center mouth daily for 90 days. pantoprazol 2019-0 2020- No 40mg QD Take [address] e 2-10 05-10 tablets [facility] - (PROTONIX) 00:00: 23:59 (40 mg Medi elis 20 MG 00 :00 total) by Center tablet mouth daily for 90 days. metoprolol 2019-0 2020- No 12.5mg Q.5D Take 0.[address] (LOPRESSOR) 2-10 05-10 tablets Luke s - 25 MG 00:00: 23:59 (12.5 mg Medical tablet 00 :00 total) by Center mouth 2 (two) times daily for 90 days. apixaban 2019-0 2020- No 5mg Q.5D Take [address] (ELIQUIS) 5 2-10 03-11 tablet (5 Barbara kes - mg Tab 00:00: 23:59 mg total) Medic al tablet 00 :00 by mouth 2 Center (two) times daily for 30 days. melatonin 2020-0 Yes QD Take by [facility] 10 mg Cap -23 mouth [facility] - 11:03: nightly Medical 46 1-2 tabs . Center sertraline 2020-0 Yes 100mg QD Take [address] (ZOLOFT) 1-23 mg by kes - 100 MG 10:30: mouth Medical tablet 23 daily. [facility]ia HYDROcodone Yes 1{tbl} Take [address] -acetaminop 1-23 tablet by Meli brooks (NORCO 10:30: mouth Medica l 10-325) 23 every 6 Center 10-325 mg (six) per tablet hours as needed for Pain. Vital Signs Vital Name Observation Time Observation Value Comments Source Systolic blood 2019-03-21 11:43:00 142 mm[Hg] [facility] Diastolic blood 2019-03-21 11:43:00 72 mm[Hg] [facility] Heart rate 2019-03-21 11:43:00 103 /min [facility] Body temperature 2019-03-21 11:43:00 37.17 Ashley [facility] Respiratory rate 2019-03-21 11:43:00 18 /min [facility] Oxygen saturation in 2019-03-21 11:43:00 98 /min [facility] Arterial blood by Medical Ce nter Pulse oximetry Body weight Measured 2019-03-21 08:51:00 66 kg [facility] BMI 2019-03-21 08:51:00 21.49 kg/m2 [facility] Body height 2019-03-15 05:56:00 175.3 cm [facility] Procedures Procedure Date / Time Performing Clinician Source Performed RHYTHM STRIP - SCAN 2019-03-23 08:51:34 Provider, Default [facility] VASCULAR DIAGRAM -SCAN 2019-03-23 08:51:28 Provider, Default [facility] RHYTHM STRIP - SCAN 2019-03-22 14:30:51 Provider, Default [facility] CBC (HEMOGRAM ONLY) 2019-03-21 04:31:00 Radha Colmenares [facility] BASIC METABOLIC PANEL (7) 2019-03-21 04:31:00 Radha Colmenares [facility] MAGNESIUM 2019-03-21 04:31:00 Radha Colmenares [facility] PHOSPHORUS 2019-03-21 04:31:00 Dedra [facility] APTT 2019-03-21 04:31:00 Dedra [facility] PROTHROMBIN TIME/INR 2019-03-21 04:31:00 Dedra [facility] ECHOCARDIOGRAM REPORT - 2019-03-20 21:10:20 Provider, [facility] SCAN Scanning [facility] XR CHEST 1 VIEW 2019-03-20 15:49:00 Dedra [facility] PORTABLE/BEDSIDE Medical Center CBC (HEMOGRAM ONLY) 2019-03-20 04:12:00 Dedra [facility] BASIC METABOLIC PANEL (7) 2019-03-20 04:12:00 Dedra [facility] MAGNESIUM 2019-03-20 04:12:00 Dedra [facility] PHOSPHORUS 2019-03-20 04:12:00 Dedra [facility] APTT 2019-03-20 04:12:00 Dedra [facility] PROTHROMBIN TIME/INR 2019-03-20 04:12:00 Dedra [facility] 2D ECHO W/ DOPPLER 2019-03-19 16:05:52 Dedra [facility] (CW/PW/COLOR) [facility] CBC (HEMOGRAM ONLY) 2019-03-19 04:23:00 Dedra [facility] BASIC METABOLIC PANEL (7) 2019-03-19 04:23:00 Dedra [facility] MAGNESIUM 2019-03-19 04:23:00 Dedra [facility] PHOSPHORUS 2019-03-19 04:23:00 Dedra [facility] APTT 2019-03-19 04:23:00 Dedra [facility] PROTHROMBIN TIME/INR 2019-03-19 04:23:00 Dedra [facility] TRANSFUSION SERVICE REPORT 2019-03-18 17:50:18 Provider, [facility] - - SCAN [facility] XR CHEST 1 VIEW 2019-03-18 13:38:00 Sheldon Hernandez [facility] PORTABLE/BEDSIDE [facility] XR CHEST 1 VIEW 2019-03-18 09:04:00 Sheldon Mccord [facility] PORTABLE/BEDSIDE [facility] CBC (HEMOGRAM ONLY) 2019-03-18 04:19:00 Dedra [facility] BASIC METABOLIC PANEL (7) 2019-03-18 04:19:00 Dedra Radham[facility] MAGNESIUM 2019-03-18 04:19:00 Dedra [facility] PHOSPHORUS 2019-03-18 04:19:00 Dedra [facility] APTT 2019-03-18 04:19:00 Dedra [facility] PROTHROMBIN TIME/INR 2019-03-18 04:19:00 Dedra [facility] PREPARE LEUKO-REDUCED RBC 2019-03-17 23:54:00 Brenard Tyler [facility] PREPARE LEUKO-REDUCED 2019-03-17 23:54:00 Hardik Sethi [facility] TRANSFUSION SERVICE REPORT 2019-03-17 18:05:25 Poli Gonzalez [facility] XR CHEST 1 VIEW 2019-03-17 05:16:00 Sheldon Mccord [facility] PORTABLE/BEDSIDE [facility] CBC (HEMOGRAM ONLY) 2019-03-17 03:02:00 Dedra [facility] BASIC METABOLIC PANEL (7) 2019-03-17 03:02:00 Dedra Radha [facility] MAGNESIUM 2019-03-17 03:02:00 Dedra [facility] PHOSPHORUS 2019-03-17 03:02:00 Dedra [facility] APTT 2019-03-17 03:02:00 Dedra [facility] PROTHROMBIN TIME/INR 2019-03-17 03:02:00 Dedra [facility] PREPARE RBC 2019-03-16 23:54:00 Abigail Sheldon [facility] PREPARE LEUKO-REDUCED 2019-03-16 23:54:[address] [facility] S t [facility] PLATELETS [facility] TRANSFUSION SERVICE REPORT 2019-03-16 18:06:18 ProviderPoli [facility] - SCAN [facility] TRANSFUSE LEUKO-REDUCED 2019-03-16 12:45:42 Hardik Sethi [facility] RED BLOOD CELLS [facility] TRANSFUSE LEUKO-REDUCED 2019-03-16 09:41:24 Hardik Sethi [facility] ECG 12-LEAD 2019-03-16 09:20:27 Unknown, Hl7 [facility] TRANSFUSE LEUKO-REDUCED 2019-03-16 05:03:40 Bernard Tyler [facility] RED BLOOD CELLS [facility] XR CHEST 1 VIEW 2019-03-16 03:52:00 Sheldon Mccord [facility] PORTABLE/BEDSIDE Medical Center CBC (HEMOGRAM ONLY) 2019-03-16 03:12:00 Dedra [facility] BASIC METABOLIC PANEL (7) 2019-03-16 03:12:00 Dedra Radha [facility] MAGNESIUM 2019-03-16 03:12:00 Dedra [facility] PHOSPHORUS 2019-03-16 03:12:00 Dedra [facility] APTT 2019-03-16 03:12:00 Dedra [facility] PROTHROMBIN TIME/INR 2019-03-16 03:12:00 Dedra [facility] BLOOD GAS, ARTERIAL 2019-03-16 03:12:00 Dedra [facility] TRANSFUSE LEUKO-REDUCED 2019-03-16 01:47:20 Bernard Tyler [facility] PLATELETS [facility] CBC W/PLT COUNT & AUTO 2019-03-16 00:58:00 Bernard Tyler [facility] DIFFERENTIAL [facility] TRANSFUSE LEUKO-REDUCED 2019-03-15 19:25:35 Sheldon Mccord [facility] RED BLOOD CELLS [facility] APTT 2019-03-15 17:34:00 Suri Sheldon Wood [facility] PROTHROMBIN TIME/INR 2019-03-15 17:34:00 Roles [facility] CBC W/PLT COUNT & AUTO 2019-03-15 17:34:00 Sheldon Mccord [facility] TRANSFUSE LEUKO-REDUCED 2019-03-15 15:19:40 Sheldon Mccord [facility] BLOOD GAS, ARTERIAL 2019-03-15 14:52:00 Dedra [facility] SODIUM NA-STAT LAB 2019-03-15 14:52:00 Dedra [facility] POTASSIUM-STAT LAB 2019-03-15 14:52:00 Dedra [facility] GLUCOSE-STAT LAB 2019-03-15 14:52:00 Dedra [facility] HGB/HCT (H&H) - STAT LAB 2019-03-15 14:52:00 Dedra [facility] TRANSFUSE LEUKO-REDUCED 2019-03-15 14:51:11 Suri [facility] XR CHEST 1 VIEW 2019-03-15 14:43:00 Suri [facility] PORTABLE/BEDSIDE [facility] BASIC METABOLIC PANEL (7) 2019-03-15 14:42:00 Sheldon Mccord [facility] APTT 2019-03-15 14:42:00 Sheldon Mccord [facility] PROTHROMBIN TIME/INR 2019-03-15 14:42:00 RoSheldon saldana [facility] CBC W/PLT COUNT & AUTO 2019-03-15 14:42:00 Sheldon Mccord [facility] PREPARE PLATELETS 2019-03-15 13:33:00 Abigail [facility] POCT-ACT 2019-03-15 12:59:00 Abigail [facility] CALCIUM, IONIZED 2019-03-15 12:54:09 Loren Honeycutt [facility] BLOOD GAS, ARTERIAL 2019-03-15 12:54:09 Tangela [facility] SODIUM NA-STAT LAB 2019-03-15 12:54:09 Tangela [facility] POTASSIUM-STAT LAB 2019-03-15 12:54:09 Tangela [facility] GLUCOSE-STAT LAB 2019-03-15 12:54:09 Honeycutt, [facility] HGB/HCT (H&H) - STAT LAB 2019-03-15 12:54:09 Honeycutt [facility] POCT-ACT 2019-03-15 12:18:00 [facility] BLOOD [facility]AS, ARTERIAL 2019-03-15 12:11:38 [facility] 2019-03-15 12:11:38 [facility]OT[facility] 2019-03-15 12:11:38 [facility] GLU[facility]SE-STAT LAB 2019-03-15 12:11:38 [facility] HGB/HCT (H&H) - STAT LAB 2019-03-15 12:11:38 [facility] TISSUE EXAM 2019-03-15 12:09:00 [facility] POCT-ACT 2019-03-15 11:41:00 [facility] BLOOD GAS, ARTERIAL 2019-03-15 11:38:36 [facility] SODIUM NA-STAT LAB 2019-03-15 11:38:36 [facility] POTASSIUM-STAT LAB 2019-03-15 11:38:36 [facility] GLUCOSE-STAT LAB 2019-03-15 11:38:36 Narendraelli, [facility] HGB/HCT (H&H) - STAT LAB 2019-03-15 11:38:36 Abigail [facility] POCT-ACT 2019-03-15 11:11:00 [facility] BLOOD GAS, ARTERIAL 2019-03-15 11:08:57 Abigail [facility] SODIUM NA-STAT LAB 2019-03-15 11:08:57 [facility] POTASSIUM-STAT LAB 2019-03-15 11:08:57 [facility] GLU[facility]SE-STAT LAB 2019-03-15 11:08:57 [facility]H&H) - STAT LAB 2019-03-15 11:08:57 [facility] POCT-ACT 2019-03-15 10:23:00 [facility] POCT-ACT 2019-03-15 09:48:00 [facility] CALCIUM, IONIZED 2019-03-15 09:12:11 [facility] BLOOD [facility], ARTERIAL 2019-03-15 09:12:11 [facility] NA-STAT LAB 2019-03-15 09:12:11 [facility] POTASSIUM-STAT LAB 2019-03-15 09:12:11 [facility] GLUCOSE-STAT LAB 2019-03-15 09:12:11 [facility] H[facility] (H&H) - STAT LAB 2019-03-15 09:12:11 Honeycutt [facility] ANESTHESIA BRAYAN 2019-03-15 08:29:37 [facility] BLOOD GAS, ARTERIAL 2019-03-15 07:59:10 Tangela [facility] SODIUM NA-STAT LAB 2019-03-15 07:59:10 [facility] POTASSIUM-STAT LAB 2019-03-15 07:59:10 [facility] GLUCOSE-STAT LAB 2019-03-15 07:59:10 Honeycutt [facility] HGB/HCT (H&H) - STAT LAB 2019-03-15 07:59:10 Tangela [facility] BYPASS,AORTO CORONARY 2019-03-15 07:30:00 Abigail [facility] KAROLYN/SVG [facility] ENDOSCOPIC HARVEST,VEIN 2019-03-15 07:30:00 Abigail [facility] BASIC METABOLIC PANEL (7) 2019-03-15 06:29:00 Marquita [facility] PLATELET AGGREGATION: 2019-03-15 06:29:00 Juárez [facility] FUNCTION SCREEN [facility] ABORH, MANUAL 2019-03-15 06:29:00 Marquita [facility] CBC W/PLT COUNT & AUTO 2019-03-15 06:29:00 Marquita [facility] POCT-GLUCOSE METER 2019-03-15 06:09:00 Abigail [facility] TRANSFUSION SERVICE REPORT 2019-03-09 18:27:50 Provider, [facility] - - SCAN Scanning [facility] XR CHEST 2 VIEWS 2019-03-08 11:29:00 Juárez, [facility] ECG 12-LEAD 2019-03-08 11:10:59 Unknown, Hl7 Doctor [facility] AMYLASE 2019-03-08 11:07:00 Juárez [facility] APTT 2019-03-08 11:07:00 Marquita [facility] BASIC METABOLIC PANEL (7) 2019-03-08 11:07:00 Juárez, [facility] HEPATIC FUNCTION PANEL 2019-03-08 11:07:00 Juárez, [facility] HEPATITIS B PANEL 2019-03-08 11:07:00 Juárez, [facility] HEPATITIS C ANTIBODY 2019-03-08 11:07:00 Juárez, [facility] HIV-1 ANTIGEN WITH HIV-1/2 2019-03-08 11:07:00 Juárez, [facility] ANTIBODY [facility] LACTATE DEHYDROGENASE 2019-03-08 11:07:00 Juárez, [facility] LIPASE 2019-03-08 11:07:00 Juárez, [facility] PLATELET AGGREGATION: 2019-03-08 11:07:00 Juárez, [facility] FUNCTION SCREEN [facility] PROTHROMBIN TIME/INR 2019-03-08 11:07:00 Juárez, [facility] RETICULOCYTE COUNT 2019-03-08 11:07:00 Juárez, [facility] TYPE AND SCREEN, AUTOMATED 2019-03-08 11:07:00 Juárez, [facility] CBC W/PLT COUNT & AUTO 2019-03-08 11:07:00 Juárez, [facility] DIFFERENTIAL [facility] Plan of Care Planned Activity Planned Date Details Comments Source Future Scheduled 2019-10-11 INFLUENZA VACCINE (#1) [facility] Test 00:00:00 [code = INFLUENZA Medical Ce nter VACCINE (#1)] Future Scheduled 2019-02-09 Medicare IPPE (WELCOME [facility] - Test 00:00:00 TO MEDICARE) [code = Medical Center Medicare IPPE (WELCOME TO MEDICARE)] Future Scheduled 2017 PNEUMOCOCCAL [address]+ [facility] - Test 00:00:00 LOW/MEDIUM RISK (1 of [facility] 2 - PCV13) [code = PNEUMOCOCCAL 65+ LOW/MEDIUM RISK (1 of 2 - PCV13)] Future Scheduled 1950 Screening for [facility] Meli es - Test 00:00:00 malignant neoplasm of [facility] colon (procedure) [code = 504192317] Encounters Start End Encounter Admission Attending Care Care Encounter Source Date/Time Date/Time Type Type Clinicians Facility Department ID 2019-03-31 2019-03-31 Orders MISTY [id number] 00:00:00 00:00:00 Only Unassigned, CARL [id number] [place] [id number] 2019-03-07 2019-03-07 Orders MISTY [id number] 00:00:00 00:00:00 Only Unassigned, CARL [id number] [place] [id number] Results Test Description Test Time Test Comments Results Result Comments Source Tissue Exam 2019-03-21 16:54:00 Test Item Value Reference Range Interpretation Comme nts Case Report (test code = 104) Surgical Pathology Report Case: [id number] Authorizing Provider: Sheldon Hernandez, Collected: 03/15/2019 1209 Ordering Location: [facility] Received: 03/16/2019 0858 [facility]IOPERATIVE SERVICES Pathologist: Ángel Haji MD Specimen: Plaque, Right Coronary Artery Plaque DIAGNOSIS (test code = 3220) n4nnaBVvIGGwz5oeBJVjpNZdNoKqMnMzMaAaNu pc rJGtMLiepiTpBQwbj3JqX2DkGiUrUHkuftJdZQHa QclawkhkZVCaLSK2ftQjOAQzMLbkCSPtSSoiJx8w aROyoIxeVeXpHKOed4xrylDTxztanMz0b6shLIVr JiS6uAQzJPhkM9lbvxXtjUFsBZNmIUi4iB35PVJc lJ4fyRZoTMuncqZgDTzdgmQuftLzBod8JOLbR9eg LTWcLOKmS7GnEJ4uFPFxFae2SZD9JDB5rVrvd0I1 mWRelNVvuYcgWjVlErPvBTQUa4ZbBYk2gYfgX6Nr EPWaVnB4zXAoULYnCJxmVGImCKUwziH2rU86NBoh prK5nVCtr2Udy12pb542iF9qaMJzTIB9HFOmDBPd lLFtSBKtLDB6KSRgkDKjY6o6KaZdiJIxL1M0KwXz wATjQ2Q4VrFxmMPyJ8Z5JuQugAGpDLLcrOGcTu1q tNZkjCLkff7zuh59TXS1k4LdtIgaVIC4OIE0CqEc Cn2xkYUkERFfAA2mDhZosFWtQGWawg56cHazHCqq jeWodI1jXgSjAMUicJXlWESmGH7ioFRdLLOynR4c oofuMPIiRnBnxuxpSVBlsRtfraTjQw4flTmbOEA4 PRgqJ5ntnX2mQrT0HYlfH9oeoY6mEIa2BPjxaXF1 KLEksI0hLM6vmyezx3odByThOQ1muoxjw1agEkWi CO6kkgl9d4eqAwFpGB1ymkgex2eaMaQfVLkuAUXq optxPHYfu2AghbvoHGYbd1XuQ8YkaIjbI83zhTsf T87sWEJptIwebM5umXapwE4hJuLhGaInRJukbYxg bGFpblxmMFxmczIwXHBsYWluXGYxXGZzMjAgQVJU KHXJAHCHANlEDTNIN9TFLxYQKZmaTW3YWHKONHJN L8NRECk6HOFmkbSGNFjDPEWZHmDMTGmCAj4VW5hC Li8HQUWaBMxGTHELBIDugi55DUK3YpVup2R1HFS9 PORzVIKsg7uxIESuvFHkBtLnIxMrWqWgEnicaUUi AZRaXfLwh2vmm991lNHhj6vmSTEgSkU8xXAoGFDc nQXgY791ZZQlQCcdu6nxk9AjZJZkrECha9I6GGTA hqkvgTu9wOdiZ69vx9Z1JlatY3xkNNPfSEDtZ3Yc NM6iSVRxMav8MWK4DSU3RXVhGMXxE6UgQL9tACDc yCIsCPz5a7vsfIknQHZvYVK8r9ooJDwkenZsLN2j zt4npAg2b8dfboOnRDTtYTLxnJPMOJAeM3CmwDfg Ec6qiQq0mAreObzjQJF5Rik1YK8egm61afz6yThm OSKvwrypPkC1VGdjUQYxcurqEHy3WKcmBWGulHH2 PGNoqLEoX3ItYGVcXL8byjt9PDO0JZijHWWkKyI6 HYCyjAGcZRVrqHmnZLamg735AUM4LsEfAY6uZ4Pv q3R1sC8plFYjJZFonCPnTpMjIYJgyk1lwAUrZHbr c2QaKQM1obJ3yVBdoYLaWBSdFuN5TSmlTZ5lbe41 QTHuRNZ4wb4zyPZwqOstngXdyWJlAWqhA2HgXMLp y831KGZpT4MkPDAex5P5xoOfWpKqHCYifAI4zdB2 JQXbGW8vsresq7olTEjxEQhrGSJmsdY9jkW8IJOb bZRgR8HloV9jTQZuSR2mxkavv0oaCMQ1FRptOWAc NUE2YaDtDTCkd2Jzhov0PpYhz9ShqFImPRhnD26z v637JLKdmwClY3flxEYblxpleLHbyvrcDFoykvJ9 BNVaRMltvocdVIEeRXlkV8vsLjZxFIBgqEakVGvt j5ZjCVDoZGHzToYngIGrYQLtAww1DUUrtXRhFTZb RfOnA1kdgpvvHjHBXGNyd5zrS5epfAXDzQBgW3Fu IJlraeGnZYmcJOhySLP4ACZ2Zc66VcF2EBJiyy95 CPT Code(s) (test code = 3357) j1splJRsAIVpmDAwWpMeMPRxNEOih7qmXCTi bGFu LwTlZlYuMiTxIgueiRHaXOUpNaDfj7kaa746rBUr p1jcZKWuOpV2iVBySDFenPMhE135o2jmb9hbbjKv wSU3UUAlBKS5KLwqpwTblgM0TTyskMZuMgF6WRjb eeAvWVqtdvQrmaDpFvx1RZLaP417ITO7pMcpu5zk DDJ7ECIjOAEgAoMhLx1saDVdQ922LEYeFFDLEHHl dIi6RTAyztRugbYroDQFi623A623y5hbPMPukbOm gDpYhzlhy0jzO201BGUhwLUswfGsKuBlMZSzeDHi tNB5DOZwZF9sosrmSrBlAI7akmjxDzNyEB9xrjm8 XoAvTR4tbddrGlFkQPjzQDIfomjgLRYvp7Srxfbp NP2nE1Kny3Y9aI1toPNhGDPwyPKdHxKjLTMyto9i fGThUEkda1ZjTTM2izM7eUWtsFRsMNEqUN07Wsgk v3LtGcoyZZD1STIkbzGgq0Usy9ukVoGqhsJmJ9vh A8NqLYPyUHVxXTPuSpAxwvHsz4Tyy5RqqQTeyLs5 p9xcRWIcUHIkgGmbw3buDIP4QSKvT7U3jNTzo1gx ENyuRKWjaPF1gixvHDheXKXgglK8xhbjQAjyIUAi lYA0mxrlXOfoDCCgWfS2zwykBFzfVMRrVQW1PQqo u483FDN4ZXzsNlhiMIdhJVMpwyQshwJqwCmwNVNd UZSnUOvrXVAuIPfiIUDfOMQsMtQfwGacjFdlvB5v IzPvPoUuCXzsKV5kMJUsQ2pdnKCtYBItBSUlA5me FrAmcM1skWxeIGatjvZwWIi3HoG8HgP1KYHqAOyz YXJ9 CLINICAL HISTORY (test code = 3356) x5yktVBwSPFqdNMmDkRmYGQfJDDgr9s cZGVmbGFu CdZkQyDfOlRmOgyogPHtENZnPuFbq2wmr924mZTo w1beKBNbOsV7tXCwEXInjOFzP308WDTvNLdrh0rm b0ItVNRezRRwr8G7OMSLpkqzySm0pKkzM63pb4K0 BspxD8jfBAPsTZUeD5JxTB7cDWRhQxo1KGQ8EGE5 DWJeCXKdK9RtLQ7hXQVizFZcJXe4d6ocoHweBLFi PNU1k5ykYGybvrRlYG2acd5wrZt3v6wpujUcRHXt XWUazEFVHRYdU0WynTmpIr5gpZm7nCdkMcvqZPP3 Oss8QD3bjc14srd8rZbvLCDpvcfxEgJ2RXjpRRFw vlkmETh5OAunEBHpmYnzRJrpUQUjqfmmPZwaAKNr nNzeRHmpBSIgUtbgOXljDUTwOAY4RGniv570GHV2 ILnyk3nqo9ylhBYaEye0YFDcVmBpCvrpEHufb4Nk p4ryQYUgrq6fXRO3fEMveQhcx4J7zEGsPFYmhYCg zrNsNANrInA3IFiaKP3iom70TAUyKVY6lh6nnWWx lQrsngDkxIVhCHslS5YnERFrl450DBGmS3HrYRKj q3S4oaMrHuCfNENyfWS9dsU5GOZzQCr6eYLpoxZ6 vsVoxXHuJ1axqG85VeTaoYEtY9VziM99EnCoqNLa B5TbyP17OqSnzBUsK5GhoT40EoUjqKFiYNZcbRAi Os0lrRCllWOlw5KqqTBlCWyqU48au916QAPbxdCx W1jnbZHqxtanhHRujcmyOQmbpkR1OGMhTHKiINtx XGYxXGZzMjBcbGFuZzEwMzNcaGljaFxmMVxkYmNo AXXyTCqpX0ysJuNkKyHnCESKqrTisRVjhNDltp5k mCD1IHNYz2XpvkKvzVScfcOwpcukVRseLYKhBBC6 iHYbi7X1KWVjB4vbRCHwBWG3i9Ory7yvATU1 SPECIMEN SOURCE (test code = 3377) r7ymiMVwRGJckUPdGlUzGBBzNJGgv8bu ZGVmbGFu QrKrYpBzDqGjWkxtsXFcJTRoBjSfi2hsk150dCDx m0ryYZTsPkO7zLXeDONgaCJsJ049x6zrb7jrpeMd lNJ2ICIdKNJ2AQddjaIhhpF9MGshnONrWdK4VOmf omEnPCulclPokaZkPba8LOFbD020NMH4tNejz9yu TRQ4SKPiVCHzFfJhQh0rfDKcJ113BCMzHGGBWQLc eTu6APIczpRaenKywHUIf121D976z2zyVVOcpsCw qFzKmxabr0dnK032QQUswLJkzyKoDbHsCRKykRTl sCZ0YCQrPA2tsrkhCpKcVU1wnzlrPeLhTM2jogy5 ZjToQT0iedouVtEqZLneKLCqtmpiXDDop2Dajdig GJ6nN8Ygm1T9kI2nlFSsJNXgzGJaDfZsCCPgar6t uQNkHAkfp6ErLRN3wrV3aHGaiDDpGWUnCN04Xqlg k2WgKuibDKU7NXQkhnYla7Luo8dhZxMzvpDsY9fw J5BfEKSzTVTyJVBzOdOmrvMir0Azc9MieCIiiKz8 p8ytIOQzHSFamQqit0pjFUA4CLUuP4Z8yZGsw4tx AXawVRQveCT9jdnvXBooGELezaQ3tdvzHTjfOLXq wHF0jakuZNphEWAfLnJ1yttfSQlwUAOsECM6WCby n354CSC7OOkmMyejAXerUKCtopMuceDjjRiqSOQl QQHtFRgnQXSnEMikHJIsJOJoJkEcwNpscKxcuN2w FvBpOhEdWEuzCB3yMWTsL7zcbXLsGUToHSUxE5qk TbSnjV1ytWbsTYigudFgIJAhKRH3NSigJXN0 GROSS DESCRIPTION (test code = 3366) p1ecwNNcXEPdtMAzTiGpMFLvQWBsi5 lcZGVmbGFu [file] CA8tyEZqpCNoyI== MICROSCOPIC DESCRIPTION (test code = u9tbgZQdGYSylRXgEzGqNVMsHVJip4 [place] [address]) JbJtJuNrAaAnPwkmbVXuNPAxXlIdd3jwd580vOIx g5qaVYOpXzY2fUPpIANijLDjS657q1pra9vadzWn jMN9JALxDKS4ZDegraWrbrP7HYhyaMHfJgI2PCrh sgIiSVzudfHnqrOkVjp9XHNcG105MPQ6cAxxc9mu NES6TOLwXJGcDlRgHv6yxXViK862RWOxFDMGUJLu nFh4QORclpUusiAtzFNQa554J689g8uiUQVafrNw zWtPwhozv5fhA311BNYhoZTvgbYnHrGtZIUhmPXk aRN9FXOaYF2jrouqPrYcNK2zfkloLjYgUG2awht4 PkAzLL9sxvphCwAzQVroZPScxxyvOZFar3Oewgem PT3zB7Vzl1O6yB3jsFArVHKgfEQeKvZcKLEtmo8k zUScKXgec9XsVNS4sfH3cOVpyPDxYKQrVS30Nwno j1SbDacxJJX8MZDcmjTaf0Usg0thQxElepDzK8vv T8EfXXPkGGUvBYWqDrJoqkRkk1Cuu4JbyBPbhAy8 a8yhKONsOXFurLubb9mwAYS4LYOjN7H0mGTkd2iu QXdpZIOcwSA6hwilGDdaEMNmqvO7gwysKKnaJBWh hDX9rnbrTAxoETZvIoV9yzabWIxzRMCdNQJ4ZCjf x446VLL2ZQjjTurfQTemSVSetkCcfeSzmHldPAEs PBSjAFckWHXjLUqxCYDyBZFbCmPdxGnzbVvqaG8j AtSvRpUdRJduJD1fFCJlY1jrhYGbVKFgFSGzU4dg HiPonR1fsWqrFArkihTnJNLxvzUonb9uZBjdFJC2 [facility] CenterTISSUE [id number] 16:54:00Surgical Pathology Report Case: [id number] Authorizing Provider: Sheldon Hernandez, Collected: 03/15/2019 1209 OrderingLocation: [facility] Received: 03/16/2019 0858 PERIOPERATIVE SERVICES Pathologist: Ángel Haji MD Specimen: Plaque, Right Coronary Artery Plaque ARTERY, RIGHT CORONARY, ENDARTERECTOMY:CALCIFIC ATHEROSCLEROTIC PLAQUE Signing Pathologist Direct Phone Line: [phone] signed by Ángel Haji MD on 03/21/2019 at 4:54 [id number]; [id number] diagnosis: Coronary artery disease without angina pectorisPlaqueReceived in formalin labeled with the patient's name, accession number and "right coronary artery plaque" is a 7.0 cm in length x 0.3 cm in diameter flores-yellow tubular piece of focally calcified plaque. Harpooner sections are submitted in E0wqhaocbcs decalcification/ PA/pl PerformedBasic Metabolic [id number] 05:34:00 Test Item Value Reference Range Interpretation Comments Sodium (test code = 135 meq/L 136-145 L 2951-2) Potassium (test code = 3.6 meq/L 3.5-5.1 2823-3) Chloride (test code = 101 meq/L 98-107 2075-0) CO2 (test code = 27 meq/L 22-29 2027-9) BUN (test code = 16 mg/dL 7-21 3094-0) Creatinine (test code 0.66 mg/dL 0.57-1.25 = 2160-0) Glucose (test code = 107 mg/dL 70-105 H 2345-7) Calcium (test code = 7.9 mg/dL 8.4-10.2 L 81978-4) EGFR (test code = 121 mL/min/1.73 [place] [address]-1) NOT ACCURATE CREATININE CLEARANCE IN PREDICTING GLOMERULAR FILTRATION RATE . ESTIMATED GFR I S NOT APPLICABLE FOR DIALYSIS PATIENTS. MARY ELLEN (test code = MARY ELLEN) [employer] P[employer] ID - SERGEY W Lab Interpretation Abnormal (test code = 93778-0) [facility] CenterBASIC METABOLIC [id number] 05:34:00 Test Item Value Reference Range Interpretation Comments SODIUM (BEAKER) 135 meq/L 136-145 L (test code = 381) POTASSIUM (BEAKER) 3.6 meq/L 3.5-5.1 (test code = 379) CHLORIDE (BEAKER) 101 meq/L 98-107 (test code = 382) CO2 (BEAKER) (test 27 meq/L 22-29 code = 355) BLOOD UREA NITROGEN 16 mg/dL 7-21 (BEAKER) (test code = 354) CREATININE (BEAKER) 0.66 mg/dL 0.57-1.25 (test code = 358) GLUCOSE RANDOM 107 mg/dL 70-105 H (BEAKER) (test code = 652) CALCIUM (BEAKER) 7.9 mg/dL 8.4-10.2 L (test code = 697) EGFR (BEAKER) (test 121 mL/min/1.73 ESTIM ATED GFR IS code = 1092) sq m NOT ACCURATE CREATININE CLEARANCE IN PREDICTING GLOMERULAR FILTRATION RATE . ESTIMATED GFR I S NOT APPLICABLE FOR DIALYSIS PATIEN TS. [employer] P[employer] ID - SERGEY [id number] 05:26:00 Test Item Value Reference Range Interpretation Comments Magnesium (test code = 1.9 mg/dL 1.6-2.6 98687-1) MARY ELLEN (test code = MARY ELLEN) [employer] P[employer] ID - SERGEY W Lab Interpretation (test Normal code = 55307-0) [facility] CenterPhosph[facility]2020-[facility] 05:26:00 Test Item Value Reference Range Interpretation Comments Phosphorus (test code = 2.8 mg/dL 2.3-4.7 2777-1) MARY ELLEN (test code = MARY ELLEN) [employer] P[employer] ID Irland[place] RINCON W Lab Interpretation (test Normal code = 81831-0) [facility]PH[facility]US2020-02-10 05:26:00 Test Item Value Reference Range Interpretation Comments PHOSPHORUS (BEAKER) (test code = 2.8 mg/dL 2.3-4.7 604) [employer] P[employer] ID - SERGEY [id number] 05:26:00 Test Item Value Reference Range Interpretation Comments MAGNESIUM (BEAKER) (test code = 1.9 mg/dL 1.6-2.6 627) [employer] ID - SERGEY [id number] 05:00:00 Test Item Value Reference Range Interpretation Comments PTT (test code = 21467-9) 30.2 22.5- 36.0 seconds Lab Interpretation (test code = Normal 17044-2) [facility] CenterAPTT2020-[facility] 05:00:00 Test Item Value Reference Range Interpretation Comments PARTIAL THROMBOPLASTIN TIME 30.2 seconds 22.5-36.0 (BEAKER) (test code = 760) Prothrombin time/[id number] 04:58:00 Test Item Value Reference Range Interpretation Comments Protime (test code = 13.9 11.9- 14.2 5902-2) seconds INR (test code = 1.1 <=5.9 6301-6) MARY ELLEN (test code = MARY ELLEN) Effective 07/07/2018: PT Reference Range ChangeNew: 11.9-14.2 Previous: 11.7-14.7 RECOMMENDED COUMADIN/WARFARIN INR THERAPY RANGESSTANDARD DOSE: 2.0-3.0 Includes: PROPHYLAXIS for venous thrombosis, systemic embolization; TREATMENT for venous thrombosis and/or pulmonary embolus.HIGH RISK: Target INR is 2.5-3.5 for patients wiht mechanical heart valves. Lab Interpretation Normal (test code = 86398-0) [facility] CenterPROTHROMBIN TIME/[id number] 04:58:00 Test Item Value Reference Range Interpretation Comments PROTIME (BEAKER) (test code = 13.9 seconds 11.9-14.2 759) INR (BEAKER) (test code = 370) 1.1 <=5.9 Effective 07/07/2018: PT Reference Range ChangeNew: 11.9-14.2 Previous: 11.7- 14.7RECOMMENDED COUMADIN/WARFARIN INR THERAPY RANGESSTANDARD DOSE: 2.0-3.0 Includes: PROPHYLAXIS for venous thrombosis, systemic embolization; TREATMENT for venous thrombosis and/or pulmonary embolus.HIGH RISK: Target INR is2.5-3.5 for patients wiht mechanical heart valves.CBC (Hemogram only)2019-03-21 04:53:00 Test Item Value Reference Range Interpretation Comments WBC (test code = 6690-2) 6.3 3.5- 10.5 K/L RBC (test code = 789-8) 3.07 4.63- 6.08 M/L L MCHC (test code = 786-4) 32.8 32.3- 36.5 GM/DL L Hematocrit (test code = 4544-3) 27.4 % 40.1-51 L MCV (test code = 787-2) 89.3 fL 79-92.2 MCH (test code = 785-6) 29.3 pg 25.7-32.2 RDW (test code = 788-0) 14.0 % 11.6-14.4 Platelets (test code = 777-3) 129 150- 450 K/CU MM L MPV (test code = 90931-4) 11.9 fL 9.4-12.4 nRBC (test code = 413) 0 0- 0 /100 WBC Lab Interpretation (test code = Abnormal 55675-5) [facility]CBC [facility] ONLY)2019-03-21 04:53:00 Test Item Value Reference Range Interpretation Comments WHITE BLOOD CELL COUNT (BEAKER) 6.3 K/ L 3.5-10.5 (test code = 775) RED BLOOD CELL COUNT (BEAKER) 3.07 M/ L 4.63-6.08 L (test code = 761) HEMOGLOBIN (BEAKER) (test code = 9.0 GM/DL 13.7-17.5 L 410) HEMATOCRIT (BEAKER) (test code = 27.4 % 40.1-51.0 L 411) MEAN CORPUSCULAR VOLUME (BEAKER) 89.3 fL 79.0-92.2 (test code = 753) MEAN CORPUSCULAR HEMOGLOBIN 29.3 pg 25.7-32.2 (BEAKER) (test code = 751) MEAN CORPUSCULAR HEMOGLOBIN CONC 32.8 GM/DL 32.3-36.5 (BEAKER) (test code = 752) RED CELL DISTRIBUTION WIDTH 14.0 % 11.6-14.4 (BEAKER) (test code = 412) PLATELET COUNT (BEAKER) (test 129 K/CU MM 150-450 L code = 756) MEAN PLATELET VOLUME (BEAKER) 11.9 fL 9.4-12.4 (test code = 754) NUCLEATED RED BLOOD CELLS 0 /100 WBC 0-0 (BEAKER) (test code = 413) RAD, CHEST, 1 VIEW, NON [id number] 04:31:00Reason for exam:->Post-opShould this be performed at the bedside?->YesFINAL REPORT Chest one view. Clinical history: Post-op Comparison: Chest radiograph 03/18/2019. Technique: A single frontal view of the chest was obtained. Findings:The patient is status post median sternotomy. There is a right IJ central venous catheter with tip in the SVC. There has been interval removal of right chest tube.The cardiomediastinal contours are stable. There is persistent airspace opacity in the left upper lobe as well as a right paratracheal opacity. There is discoid atelectasis in the left upper lobe. There is a small left pleural effusion. There is a small right apical pneumothorax. Signed: Brendan Springer [facility] Verified Date/Time: 03/21/2019 04:31:32 XR chest 1 view portable / [id number] 04:31:00Interface, External Ris In - 03/21/2019 4:33 AM CSTFINAL REPORT Chest one view. Clinical history: Post-op Comparison: Chest radiograph 03/18/2019. Technique: A single frontal view of the chest was obtained. Findings:The patient is status post median sternotomy. There is a rightIJ central venous catheter with tip in the SVC. There has been interval removal of right chest tube.The cardiomediastinal contours are stable. There is persistent airspace opacity in the left upper lobe as well as a right paratracheal opacity. There is discoid atelectasis in the left upper lobe. Thereis a small left pleural effusion. There is a small right apical pneumothorax. 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 All of the LV segments contract normally . Septal motion is abnormal, likely related to prior cardiac surgery . LVEF by Martinez's method of disk assessment is normal (55-60%) . Normal diastolic function. Ngpv-my-srqgwftb mitral regurgitation. Estimated peak systolic PA pressure is cannot bedetermined due to inadequate TR velocity signal . Signature Findings Rhythm/BP Regular sinus rhythm during the exam. Left Ventricle The LV endocardium is well visualized. The left ventricle is chamber size (by vol index) is normal (male - LVED vol - 34-74ml/m2). Normal LV wall thickness. All of the LV segments contract normally . Septal motion is abnormal, likely related to prior cardiac surgery . LVEF by Martinez's method of disk assessment is normal (55-60%) . Normal diastolic function. Left Atrium LA is well visualized. LA size is normal (16-34 ml/m2) . Right Ventricle The right ventricular cavity size is normal . There is mild systolic dysfunction of the right ventricle. Right Atrium RA size is normal. Atrial Septum Normal interatrial septum by available views. Aortic Valve Normal AoV structure. There is no aortic stenosis. There is no aortic regurgitation. Mitral Valve Mild MV leaflet thickening. Ojkc-tq-fxeppern mitral regurgitation. Tricuspid Valve TV structure is normal. A trace of tricuspid regurgitation. Estimated peak systolic PA pressure is cannot be determined due to inadequate TR velocity signal . Pulmonic Valve Mild pulmonary regurgitation.Aorta Aortic root size (Sinus of Valsalva diameter) is normal. 3.3 cm Proximal ascending aorta size normal . 3.3 cm Pericardium No significant pericardial effusion is visualized. IVC/SVC/PA/PV/Pleural The estimated RA [...] Doppler/Quantitative Measurements Mitral Valve MV Peak E-Wave: 0.91m/s MV Peak A-Wave: 0.7 m/s E/A Ratio: 1.3 Peak Gradient: 3.31 mmHg Deceleration Time: 161 msec MV Oseas. Peak: Tissue Doppler E' Lateral Velocity: 0.08 m/sE/E': 10.8 Aortic Valve Peak Velocity: 1.38 m/s Mean Velocity: 0.99 m/s Peak Gradient: 7.67 mmHg Mean Gradient: 4.42 mmHg AV Area (continuity): 2.96 cm^2 AV VTI: 21.31 cm AV DVI: 0.88 LVOT Peak Velocity: 1.36 m/s Peak Gradient: 7.4 mmHg Mean Velocity: 0.78 m/s Mean Gradient: 2.95 mmHg LVOT Diameter: 2.07 cm LVOT VTI: 18.76 cm LVOT Area: 3.37 cm^2 LVOT SV:63.1 ml LVOT CO: 5.36 l/min LVOT CI: 2.9 l/min/m^2CEmanate Health/F[facility] HospitalPHOSPHORUS2020-02-09 05:46:00 Test Item Value Reference Range Interpretation Comments PHOSPHORUS (BEAKER) (test code = 2.1 mg/dL 2.3-4.7 L 604) [employer] Packer ID - SERGEY [id number] 05:46:00 Test Item Value Reference Range Interpretation Comments MAGNESIUM (BEAKER) (test code = 2.1 mg/dL 1.6-2.6 627) Fine [employer] Packer ID - SERGEY WBASIC METABOLIC [id number] 05:46:00 Test Item Value Reference Range Interpretation Comments SODIUM (BEAKER) 135 meq/L 136-145 L (test code = 381) POTASSIUM (BEAKER) 3.6 meq/L 3.5-5.1 (test code = 379) CHLORIDE (BEAKER) 99 meq/L 98-107 (test code = 382) CO2 (BEAKER) (test 28 meq/L 22-29 code = 355) BLOOD UREA NITROGEN 19 mg/dL 7-21 (BEAKER) (test code = 354) CREATININE (BEAKER) 0.72 mg/dL 0.57-1.25 (test code = 358) GLUCOSE RANDOM 110 mg/dL 70-105 H (BEAKER) (test code = 652) CALCIUM (BEAKER) 8.1 mg/dL 8.4-10.2 L (test code = 697) EGFR (BEAKER) (test 109 mL/min/1.73 ESTIM ATED GFR IS code = 1092) sq m NOT ACCURATE CREATININE CLEARANCE IN PREDICTING GLOMERULAR FILTRATION RATE . ESTIMATED GFR I S NOT APPLICABLE FOR DIALYSIS PATIALENA TS. Fine [employer] Packer ID - SERGEY [id number] 04:56:00 Test Item Value Reference Range Interpretation Comments PARTIAL THROMBOPLASTIN TIME 32.1 seconds 22.5-36.0 (BEAKER) (test code = 760) PROTHROMBIN TIME/[id number] 04:55:00 Test Item Value Reference Range Interpretation Comments PROTIME (BEAKER) (test code = 14.6 seconds 11.9-14.2 H 759) INR (BEAKER) (test code = 370) 1.2 <=5.9 Effective 07/07/2018: PT Reference Range ChangeNew: 11.9-14.2 Previous: 11.7- 14.7RECOMMENDED COUMADIN/WARFARIN INR THERAPY RANGESSTANDARD DOSE: 2.0-3.0 Includes: PROPHYLAXIS for venous thrombosis, systemic embolization; TREATMENT for venous thrombosis and/or pulmonary embolus.HIGH RISK: Target INR is2.5-3.5 for patients wiht mechanical heart valves.CBC (HEMOGRAM ONLY)2019-03-20 04:34:00 Test Item Value Reference Range Interpretation Comments WHITE BLOOD CELL COUNT (BEAKER) 6.8 K/ L 3.5-10.5 (test code = 775) RED BLOOD CELL COUNT (BEAKER) 2.94 M/ L 4.63-6.08 L (test code = 761) HEMOGLOBIN (BEAKER) (test code = 8.7 GM/DL 13.7-17.5 L 410) HEMATOCRIT (BEAKER) (test code = 25.9 % 40.1-51.0 L 411) MEAN CORPUSCULAR VOLUME (BEAKER) 88.1 fL 79.0-92.2 (test code = 753) MEAN CORPUSCULAR HEMOGLOBIN 29.6 pg 25.7-32.2 (BEAKER) (test code = 751) MEAN CORPUSCULAR HEMOGLOBIN CONC 33.6 GM/DL 32.3-36.5 (BEAKER) (test code = 752) RED CELL DISTRIBUTION WIDTH 14.0 % 11.6-14.4 (BEAKER) (test code = 412) PLATELET COUNT (BEAKER) (test 117 K/CU MM 150-450 L code = 756) MEAN PLATELET VOLUME (BEAKER) 12.5 fL 9.4-12.4 H (test code = 754) NUCLEATED RED BLOOD CELLS 0 /100 WBC 0-0 (BEAKER) (test code = 413) [id number] 06:13:00 Test Item Value Reference Range Interpretation Comments PHOSPHORUS (BEAKER) (test code = 1.6 mg/dL 2.3-4.7 L 604) [employer] ID - JAN [id number] 06:13:00 Test Item Value Reference Range Interpretation Comments MAGNESIUM (BEAKER) (test code = 2.2 mg/dL 1.6-2.6 627) [employer] ID - JAN MBASIC METABOLIC [id number] 06:13:00 Test Item Value Reference Range Interpretation Comments SODIUM (BEAKER) 134 meq/L 136-145 L (test code = 381) POTASSIUM (BEAKER) 4.0 meq/L 3.5-5.1 (test code = 379) CHLORIDE (BEAKER) 100 meq/L 98-107 (test code = 382) CO2 (BEAKER) (test 27 meq/L 22-29 code = 355) BLOOD UREA NITROGEN 20 mg/dL 7-21 (BEAKER) (test code = 354) CREATININE (BEAKER) 0.64 mg/dL 0.57-1.25 (test code = 358) GLUCOSE RANDOM 105 mg/dL 70-105 (BEAKER) (test code = 652) CALCIUM (BEAKER) 8.4 mg/dL 8.4-10.2 (test code = 697) EGFR (BEAKER) (test 125 mL/min/1.73 ESTIM ATED GFR IS code = 1092) sq m NOT ACCURATE CREATININE CLEARANCE IN PREDICTING GLOMERULAR FILTRATION RATE . ESTIMATED GFR I S NOT APPLICABLE FOR DIALYSIS PATIEN TS. [employer] ID - JAN MPROTHROMBIN TIME/[id number] 05:34:00 Test Item Value Reference Range Interpretation Comments PROTIME (BEAKER) (test code = 14.1 seconds 11.9-14.2 759) INR (BEAKER) (test code = 370) 1.1 <=5.9 Effective 07/07/2018: PT Reference Range ChangeNew: 11.9-14.2 Previous: 11.7- 14.7RECOMMENDED COUMADIN/WARFARIN INR THERAPY RANGESSTANDARD DOSE: 2.0-3.0 Includes: PROPHYLAXIS for venous thrombosis, systemic embolization; TREATMENT for venous thrombosis and/or pulmonary embolus.HIGH RISK: Target INR is2.5-3.5 for patients wiht mechanical heart valves.[id number] 05:34:00 Test Item Value Reference Range Interpretation Comments PARTIAL THROMBOPLASTIN TIME 31.9 seconds 22.5-36.0 (BEAKER) (test code = 760) CBC (HEMOGRAM ONLY)2019-03-19 05:12:00 Test Item Value Reference Range Interpretation Comments WHITE BLOOD CELL COUNT (BEAKER) 8.9 K/ L 3.5-10.5 (test code = 775) RED BLOOD CELL COUNT (BEAKER) 3.00 M/ L 4.63-6.08 L (test code = 761) HEMOGLOBIN (BEAKER) (test code = 9.0 GM/DL 13.7-17.5 L 410) HEMATOCRIT (BEAKER) (test code = 26.8 % 40.1-51.0 L 411) MEAN CORPUSCULAR VOLUME (BEAKER) 89.3 fL 79.0-92.2 (test code = 753) MEAN CORPUSCULAR HEMOGLOBIN 30.0 pg 25.7-32.2 (BEAKER) (test code = 751) MEAN CORPUSCULAR HEMOGLOBIN CONC 33.6 GM/DL 32.3-36.5 (BEAKER) (test code = 752) RED CELL DISTRIBUTION WIDTH 14.6 % 11.6-14.4 H (BEAKER) (test code = 412) PLATELET COUNT (BEAKER) (test code 88 K/CU MM 150-450 L = 756) MEAN PLATELET VOLUME (BEAKER) 12.8 fL 9.4-12.4 H (test code = 754) NUCLEATED RED BLOOD CELLS (BEAKER) 0 /100 WBC 0-0 (test code = 413) RAD, CHEST, 1 VIEW, NON [id number] 13:49:00Reason for exam:->chest tube removalShould this be performed at the bedside?->YesFINAL REPORT RAD, CHEST, 1 VIEW, NON DEPT INDICATION: chest tube removal CHERRIE RISON: Earlier same day FINDINGS: Portable frontal view of the chest. IMPRESSION: Support Lines:Right IJ catheter and chest tubes are unchanged. Mediastinal drain. Sternotomy wires Lungs and pleura: Retrocardiac atelectasis is unchanged . Small left apical pneumothorax.Heart and mediastinum: Stable contours. Stable surgical changes.Additional findings: None Small left apical pneumothorax status post removal of chest tube. Signed: London Wade Verified Date/Time: 03/18/2019 13:49:41Reading Location: [facility] Radiology Reading Room RAD, CHEST, 1 VIEW, NON [id number] 09:23:00Reason for exam:->IntubationShould this be performed at the bedside?->YesFINAL REPORT RAD, CHEST, 1 VIEW, NON DEPT INDICATION: Intubation COMPARISON: Prior day's exam FINDINGS: Portable frontal view of the chest. IMPRESSION: Support Lines: Right IJcatheter and chest tubes are unchanged. Mediastinal drain. Sternotomy wires Lungs and pleura: Retrocardiac atelectasis is unchanged No pneumothorax.Heart and mediastinum: Stable contours. Stable surgical changes.Additional findings: None. Signed: London Wade Verified Date/Time: 03/18/2019 09:23:34 Reading Location: [facility] Radiology Reading Room [id number] 05:06:00 Test Item Value Reference Range Interpretation Comments PHOSPHORUS (BEAKER) (test code = 2.2 mg/dL 2.3-4.7 L 604) [employer] SUNSHINE MONTOYA [id number] 05:06:00 Test Item Value Reference Range Interpretation Comments MAGNESIUM (BEAKER) (test code = 2.6 mg/dL 1.6-2.6 627) [employer] Packer SUNSHINE MONTOYA MBASIC METABOLIC [id number] 05:06:00 Test Item Value Reference Range Interpretation Comments SODIUM (BEAKER) 135 meq/L 136-145 L (test code = 381) POTASSIUM (BEAKER) 4.6 meq/L 3.5-5.1 (test code = 379) CHLORIDE (BEAKER) 103 meq/L 98-107 (test code = 382) CO2 (BEAKER) (test 27 meq/L 22-29 code = 355) BLOOD UREA NITROGEN 26 mg/dL 7-21 H (BEAKER) (test code = 354) CREATININE (BEAKER) 0.71 mg/dL 0.57-1.25 (test code = 358) GLUCOSE RANDOM 131 mg/dL 70-105 H (BEAKER) (test code = 652) CALCIUM (BEAKER) 9.0 mg/dL 8.4-10.2 (test code = 697) EGFR (BEAKER) (test 111 mL/min/1.73 ESTIM ATED GFR IS code = 1092) sq m NOT ACCURATE CREATININE CLEARANCE IN PREDICTING GLOMERULAR FILTRATION RATE . ESTIMATED GFR I S NOT APPLICABLE FOR DIALYSIS PATIEN TS. Fine [employer] Packer SUNHSINE MONTOYA MPROTHROMBIN TIME/[id number] 04:42:00 Test Item Value Reference Range Interpretation Comments PROTIME (BEAKER) (test code = 13.7 seconds 11.9-14.2 759) INR (BEAKER) (test code = 370) 1.1 <=5.9 Effective 07/07/2018: PT Reference Range ChangeNew: 11.9-14.2 Previous: 11.7- 14.7RECOMMENDED COUMADIN/WARFARIN INR THERAPY RANGESSTANDARD DOSE: 2.0-3.0 Includes: PROPHYLAXIS for venous thrombosis, systemic embolization; TREATMENT for venous thrombosis and/or pulmonary embolus.HIGH RISK: Target INR is2.5-3.5 for patients wiht mechanical heart valves.[id number] 04:42:00 Test Item Value Reference Range Interpretation Comments PARTIAL THROMBOPLASTIN TIME 29.6 seconds 22.5-36.0 (BEAKER) (test code = 760) CBC (HEMOGRAM ONLY)2019-03-18 04:28:00 Test Item Value Reference Range Interpretation Comments WHITE BLOOD CELL COUNT (BEAKER) 14.4 K/ L 3.5-10.5 H (test code = 775) RED BLOOD CELL COUNT (BEAKER) 3.22 M/ L 4.63-6.08 L (test code = 761) HEMOGLOBIN (BEAKER) (test code = 9.3 GM/DL 13.7-17.5 L 410) HEMATOCRIT (BEAKER) (test code = 29.2 % 40.1-51.0 L 411) MEAN CORPUSCULAR VOLUME (BEAKER) 90.7 fL 79.0-92.2 (test code = 753) MEAN CORPUSCULAR HEMOGLOBIN 28.9 pg 25.7-32.2 (BEAKER) (test code = 751) MEAN CORPUSCULAR HEMOGLOBIN CONC 31.8 GM/DL 32.3-36.5 L (BEAKER) (test code = 752) RED CELL DISTRIBUTION WIDTH 15.1 % 11.6-14.4 H (BEAKER) (test code = 412) PLATELET COUNT (BEAKER) (test 112 K/CU MM 150-450 L code = 756) MEAN PLATELET VOLUME (BEAKER) 13.1 fL 9.4-12.4 H (test code = 754) NUCLEATED RED BLOOD CELLS 0 /100 WBC 0-0 (BEAKER) (test code = 413) Prepare Leuko-Red [id number] 23:54:00 Test Item Value Reference Range Interpretation Comments CROSSMATCH (test code = 2264) COMPATIBLE Unit ABO (test code = O Pos 1467244) UNIT NUMBER (test code = [id number] 934-0) Status (test code = 3470488) TX_TIMEINCHART Blood Bank Product (test code RED BLOOD CELLS = 2263) PRODUCT CODE (test code = G9888R56 933-2) [facility] [id number] 23:54:00 Test Item Value Reference Range Interpretation Comments Unit ABO (test code = 2599703) B Pos UNIT NUMBER (test code = [id number] 934-0) Status (test code = 2035341) TX_TIMEINCHART Blood Bank Product (test code PLATELETS = 2263) PRODUCT CODE (test code = B0427M47 933-2) [facility], 1 VIEW, NON [id number] 08:52:00 Reason for exam:->IntubationShould this be performed at the bedside?->Yes FINAL REPORT Comparison: 03/16/2019 TECHNIQUE: Single view of the chest FINDINGS: Interval removal of endotracheal tube and nasogastric tube. Remaining support lines and tubes are stable. No other significant change. Small left pleural effusion with adjacent airspace disease noted. No pneumothorax. Right upper lobe/apical medial pleural parenchymal opacity again noted. Signed: Jaxon Randolph [facility] Verified Date/Time: 03/17/2019 08:52:37 Reading Location: [facility] Radiology ReadingRoom [id number] 03:56:00 Test Item Value Reference Range Interpretation Comments PHOSPHORUS (BEAKER) (test code = 1.9 mg/dL 2.3-4.7 L 604) [employer] ID - SERGEY [id number] 03:56:00 Test Item Value Reference Range Interpretation Comments MAGNESIUM (BEAKER) (test code = 2.7 mg/dL 1.6-2.6 H 627) [employer] Packer ID - SERGEY WBASIC METABOLIC [id number] 03:56:00 Test Item Value Reference Range Interpretation Comments SODIUM (BEAKER) 139 meq/L 136-145 (test code = 381) POTASSIUM (BEAKER) 4.6 meq/L 3.5-5.1 (test code = 379) CHLORIDE (BEAKER) 110 meq/L 98-107 H (test code = 382) CO2 (BEAKER) (test 24 meq/L 22-29 code = 355) BLOOD UREA NITROGEN 21 mg/dL 7-21 (BEAKER) (test code = 354) CREATININE (BEAKER) 0.68 mg/dL 0.57-1.25 (test code = 358) GLUCOSE RANDOM 190 mg/dL 70-105 H (BEAKER) (test code = 652) CALCIUM (BEAKER) 8.3 mg/dL 8.4-10.2 L (test code = 697) EGFR (BEAKER) (test 117 mL/min/1.73 ESTIM ATED GFR IS code = 1092) sq m NOT ACCURATE CREATININE CLEARANCE IN PREDICTING GLOMERULAR FILTRATION RATE . ESTIMATED GFR I S NOT APPLICABLE FOR DIALYSIS PATIEN TS. Fine Arts Packer ID - SERGEY WPROTHROMBIN TIME/[id number] 03:47:00 Test Item Value Reference Range Interpretation Comments PROTIME (BEAKER) (test code = 16.0 seconds 11.9-14.2 H 759) INR (BEAKER) (test code = 370) 1.3 <=5.9 Effective 07/07/2018: PT Reference Range ChangeNew: 11.9-14.2 Previous: 11.7- 14.7RECOMMENDED COUMADIN/WARFARIN INR THERAPY RANGESSTANDARD DOSE: 2.0-3.0 Includes: PROPHYLAXIS for venous thrombosis, systemic embolization; TREATMENT for venous thrombosis and/or pulmonary embolus.HIGH RISK: Target INR is2.5-3.5 for patients wiht mechanical heart valves.[id number] 03:47:00 Test Item Value Reference Range Interpretation Comments PARTIAL THROMBOPLASTIN TIME 33.7 seconds 22.5-36.0 (BEAKER) (test code = 760) CBC (HEMOGRAM ONLY)2019-03-17 03:38:00 Test Item Value Reference Range Interpretation Comments WHITE BLOOD CELL COUNT (BEAKER) 9.3 K/ L 3.5-10.5 (test code = 775) RED BLOOD CELL COUNT (BEAKER) 3.09 M/ L 4.63-6.08 L (test code = 761) HEMOGLOBIN (BEAKER) (test code = 9.2 GM/DL 13.7-17.5 L 410) HEMATOCRIT (BEAKER) (test code = 27.4 % 40.1-51.0 L 411) MEAN CORPUSCULAR VOLUME (BEAKER) 88.7 fL 79.0-92.2 (test code = 753) MEAN CORPUSCULAR HEMOGLOBIN 29.8 pg 25.7-32.2 (BEAKER) (test code = 751) MEAN CORPUSCULAR HEMOGLOBIN CONC 33.6 GM/DL 32.3-36.5 (BEAKER) (test code = 752) RED CELL DISTRIBUTION WIDTH 15.3 % 11.6-14.4 H (BEAKER) (test code = 412) PLATELET COUNT (BEAKER) (test code 81 K/CU MM 150-450 L = 756) MEAN PLATELET VOLUME (BEAKER) 12.7 fL 9.4-12.4 H (test code = 754) NUCLEATED RED BLOOD CELLS (BEAKER) 0 /100 WBC 0-0 (test code = 413) Prepare [id number] 23:54:00 Test Item Value Reference Range Interpretation Comments CROSSMATCH (test code = COMPATIBLE 2264) Unit ABO (test code = O Pos 0225015) UNIT NUMBER (test code = [id number] 934-0) Status (test code = RETURNED FROM ISSUE 2637537) Blood Bank Product (test RED BLOOD CELLS code = 2263) PRODUCT CODE (test code = G1947U12 933-2) [facility] CenterECG 12 [id number] 16:24:31Interface, External Ris In - 03/16/2019 4:24 PM CSTVentricular Rate 76 BPMAtrial Rate 76 BPMP-R Interval 122 msQRS Duration 92 msQ-T Interval 420 msQTC Calculation(Bazett) 472 msP [place] 49 degreesR [place] 1 degreesT [place] -4 degreesNormal sinus rhythmST elevation, consider early repolarization, pericarditis, or injuryT wave abnormality, consider inferior ischemiaProlonged QTAbnormal ECGWhen compared with ECG of elevation inanterior leads is more prominent on the current EKG. Confirmed by Onel MCELROY BASANT ([id number]) on 03/16/2019 4:24:25 [facility], NON [id number] 04:12:00Reason for exam:->IntubationShould this be performed at the bedside?->YesFINAL REPORT Chest one view. Clinical history: Intubation Comparison: Chest radiograph 03/15/2019. Technique: A single frontal view of the chest was obtained. Findings: The patient is status post post median sternotomy. There are bilateral chest tubes. There are mediastinal drains. Endotracheal and feeding tubes are in satisfactory positions. There is a right IJ catheter with tip in the SVC. There is a right paratracheal opacity suspicious for an underlying hematoma. Further evaluation with CT may be obtained as clinically warranted. The cardiac silhouette is stable in size. There is airspace opacity in the left lower lobe which represent atelectasis and/or pneumonia. There is no pneumothorax. Signed: Brendan Springer MDReport Verified Date/Time: 03/16/2019 04:12:50 BASIC METABOLIC [id number] 03:44:00 Test Item Value Reference Range Interpretation Comments SODIUM (BEAKER) 144 meq/L 136-145 (test code = 381) POTASSIUM (BEAKER) 4.4 meq/L 3.5-5.1 Specimen slightly (test code = 379) hemolyzed CHLORIDE (BEAKER) 117 meq/L 98-107 H (test code = 382) CO2 (BEAKER) (test 19 meq/L 22-29 L code = 355) BLOOD UREA NITROGEN 14 mg/dL 7-21 (BEAKER) (test code = 354) CREATININE (BEAKER) 0.76 mg/dL 0.57-1.25 Specimen slightly (test code = 358) hemolyzed GLUCOSE RANDOM 133 mg/dL 70-105 H (BEAKER) (test code = 652) CALCIUM (BEAKER) 7.5 mg/dL 8.4-10.2 L (test code = 697) EGFR (BEAKER) (test 103 mL/min/1.73 ESTIM ATED GFR IS code = 1092) sq m NOT ACCURATE CREATININE CLEARANCE IN PREDICTING GLOMERULAR FILTRATION RATE . ESTIMATED GFR I S NOT APPLICABLE FOR DIALYSIS PATIEN TS. Fine [employer] Packer ID - JAN [id number] 03:43:00 Test Item Value Reference Range Interpretation Comments MAGNESIUM (BEAKER) 2.5 mg/dL 1.6-2.6 Specimen slightly (test code = 627) hemolyzed Fine [employer] Packer ID - JAN [id number] 03:43:00 Test Item Value Reference Range Interpretation Comments PHOSPHORUS (BEAKER) 3.3 mg/dL 2.3-4.7 Specimen slightly (test code = 604) hemolyzed Fine Arts Packer SUNSHINE MONTOYA BC (HEMOGRAM ONLY)2019-03-16 03:35:00 Test Item Value Reference Range Interpretation Comments WHITE BLOOD CELL COUNT (BEAKER) 6.5 K/ L 3.5-10.5 (test code = 775) RED BLOOD CELL COUNT (BEAKER) 2.84 M/ L 4.63-6.08 L (test code = 761) HEMOGLOBIN (BEAKER) (test code = 8.4 GM/DL 13.7-17.5 L 410) HEMATOCRIT (BEAKER) (test code = 25.8 % 40.1-51.0 L 411) MEAN CORPUSCULAR VOLUME (BEAKER) 90.8 fL 79.0-92.2 (test code = 753) MEAN CORPUSCULAR HEMOGLOBIN 29.6 pg 25.7-32.2 (BEAKER) (test code = 751) MEAN CORPUSCULAR HEMOGLOBIN CONC 32.6 GM/DL 32.3-36.5 (BEAKER) (test code = 752) RED CELL DISTRIBUTION WIDTH 14.2 % 11.6-14.4 (BEAKER) (test code = 412) PLATELET COUNT (BEAKER) (test 144 K/CU MM 150-450 L code = 756) MEAN PLATELET VOLUME (BEAKER) 11.9 fL 9.4-12.4 (test code = 754) NUCLEATED RED BLOOD CELLS 0 /100 WBC 0-0 (BEAKER) (test code = 413) [id number] 03:34:00 Test Item Value Reference Range Interpretation Comments PARTIAL THROMBOPLASTIN TIME 35.6 seconds 22.5-36.0 (BEAKER) (test code = 760) PROTHROMBIN TIME/[id number] 03:33:00 Test Item Value Reference Range Interpretation Comments PROTIME (BEAKER) (test code = 16.9 seconds 11.9-14.2 H 759) INR (BEAKER) (test code = 370) 1.4 <=5.9 Effective 07/07/2018: PT Reference Range ChangeNew: 11.9-14.2 Previous: 11.7- 14.7RECOMMENDED COUMADIN/WARFARIN INR THERAPY RANGESSTANDARD DOSE: 2.0-3.0 Includes: PROPHYLAXIS for venous thrombosis, systemic embolization; TREATMENT for venous thrombosis and/or pulmonary embolus.HIGH RISK: Target INR is2.5-3.5 for patients wiht mechanical heart valves.Blood gas, [id number] 03:29:00 Test Item Value Reference Range Interpretation Comments pH, Arterial (test code = 7.38 7.35-7.45 2744-1) pCO2, Arterial (test code 38 35- 45 mmHg = 2019-8) pO2, Arterial (test code = 196 80- 90 mmHg H 2703-7) O2 Sat, Arterial (test 99.3 % 96-97 H code = 2708-6) HCO3, Arterial (test code 21 mmol/L 21-29 = 1960-4) Base Excess, Arterial -3.1 mmol/L -2-3 L (test code = 1925-7) Patient Temperature (test 38.3 C code = 8310-5) FIO2 (test code = 1819) 60 % MARY ELLEN (test code = MARY ELLEN) Daily ABG with morning labs while patient is intubated. Lab Interpretation (test Abnormal code = 95487-2) [facility] CenterBL[facility], [id number] 03:29:00 Test Item Value Reference Range Interpretation Comments PH ARTERIAL (BEAKER) (test code = 7.38 7.35-7.45 383) PCO2 ARTERIAL (BEAKER) (test code 38 mmHg 35-45 = 384) PO2 ARTERIAL (BEAKER) (test code 196 mmHg 80-90 H = 385) O2 SATURATION ARTERIAL (BEAKER) 99.3 % 96.0-97.0 H (test code = 386) HCO3 ARTERIAL (BEAKER) (test code 21 mmol/L 21-29 = 388) BASE EXCESS ARTERIAL (BEAKER) -3.1 mmol/L -2.0-3.0 L (test code = 387) PATIENT TEMPERATURE (BEAKER) 38.3 C (test code = 1818) FIO2 (BEAKER) (test code = 1819) 60.0 % Daily ABG with morning labs while patient is intubated.CBC with platelet count + automated [id number] 01:27:00 Test Item Value Reference Range Interpretation Comments WBC (test code = 6690-2) 5.9 3.5- 10.5 K/L RBC (test code = 789-8) 2.47 4.63- 6.08 M/L L MCHC (test code = 786-4) 32.7 32.3- 36.5 GM/DL L Hematocrit (test code = 4544-3) 22.6 % 40.1-51 L MCV (test code = 787-2) 91.5 fL 79-92.2 MCH (test code = 785-6) 30.0 pg 25.7-32.2 RDW (test code = 788-0) 14.0 % 11.6-14.4 Platelets (test code = 777-3) 153 150- 450 K/CU MM MPV (test code = 64715-5) 11.2 fL 9.4-12.4 nRBC (test code = 413) 0 0- 0 /100 WBC % Neutros (test code = 429) 82 % % Lymphs (test code = 430) 7 % % Monos (test code = 431) 10 % % Eos (test code = 432) 0 % % Baso (test code = 437) 1 % # Neutros (test code = 670) 4.78 1.78- 5.38 K/L # Lymphs (test code = 414) 0.39 1.32- 3.57 K/L L # Monos (test code = 415) 0.61 0.30- 0.82 K/L # Eos (test code = 416) 0.02 0.04- 0.54 K/L L # Baso (test code = 417) 0.04 0.01- 0.08 K/L Immature Granulocytes-Relative 0 % 0-1 (test code = 2801) Lab Interpretation (test code = Abnormal 01319-7) [facility] CenterCB [facility]/PLT COUNT & AUTO [id number] 01:27:00 Test Item Value Reference Range Interpretation Comments WHITE BLOOD CELL COUNT (BEAKER) 5.9 K/ L 3.5-10.5 (test code = 775) RED BLOOD CELL COUNT (BEAKER) 2.47 M/ L 4.63-6.08 L (test code = 761) HEMOGLOBIN (BEAKER) (test code = 7.4 GM/DL 13.7-17.5 L 410) HEMATOCRIT (BEAKER) (test code = 22.6 % 40.1-51.0 L 411) MEAN CORPUSCULAR VOLUME (BEAKER) 91.5 fL 79.0-92.2 (test code = 753) MEAN CORPUSCULAR HEMOGLOBIN 30.0 pg 25.7-32.2 (BEAKER) (test code = 751) MEAN CORPUSCULAR HEMOGLOBIN CONC 32.7 GM/DL 32.3-36.5 (BEAKER) (test code = 752) RED CELL DISTRIBUTION WIDTH 14.0 % 11.6-14.4 (BEAKER) (test code = 412) PLATELET COUNT (BEAKER) (test 153 K/CU MM 150-450 code = 756) MEAN PLATELET VOLUME (BEAKER) 11.2 fL 9.4-12.4 (test code = 754) NUCLEATED RED BLOOD CELLS 0 /100 WBC 0-0 (BEAKER) (test code = 413) NEUTROPHILS RELATIVE PERCENT 82 % (BEAKER) (test code = 429) LYMPHOCYTES RELATIVE PERCENT 7 % (BEAKER) (test code = 430) MONOCYTES RELATIVE PERCENT 10 % (BEAKER) (test code = 431) EOSINOPHILS RELATIVE PERCENT 0 % (BEAKER) (test code = 432) BASOPHILS RELATIVE PERCENT 1 % (BEAKER) (test code = 437) NEUTROPHILS ABSOLUTE COUNT 4.78 K/ L 1.78-5.38 (BEAKER) (test code = 670) LYMPHOCYTES ABSOLUTE COUNT 0.39 K/ L 1.32-3.57 L (BEAKER) (test code = 414) MONOCYTES ABSOLUTE COUNT (BEAKER) 0.61 K/ L 0.30-0.82 (test code = 415) EOSINOPHILS ABSOLUTE COUNT 0.02 K/ L 0.04-0.54 L (BEAKER) (test code = 416) BASOPHILS ABSOLUTE COUNT (BEAKER) 0.04 K/ L 0.01-0.08 (test code = 417) IMMATURE GRANULOCYTES-RELATIVE 0 % 0-1 PERCENT (BEAKER) (test code = 2801) [id number] 18:10:00 Test Item Value Reference Range Interpretation Comments PARTIAL THROMBOPLASTIN TIME 32.7 seconds 22.5-36.0 (BEAKER) (test code = 760) PROTHROMBIN TIME/[id number] 18:09:00 Test Item Value Reference Range Interpretation Comments PROTIME (BEAKER) (test code = 16.6 seconds 11.9-14.2 H 759) INR (BEAKER) (test code = 370) 1.4 <=5.9 Effective 07/07/2018: PT Reference Range ChangeNew: 11.9-14.2 Previous: 11.7- 14.7RECOMMENDED COUMADIN/WARFARIN INR THERAPY RANGESSTANDARD DOSE: 2.0-3.0 Includes: PROPHYLAXIS for venous thrombosis, systemic embolization; TREATMENT for venous thrombosis and/or pulmonary embolus.HIGH RISK: Target INR is2.5-3.5 for patients wiht mechanical heart valves.CBC W/PLT COUNT & AUTO [id number] 17:53:00 Test Item Value Reference Range Interpretation Comments WHITE BLOOD CELL COUNT (BEAKER) 5.6 K/ L 3.5-10.5 (test code = 775) RED BLOOD CELL COUNT (BEAKER) 3.25 M/ L 4.63-6.08 L (test code = 761) HEMOGLOBIN (BEAKER) (test code = 9.6 GM/DL 13.7-17.5 L 410) HEMATOCRIT (BEAKER) (test code = 28.9 % 40.1-51.0 L 411) MEAN CORPUSCULAR VOLUME (BEAKER) 88.9 fL 79.0-92.2 (test code = 753) MEAN CORPUSCULAR HEMOGLOBIN 29.5 pg 25.7-32.2 (BEAKER) (test code = 751) MEAN CORPUSCULAR HEMOGLOBIN CONC 33.2 GM/DL 32.3-36.5 (BEAKER) (test code = 752) RED CELL DISTRIBUTION WIDTH 13.5 % 11.6-14.4 (BEAKER) (test code = 412) PLATELET COUNT (BEAKER) (test 108 K/CU MM 150-450 L code = 756) MEAN PLATELET VOLUME (BEAKER) 11.9 fL 9.4-12.4 (test code = 754) NUCLEATED RED BLOOD CELLS 0 /100 WBC 0-0 (BEAKER) (test code = 413) NEUTROPHILS RELATIVE PERCENT 80 % (BEAKER) (test code = 429) LYMPHOCYTES RELATIVE PERCENT 7 % (BEAKER) (test code = 430) MONOCYTES RELATIVE PERCENT 11 % (BEAKER) (test code = 431) EOSINOPHILS RELATIVE PERCENT 1 % (BEAKER) (test code = 432) BASOPHILS RELATIVE PERCENT 0 % (BEAKER) (test code = 437) NEUTROPHILS ABSOLUTE COUNT 4.51 K/ L 1.78-5.38 (BEAKER) (test code = 670) LYMPHOCYTES ABSOLUTE COUNT 0.39 K/ L 1.32-3.57 L (BEAKER) (test code = 414) MONOCYTES ABSOLUTE COUNT (BEAKER) 0.63 K/ L 0.30-0.82 (test code = 415) EOSINOPHILS ABSOLUTE COUNT 0.04 K/ L 0.04-0.54 (BEAKER) (test code = 416) BASOPHILS ABSOLUTE COUNT (BEAKER) 0.02 K/ L 0.01-0.08 (test code = 417) IMMATURE GRANULOCYTES-RELATIVE 0 % 0-1 PERCENT (BEAKER) (test code = 2801) RAD, CHEST, 1 VIEW, NON [id number] 15:51:00Post-intubationReason for exam:- >Post opShould this be performed at the bedside?->YesFINAL REPORT RAD, CHEST, 1 VIEW, NON DEPT INDICATION: Post op COMPARISON: 2018 FINDINGS: Portable frontal view of the chest. IMPRESSION: Support Lines: ET tube tube is 3 cm superior to the hi. Right IJ catheter tip overlies the SVC. Bilateral chest tubes. Lungs and pleura: Mild central pulmonary venous congestion No pneumothorax.Heart and mediastinum: Stable c ontours. .Additional findings: None. Signed: London Wade MDReport Verified Date/Time: 03/15/2019 15:51:14 Reading Location: [facility] Radiology Reading Room BASIC METABOLIC [id number] 15:10:00 Test Item Value Reference Range Interpretation Comments SODIUM (BEAKER) 145 meq/L 136-145 (test code = 381) POTASSIUM (BEAKER) 4.4 meq/L 3.5-5.1 (test code = 379) CHLORIDE (BEAKER) 115 meq/L 98-107 H (test code = 382) CO2 (BEAKER) (test 24 meq/L 22-29 code = 355) BLOOD UREA NITROGEN 15 mg/dL 7-21 (BEAKER) (test code = 354) CREATININE (BEAKER) 0.66 mg/dL 0.57-1.25 (test code = 358) GLUCOSE RANDOM 116 mg/dL 70-105 H (BEAKER) (test code = 652) CALCIUM (BEAKER) 7.7 mg/dL 8.4-10.2 L (test code = 697) EGFR (BEAKER) (test 121 mL/min/1.73 ESTIM ATED GFR IS code = 1092) sq m NOT ACCURATE CREATININE CLEARANCE IN PREDICTING GLOMERULAR FILTRATION RATE . ESTIMATED GFR I S NOT APPLICABLE FOR DIALYSIS PATIEN TS. Fine [employer] Packer ID - NTPPROTHROMBIN TIME/[id number] 15:10:00 Test Item Value Reference Range Interpretation Comments PROTIME (BEAKER) (test code = 18.9 seconds 11.9-14.2 H 759) INR (BEAKER) (test code = 370) 1.6 <=5.9 Effective 07/07/2018: PT Reference Range ChangeNew: 11.9-14.2 Previous: 11.7- 14.7RECOMMENDED COUMADIN/WARFARIN INR THERAPY RANGESSTANDARD DOSE: 2.0-3.0 Includes: PROPHYLAXIS for venous thrombosis, systemic embolization; TREATMENT for venous thrombosis and/or pulmonary embolus.HIGH RISK: Target INR is2.5-3.5 for patients wiht mechanical heart valves.[id number] 15:06:00 Test Item Value Reference Range Interpretation Comments PARTIAL THROMBOPLASTIN TIME 33.0 seconds 22.5-36.0 (BEAKER) (test code = 760) CBC W/PLT COUNT & AUTO [id number] 15:03:00 Test Item Value Reference Range Interpretation Comments WHITE BLOOD CELL COUNT (BEAKER) 4.4 K/ L 3.5-10.5 (test code = 775) RED BLOOD CELL COUNT (BEAKER) 2.81 M/ L 4.63-6.08 L (test code = 761) HEMOGLOBIN (BEAKER) (test code = 8.3 GM/DL 13.7-17.5 L 410) HEMATOCRIT (BEAKER) (test code = 25.4 % 40.1-51.0 L 411) MEAN CORPUSCULAR VOLUME (BEAKER) 90.4 fL 79.0-92.2 (test code = 753) MEAN CORPUSCULAR HEMOGLOBIN 29.5 pg 25.7-32.2 (BEAKER) (test code = 751) MEAN CORPUSCULAR HEMOGLOBIN CONC 32.7 GM/DL 32.3-36.5 (BEAKER) (test code = 752) RED CELL DISTRIBUTION WIDTH 13.4 % 11.6-14.4 (BEAKER) (test code = 412) PLATELET COUNT (BEAKER) (test code 99 K/CU MM 150-450 L = 756) MEAN PLATELET VOLUME (BEAKER) 11.2 fL 9.4-12.4 (test code = 754) NUCLEATED RED BLOOD CELLS (BEAKER) 0 /100 WBC 0-0 (test code = 413) NEUTROPHILS RELATIVE PERCENT 82 % (BEAKER) (test code = 429) LYMPHOCYTES RELATIVE PERCENT 10 % (BEAKER) (test code = 430) MONOCYTES RELATIVE PERCENT 6 % (BEAKER) (test code = 431) EOSINOPHILS RELATIVE PERCENT 1 % (BEAKER) (test code = 432) BASOPHILS RELATIVE PERCENT 0 % (BEAKER) (test code = 437) NEUTROPHILS ABSOLUTE COUNT 3.62 K/ L 1.78-5.38 (BEAKER) (test code = 670) LYMPHOCYTES ABSOLUTE COUNT 0.42 K/ L 1.32-3.57 L (BEAKER) (test code = 414) MONOCYTES ABSOLUTE COUNT (BEAKER) 0.27 K/ L 0.30-0.82 L (test code = 415) EOSINOPHILS ABSOLUTE COUNT 0.06 K/ L 0.04-0.54 (BEAKER) (test code = 416) BASOPHILS ABSOLUTE COUNT (BEAKER) 0.01 K/ L 0.01-0.08 (test code = 417) IMMATURE GRANULOCYTES-RELATIVE 1 % 0-1 PERCENT (BEAKER) (test code = 2801) HGB/HCT (H&H)-Stat [id number] 15:00:00 Test Item Value Reference Range Interpretation Comments Hemoglobin (test code = 786-4) 8.7 g/dL 13-16.8 L Hematocrit (test code = 4544-3) 26.0 % 40-50 L Lab Interpretation (test code = Abnormal 42259-6) [facility] [id number] 15:00:00 Test Item Value Reference Range Interpretation Comments Glucose (test code = 2345-7) 123 mg/dL 70-110 H Lab Interpretation (test code = Abnormal 97051-3) [facility], [id number] 15:00:00 Test Item Value Reference Range Interpretation Comments PH ARTERIAL (BEAKER) (test code = 7.40 7.35-7.45 383) PCO2 ARTERIAL (BEAKER) (test code 36 mmHg 35-45 = 384) PO2 ARTERIAL (BEAKER) (test code 216 mmHg 80-90 H = 385) O2 SATURATION ARTERIAL (BEAKER) 99.5 % 96.0-97.0 H (test code = 386) HCO3 ARTERIAL (BEAKER) (test code 23 mmol/L 21-29 = 388) BASE EXCESS ARTERIAL (BEAKER) -2.5 mmol/L -2.0-3.0 L (test code = 387) PATIENT TEMPERATURE (BEAKER) 34.6 C (test code = 1818) FIO2 (BEAKER) (test code = 1819) 60.0 % GLUCOSE-STAT [id number] 15:00:00 Test Item Value Reference Range Interpretation Comments GLUCOSE RANDOM (BEAKER) (test code 123 mg/dL 70-110 H = 652) HGB/HCT (H&H) - STAT [id number] 15:00:00 Test Item Value Reference Range Interpretation Comments HEMOGLOBIN (BEAKER) (test code = 8.7 g/dL 13.0-16.8 L 410) HEMATOCRIT (BEAKER) (test code = 26.0 % 40.0-50.0 L 411) Sodium Na-Stat [id number] 14:59:00 Test Item Value Reference Range Interpretation Comments Sodium (test code = 2951-2) 142 meq/L 135-148 Lab Interpretation (test code = Normal 79479-4) [facility] [id number] 14:59:00 Test Item Value Reference Range Interpretation Comments Potassium (test code = 2823-3) 4.2 meq/L 3.6-5.5 Lab Interpretation (test code = Normal 07379-1) [facility] [id number] 14:59:00 Test Item Value Reference Range Interpretation Comments SODIUM (BEAKER) (test code = 381) 142 meq/L 135-148 POTASSIUM-STAT [id number] 14:59:00 Test Item Value Reference Range Interpretation Comments POTASSIUM (BEAKER) (test code = 4.2 meq/L 3.6-5.5 379) POC ACTIVATED CLOTTING [id number] 13:34:00 Test Item Value Reference Range Interpretation Comments Activated Clotting Time 109 sec Refe rence Range: 74-137 (test code = 441) seconds, B aseline/TESTED AT [place] [address] [address] [place] [address] [id number] 13:34:00 Test Item Value Reference Range Interpretation Comments ACTIVATED CLOTTING TIME 109 sec Refe rence Range: (BEAKER) (test code = 74-137 seconds, 441) Baseline/TESTED AT [place] [address] [id number] 13:34:00 Test Item Value Reference Range Interpretation Comments ACTIVATED CLOTTING TIME 708 sec Refe rence Range: (BEAKER) (test code = 74-137 seconds, 441) Baseline/TESTED AT [address] [address] [id number] 13:34:00 Test Item Value Reference Range Interpretation Comments ACTIVATED CLOTTING TIME 901 sec Refe rence Range: (BEAKER) (test code = 74-137 seconds, 441) Baseline/TESTED AT [address] [address] [id number] 13:34:00 Test Item Value Reference Range Interpretation Comments ACTIVATED CLOTTING TIME 824 sec Refe rence Range: (BEAKER) (test code = 74-137 seconds, 441) Baseline/TESTED AT [address] [address] [id number] 13:34:00 Test Item Value Reference Range Interpretation Comments ACTIVATED CLOTTING TIME 466 sec Refe rence Range: (BEAKER) (test code = 74-137 seconds, 441) Baseline/TESTED AT [address] [address] [id number] 13:34:00 Test Item Value Reference Range Interpretation Comments ACTIVATED CLOTTING TIME 466 sec Refe rence Range: (BEAKER) (test code = 74-137 seconds, 441) Baseline/TESTED AT [facility] [address] [facility] [place] [address] Prepare [id number] 13:33:00 Test Item Value Reference Range Interpretation Comments Unit ABO (test code = O Pos [id number]) UNIT NUMBER (test code = [id number] 934-0) Status (test code = RETURNED FROM ISSUE [id number]) Blood Bank Product (test PLATELETS code = 2263) PRODUCT CODE (test code = N3335O97 933-2) [facility] Center[facility], [id number] 13:04:00 Test Item Value Reference Range Interpretation Comments Calcium, Ion (test code = 1993-) 1.14 mmol/L 1.12-1.27 pH, Blood (test code = 65416-4) 7.32 [facility] CenterCALCIUM, [id number] 13:04:00 Test Item Value Reference Range Interpretation Comments CALCIUM IONIZED (BEAKER) (test 1.14 mmol/L 1.12-1.27 code = 698) PH, BLOOD (BEAKER) (test code = 7.32 1810) BLOOD GAS, [id number] 13:04:00 Test Item Value Reference Range Interpretation Comments PH ARTERIAL (BEAKER) (test code = 7.33 7.35-7.45 L 383) PCO2 ARTERIAL (BEAKER) (test code 46 mmHg 35-45 H = 384) PO2 ARTERIAL (BEAKER) (test code 194 mmHg 80-90 H = 385) O2 SATURATION ARTERIAL (BEAKER) 99.3 % 96.0-97.0 H (test code = 386) HCO3 ARTERIAL (BEAKER) (test code 24 mmol/L 21-29 = 388) BASE EXCESS ARTERIAL (BEAKER) -2.5 mmol/L -2.0-3.0 L (test code = 387) PATIENT TEMPERATURE (BEAKER) 36.2 C (test code = 1818) FIO2 (BEAKER) (test code = 1819) 100.0 % GLUCOSE-STAT [id number] 13:04:00 Test Item Value Reference Range Interpretation Comments GLUCOSE RANDOM (BEAKER) (test code 133 mg/dL 70-110 H = 652) HGB/HCT (H&H) - STAT [id number] 13:04:00 Test Item Value Reference Range Interpretation Comments HEMOGLOBIN (BEAKER) (test code = 9.6 g/dL 13.0-16.8 L 410) HEMATOCRIT (BEAKER) (test code = 28.0 % 40.0-50.0 L 411) SODIUM NA-STAT [id number] 13:03:00 Test Item Value Reference Range Interpretation Comments SODIUM (BEAKER) (test code = 381) 140 meq/L 135-148 POTASSIUM-STAT [id number] 13:03:00 Test Item Value Reference Range Interpretation Comments POTASSIUM (BEAKER) (test code = 5.1 meq/L 3.6-5.5 379) Platelet Aggregation: Function [id number] 12:54:00 Test Item Value Reference Range Interpretation Comments Pathologist: (test code Cynthia John, = 2622) (electronic signature) Platelets (test code = 106 150- 450 K/CU MM L 2656) ADP (test code = 71 % 62-100 85058-3) Platelet Rich Plasma 186 200- 300 k/cu mm L (test code = 2134) Plt. Function Screen Normal aggregation Interpretation (test results with ADP. code = 4655) No evidence of platelet dysfunction or P2Y12 inhibitor effect. MARY ELLEN (test code = MARY ELLEN) Platelet Function Screen results may be falsely low with platelet counts<75,000/cu mm.Fine Arts Packer ID - [id number] ID - [id number] ID - [id number] Lab Interpretation (test Abnormal code = 06690-7) [facility] CenterPLATELET AGGREGATION: FUNCTION [id number] 12:54:00 Test Item Value Reference Range Interpretation Comments [id number] Cynthia John, (BEAKER) (test code = (electronic 2622) signature) PLATELET COUNT AGG 106 K/CU MM 150-450 L (BEAKER) (test code = 2656) PLATELET RICH 186 k/cu mm 200-300 L PLASMA(BEAKER) (test code = 2134) PLATELET FUNCTION SCREEN Normal aggregation INTERPRETATION (BEAKER) results with ADP. No (test code = 4655) evidence of platelet dysfunction or P2Y12 inhibitor effect. Platelet Function Screen results may be falsely low with platelet counts<75,000/cu mm.Fine Arts Packer ID- [id number] ID - [id number] ID - [id number] POTASSIUM-STAT [id number] 12:28:00 Test Item Value Reference Range Interpretation Comments POTASSIUM (BEAKER) (test code = 6.3 meq/L 3.6-5.5 HH 379) HGB/HCT (H&H) - STAT [id number] 12:26:00 Test Item Value Reference Range Interpretation Comments HEMOGLOBIN (BEAKER) (test code = 10.7 g/dL 13.0-16.8 L 410) HEMATOCRIT (BEAKER) (test code = 31.0 % 40.0-50.0 L 411) GLUCOSE-STAT [id number] 12:26:00 Test Item Value Reference Range Interpretation Comments GLUCOSE RANDOM (BEAKER) (test code 145 mg/dL 70-110 H = 652) BLOOD GAS, [id number] 12:26:00 Test Item Value Reference Range Interpretation Comments PH ARTERIAL (BEAKER) (test code = 7.32 7.35-7.45 L 383) PCO2 ARTERIAL (BEAKER) (test code 39 mmHg 35-45 = 384) PO2 ARTERIAL (BEAKER) (test code 211 mmHg 80-90 H = 385) O2 SATURATION ARTERIAL (BEAKER) 99.4 % 96.0-97.0 H (test code = 386) HCO3 ARTERIAL (BEAKER) (test code 21 mmol/L 21-29 = 388) BASE EXCESS ARTERIAL (BEAKER) -6.1 mmol/L -2.0-3.0 L (test code = 387) PATIENT TEMPERATURE (BEAKER) 32.9 C (test code = 1818) FIO2 (BEAKER) (test code = 1819) 70.0 % SODIUM NA-STAT [id number] 12:25:00 Test Item Value Reference Range Interpretation Comments SODIUM (BEAKER) (test code = 381) 136 meq/L 135-148 GLUCOSE-STAT [id number] 12:04:00 Test Item Value Reference Range Interpretation Comments GLUCOSE RANDOM (BEAKER) (test code 159 mg/dL 70-110 H = 652) HGB/HCT (H&H) - STAT [id number] 12:04:00 Test Item Value Reference Range Interpretation Comments HEMOGLOBIN (BEAKER) (test code = 10.5 g/dL 13.0-16.8 L 410) HEMATOCRIT (BEAKER) (test code = 31.0 % 40.0-50.0 L 411) POTASSIUM-STAT [id number] 12:04:00 Test Item Value Reference Range Interpretation Comments POTASSIUM (BEAKER) (test code = 6.6 meq/L 3.6-5.5 HH 379) BLOOD GAS, [id number] 12:02:00 Test Item Value Reference Range Interpretation Comments PH ARTERIAL (BEAKER) (test code = 7.36 7.35-7.45 383) PCO2 ARTERIAL (BEAKER) (test code 41 mmHg 35-45 = 384) PO2 ARTERIAL (BEAKER) (test code 298 mmHg 80-90 H = 385) O2 SATURATION ARTERIAL (BEAKER) 99.7 % 96.0-97.0 H (test code = 386) HCO3 ARTERIAL (BEAKER) (test code 25 mmol/L 21-29 = 388) BASE EXCESS ARTERIAL (BEAKER) -2.5 mmol/L -2.0-3.0 L (test code = 387) PATIENT TEMPERATURE (BEAKER) 30.5 C (test code = 1818) FIO2 (BEAKER) (test code = 1819) 70.0 % SODIUM NA-STAT [id number] 12:01:00 Test Item Value Reference Range Interpretation Comments SODIUM (BEAKER) (test code = 381) 135 meq/L 135-148 BLOOD GAS, [id number] 11:19:00 Test Item Value Reference Range Interpretation Comments PH ARTERIAL (BEAKER) (test code = 7.46 7.35-7.45 H 383) PCO2 ARTERIAL (BEAKER) (test code 29 mmHg 35-45 L = 384) PO2 ARTERIAL (BEAKER) (test code 206 mmHg 80-90 H = 385) O2 SATURATION ARTERIAL (BEAKER) 99.5 % 96.0-97.0 H (test code = 386) HCO3 ARTERIAL (BEAKER) (test code 22 mmol/L 21-29 = 388) BASE EXCESS ARTERIAL (BEAKER) -3.4 mmol/L -2.0-3.0 L (test code = 387) PATIENT TEMPERATURE (BEAKER) 30.0 C (test code = 1818) FIO2 (BEAKER) (test code = 1819) 60.0 % SODIUM NA-STAT [id number] 11:19:00 Test Item Value Reference Range Interpretation Comments SODIUM (BEAKER) (test code = 381) 133 meq/L 135-148 L GLUCOSE-STAT [id number] 11:19:00 Test Item Value Reference Range Interpretation Comments GLUCOSE RANDOM (BEAKER) (test code 136 mg/dL 70-110 H = 652) HGB/HCT (H&H) - STAT [id number] 11:19:00 Test Item Value Reference Range Interpretation Comments HEMOGLOBIN (BEAKER) (test code = 10.3 g/dL 13.0-16.8 L 410) HEMATOCRIT (BEAKER) (test code = 30.0 % 40.0-50.0 L 411) POTASSIUM-STAT [id number] 11:18:00 Test Item Value Reference Range Interpretation Comments POTASSIUM (BEAKER) (test code = 5.4 meq/L 3.6-5.5 379) BLOOD GAS, [id number] 09:30:00 Test Item Value Reference Range Interpretation Comments PH ARTERIAL (BEAKER) (test code = 7.41 7.35-7.45 383) PCO2 ARTERIAL (BEAKER) (test code 36 mmHg 35-45 = 384) PO2 ARTERIAL (BEAKER) (test code 353 mmHg 80-90 H = 385) O2 SATURATION ARTERIAL (BEAKER) 99.8 % 96.0-97.0 H (test code = 386) HCO3 ARTERIAL (BEAKER) (test code 23 mmol/L 21-29 = 388) BASE EXCESS ARTERIAL (BEAKER) -2.3 mmol/L -2.0-3.0 L (test code = 387) PATIENT TEMPERATURE (BEAKER) 34.9 C (test code = 1818) FIO2 (BEAKER) (test code = 1819) 100.0 % CALCIUM, [id number] 09:30:00 Test Item Value Reference Range Interpretation Comments CALCIUM IONIZED (BEAKER) (test 1.11 mmol/L 1.12-1.27 L code = 698) PH, BLOOD (BEAKER) (test code = 7.38 1810) GLUCOSE-STAT [id number] 09:30:00 Test Item Value Reference Range Interpretation Comments GLUCOSE RANDOM (BEAKER) (test code 152 mg/dL 70-110 H = 652) HGB/HCT (H&H) - STAT [id number] 09:30:00 Test Item Value Reference Range Interpretation Comments HEMOGLOBIN (BEAKER) (test code = 11.8 g/dL 13.0-16.8 L 410) HEMATOCRIT (BEAKER) (test code = 35.0 % 40.0-50.0 L 411) SODIUM NA-STAT [id number] 09:29:00 Test Item Value Reference Range Interpretation Comments SODIUM (BEAKER) (test code = 381) 138 meq/L 135-148 POTASSIUM-STAT [id number] 09:29:00 Test Item Value Reference Range Interpretation Comments POTASSIUM (BEAKER) (test code = 4.0 meq/L 3.6-5.5 379) [id number] 08:29:37Loren Honeycutt MD - 03/15/2019 8:29 AM CST TEEDate: 03/15/2019 8:29 AM Sex: Male Location: OR Requesting Physician: Sheldon Hernandez MD Examiner: Aayush Rueda MDShaw, Michael Faping Intubated Sedated Patient screened for esoph disease: Yes Insertion: easy Probe Type: multiplane Modalities: CWD, CFM, 2D and PWD Pre Intervention Summary: Aorta: no aneurysm, no dissection, no mobile plaquesAV: trileaflet morphology, no aortic stenosis, no aortic regurgitationLV: normal chamber size , mild LVH, normal systolic function (EF >55% by qualitative assessment), no RWMA, no thrombusMV: normal morphology, mild mitral regurgitation (VC <0.2, ERO 0.04), no mitral stenosisLA: no JIMI thrombus, normal size and functionPV: limited visualization, but trace PI observedRV: normal sized chamber, normal function, no thrombusTV: normal morphology, no tricuspid regurgitationRA: no thrombusNo PFO by color dopper flow and bubble studyAll findings communicated to surgical team. Post Intervention Summary: No aortic dissectionLVEF >55%, no RWMARV function normalNo pericardial effusionCHI Mount Zion CampusBLOOD GAS, ARTERIAL 2019-03-15 08:09:00 Test Item Value Reference Range Interpretation Comments PH ARTERIAL (BEAKER) (test code = 7.53 7.35-7.45 H 383) PCO2 ARTERIAL (BEAKER) (test code 27 mmHg 35-45 L = 384) PO2 ARTERIAL (BEAKER) (test code = 355 mmHg 80-90 H 385) O2 SATURATION ARTERIAL (BEAKER) 99.8 % 96.0-97.0 H (test code = 386) HCO3 ARTERIAL (BEAKER) (test code 23 mmol/L 21-29 = 388) BASE EXCESS ARTERIAL (BEAKER) 0.5 mmol/L -2.0-3.0 (test code = 387) PATIENT TEMPERATURE (BEAKER) (test 36.0 C code = 1818) FIO2 (BEAKER) (test code = 1819) 91.0 % GLUCOSE-STAT [id number] 08:09:00 Test Item Value Reference Range Interpretation Comments GLUCOSE RANDOM (BEAKER) (test code 113 mg/dL 70-110 H = 652) HGB/HCT (H&H) - STAT [id number] 08:09:00 Test Item Value Reference Range Interpretation Comments HEMOGLOBIN (BEAKER) (test code = 11.6 g/dL 13.0-16.8 L 410) HEMATOCRIT (BEAKER) (test code = 34.0 % 40.0-50.0 L 411) SODIUM NA-STAT [id number] 08:05:00 Test Item Value Reference Range Interpretation Comments SODIUM (BEAKER) (test code = 381) 136 meq/L 135-148 POTASSIUM-STAT [id number] 08:05:00 Test Item Value Reference Range Interpretation Comments POTASSIUM (BEAKER) (test code = 3.8 meq/L 3.6-5.5 379) ABORH, [id number] 07:32:00 Test Item Value Reference Range Interpretation Comments ABO Grouping (test code = 2588) O Rh Factor (test code = 2589) POS [facility] CampusBASI METABOLIC [id number] 07:28:00 Test Item Value Reference Range Interpretation Comments SODIUM (BEAKER) 140 meq/L 136-145 (test code = 381) POTASSIUM (BEAKER) 4.2 meq/L 3.5-5.1 (test code = 379) CHLORIDE (BEAKER) 107 meq/L 98-107 (test code = 382) CO2 (BEAKER) (test 26 meq/L 22-29 code = 355) BLOOD UREA NITROGEN 19 mg/dL 7-21 (BEAKER) (test code = 354) CREATININE (BEAKER) 0.80 mg/dL 0.57-1.25 (test code = 358) GLUCOSE RANDOM 109 mg/dL 70-105 H (BEAKER) (test code = 652) CALCIUM (BEAKER) 9.6 mg/dL 8.4-10.2 (test code = 697) EGFR (BEAKER) (test 97 mL/min/1.73 ESTIMA EILSABETH GFR IS code = 1092) sq m NOT ACCURATE CREATININE CLEARANCE IN PREDICTING GLOMERULAR FILTRATION RATE . ESTIMATED GFR I S NOT APPLICABLE FOR DIALYSIS PATIEN TS. Fine Arts Packer ID - JAN MCBC W/PLT COUNT & AUTO [id number] 06:57:00 Test Item Value Reference Range Interpretation Comments WHITE BLOOD CELL COUNT (BEAKER) 5.2 K/ L 3.5-10.5 (test code = 775) RED BLOOD CELL COUNT (BEAKER) 4.44 M/ L 4.63-6.08 L (test code = 761) HEMOGLOBIN (BEAKER) (test code = 12.9 GM/DL 13.7-17.5 L 410) HEMATOCRIT (BEAKER) (test code = 39.5 % 40.1-51.0 L 411) MEAN CORPUSCULAR VOLUME (BEAKER) 89.0 fL 79.0-92.2 (test code = 753) MEAN CORPUSCULAR HEMOGLOBIN 29.1 pg 25.7-32.2 (BEAKER) (test code = 751) MEAN CORPUSCULAR HEMOGLOBIN CONC 32.7 GM/DL 32.3-36.5 (BEAKER) (test code = 752) RED CELL DISTRIBUTION WIDTH 13.4 % 11.6-14.4 (BEAKER) (test code = 412) PLATELET COUNT (BEAKER) (test 100 K/CU MM 150-450 L code = 756) MEAN PLATELET VOLUME (BEAKER) 13.0 fL 9.4-12.4 H (test code = 754) NUCLEATED RED BLOOD CELLS 0 /100 WBC 0-0 (BEAKER) (test code = 413) NEUTROPHILS RELATIVE PERCENT 65 % (BEAKER) (test code = 429) LYMPHOCYTES RELATIVE PERCENT 21 % (BEAKER) (test code = 430) MONOCYTES RELATIVE PERCENT 11 % (BEAKER) (test code = 431) EOSINOPHILS RELATIVE PERCENT 2 % (BEAKER) (test code = 432) BASOPHILS RELATIVE PERCENT 1 % (BEAKER) (test code = 437) NEUTROPHILS ABSOLUTE COUNT 3.35 K/ L 1.78-5.38 (BEAKER) (test code = 670) LYMPHOCYTES ABSOLUTE COUNT 1.10 K/ L 1.32-3.57 L (BEAKER) (test code = 414) MONOCYTES ABSOLUTE COUNT (BEAKER) 0.57 K/ L 0.30-0.82 (test code = 415) EOSINOPHILS ABSOLUTE COUNT 0.11 K/ L 0.04-0.54 (BEAKER) (test code = 416) BASOPHILS ABSOLUTE COUNT (BEAKER) 0.05 K/ L 0.01-0.08 (test code = 417) IMMATURE GRANULOCYTES-RELATIVE 0 % 0-1 PERCENT (BEAKER) (test code = 2801) POC-Glucose [id number] 06:20:00 Test Item Value Reference Range Interpretation Comments POC-Glucose Meter (test 105 mg/dL 70-110 : TE STED AT [facility] code = 1538) [address] [facility], [address]: Fine Arts Packer/Techni trever ID = [id number] for JOHNATHAN JASSO AL Lab Interpretation (test Normal code = 68437-0) [facility] CenterPOCT-GLUCOSE [id number] 06:20:00 Test Item Value Reference Range Interpretation Comments POC-GLUCOSE METER 105 mg/dL 70-110 : TESTED A T [facility] [address] (BEAKER) (test code [facility], = 1538) [address]: Fine Arts Packer/Techni trever ID = [id number] for ISAAK KIMBROUGH Hepatitis B [id number] 16:09:00 Test Item Value Reference Range Interpretation Comments Hep B Core Total Ab Nonreactive Nonreactive (test code = 43718-7) Hep B S Ab (test code = <8.0 <8.0 mIU/mL 51646-8) HBsAg Screen (test code Nonreactive Nonreactive = 5195-3) MARY ELLEN (test code = MARY ELLEN) Fine Arts Packer ID - KAY MOperator ID - BSOperator ID - BS Lab Interpretation (test Normal code = 54631-6) [facility] CenterHEPATITIS B [id number] 16:09:00 Test Item Value Reference Range Interpretation Comments HEPATITIS B CORE TOTAL ANTIBODY Nonreactive Nonreactive (BEAKER) (test code = 497) HEPATITIS B SURFACE ANTIBODY < mIU/mL <8.0 (BEAKER) (test code = 647) HEPATITIS B SURFACE ANTIGEN (2) Nonreactive Nonreactive (BEAKER) (test code = 2585) Fine Arts Packer ID - KAY MOperator ID - BSOperator ID - BSPLATELET AGGREGATION: FUNCTION [id number] 14:03:00 Test Item Value Reference Range Interpretation Comments [id number] Norberto Gardner MD (BEAKER) (test code = (electronic 2622) signature) PLATELET COUNT AGG 82 K/CU MM 150-450 L (BEAKER) (test code = 2656) PLATELET RICH 125 k/cu mm 200-300 L PLASMA(BEAKER) (test code = 2134) PLATELET FUNCTION SCREEN Decreased aggregation INTERPRETATION (BEAKER) with ADP which (test code = 4655) indicates platelet dysfunction that may be due to medication effect, uremia, or other platelet function disorders. Clinical correlation is required. PLATELET FUNCTION SCREEN When platelet rich INTERPRETATION (BEAKER) plasma count is (test code = 251898) <200,000/mm3, an abnormal result may be due to a low platelet count rather than a true platelet dysfunction. Platelet Function Screen results may be falsely low with platelet counts<75,000/cu mm.Fine Arts Packer ID- 6000Hepatitis C [id number] 13:31:00 Test Item Value Reference Range Interpretation Comments Hepatitis C Ab (test Nonreactive Nonreactive code = 57272-1) MARY ELLEN (test code = MARY ELLEN) Fine Arts Packer ID - KAY Wilson Lab Interpretation (test Normal code = 63954-3) [facility] CenterHIV-1 Antigen with HIV-1/2 [id number] 13:31:00 Test Item Value Reference Range Interpretation Comments HIV-1 Antigen with HIV Nonreactive Nonreactive 1&2 Antibody (test code = 13290-4) AMRY ELLEN (test code = MARY ELLEN) Fine Arts Packer ID Irlanda Wilson Lab Interpretation (test Normal code = 63717-2) [facility] CenterHEPATITIS C [id number] 13:31:00 Test Item Value Reference Range Interpretation Comments HEPATITIS C ANTIBODY (BEAKER) Nonreactive Nonreactive (test code = 367) Fine Arts Packer ID - KAY MHIV-1 ANTIGEN WITH HIV-1/2 [id number] 13:31:00 Test Item Value Reference Range Interpretation Comments HIV-1 ANTIGEN WITH HIV 1\\T\\2 Nonreactive Nonreactive ANTIBODY (2) (MARISOL) (test code = 2586) Fine Arts Packer ID - KAY MType and screen, [id number] 12:20:00 Test Item Value Reference Range Interpretation Comments ABO/RH AUTOMATED (MARISOL) (test O POSITIVE code = 2260) Ab Scrn (test code = 890-4) NEGATIVE [facility], 2 [id number] 12:16:00Reason for exam:->SURGRYFINAL REPORT TECHNIQUE: Frontal and lateral chest radiographs dated 03/08/2019. CLINICAL HISTORY: Surgery COMPARISON STUDY: None FINDINGS: Lungs are clear. No pleural effusion or pneumothorax. Cardiomediastinal silhouette is normal in size. No pulmonary edema. Mild degenerativechanges are seen in the spine. IMPRESSION: Clear lungs. Signed: Elsa Nascimentoort Verified Date/Time: 03/08/2019 12:16:29 Reading Location: [facility] Reading Room XR chest 2 [id number] 12:16:00Interface, External Ris In - 03/08/2019 12:18 PM CSTFINAL REPORT TECHNIQUE: Frontal and lateral chest radiographs dated 03/08/2019. CLINICAL HISTORY: Surgery COMPARISON STUDY: None FINDINGS: Lungs are clear. No pleural effusion or pneumothorax. Cardiomediastinal silhouette is normal in size. No pulmonary edema. Mild degenerative changes are seen in the spine. IMPRESSION: Clear lungs. Signed: Elsa Nascimento Verified Date/Time: 03/08/2019 12:16:29 Reading Location: [facility] Mammo Reading Room [facility] [id number] 12:03:00 Test Item Value Reference Range Interpretation Comments Lipase (test code = <4 8-78 L 3040-3) MARY ELLEN (test code = MARY ELLEN) Fine Arts Packer ID - KAY Wilson Lab Interpretation (test Abnormal code = 24438-6) [facility] CenterLIPASE2020-01-28 12:03:00 Test Item Value Reference Range Interpretation Comments LIPASE (BEAKER) (test code = 749) < U/L 8-78 L Fine Arts Packer ID - KAY epatic function [id number] 11:51:00 Test Item Value Reference Range Interpretation Comments Protein, Total (test code 6.5 6.0- 8.3 gm/dL = 2885-2) Albumin (test code = 4.1 g/dL 3.5-5 00561-3) Total Bilirubin (test code 0.6 mg/dL 0.2-1.2 = 1974-2) Bilirubin, Direct (test 0.4 mg/dL 0.1-0.5 code = 1967-7) Alkaline Phosphatase (test 65 U/L 40-150 code = 6768-6) AST (test code = 1920-8) 17 U/L 5-34 ALT (test code = 1742-6) 13 U/L 6-55 MARY ELLEN (test code = MARY ELLEN) Fine Arts Packer ID Irlanda Wilson Lab Interpretation (test Normal code = 14456-0) [facility] CenterAmylase2020-01-28 11:51:00 Test Item Value Reference Range Interpretation Comments Amylase (test code = 55 U/L 25-125 1798-8) MARY ELLEN (test code = MARY ELLEN) Fine Arts Packer ID Irlanda VILLANUEVA Lab Interpretation (test Normal code = 53828-3) [facility] CenterLactate dehydrogenase (LDH)2019-03-08 11:51:00 Test Item Value Reference Range Interpretation Comments LDH (test code = 2532-0) 217 U/L 125-220 MARY ELLEN (test code = MARY ELLEN) Fine Arts Packer ID Irlanda VILLANUEVA Lab Interpretation (test Normal code = 63986-9) [facility] CenterAMYLASE2020-01-28 11:51:00 Test Item Value Reference Range Interpretation Comments AMYLASE (BEAKER) (test code = 349) 55 U/L 25-125 Fine Arts Packer ID Irlanda VILLANUEVA ASIC METABOLIC [id number] 11:51:00 Test Item Value Reference Range Interpretation Comments SODIUM (BEAKER) 139 meq/L 136-145 (test code = 381) POTASSIUM (BEAKER) 4.1 meq/L 3.5-5.1 (test code = 379) CHLORIDE (BEAKER) 108 meq/L 98-107 H (test code = 382) CO2 (BEAKER) (test 28 meq/L 22-29 code = 355) BLOOD UREA NITROGEN 12 mg/dL 7-21 (BEAKER) (test code = 354) CREATININE (BEAKER) 0.76 mg/dL 0.57-1.25 (test code = 358) GLUCOSE RANDOM 101 mg/dL 70-105 (BEAKER) (test code = 652) CALCIUM (BEAKER) 8.7 mg/dL 8.4-10.2 (test code = 697) EGFR (BEAKER) (test 103 mL/min/1.73 ESTIM ATED GFR IS code = 1092) sq m NOT ACCURATE CREATININE CLEARANCE IN PREDICTING GLOMERULAR FILTRATION RATE . ESTIMATED GFR I S NOT APPLICABLE FOR DIALYSIS PATIEN TS. Fine Arts Packer ID Irlanda KAY MHEPATIC FUNCTION [id number] 11:51:00 Test Item Value Reference Range Interpretation Comments TOTAL PROTEIN (BEAKER) (test code = 6.5 gm/dL 6.0-8.3 770) ALBUMIN (BEAKER) (test code = 1145) 4.1 g/dL 3.5-5.0 BILIRUBIN TOTAL (BEAKER) (test code 0.6 mg/dL 0.2-1.2 = 377) BILIRUBIN DIRECT (BEAKER) (test 0.4 mg/dL 0.1-0.5 code = 706) ALKALINE PHOSPHATASE (BEAKER) (test 65 U/L 40-150 code = 346) AST (SGOT) (BEAKER) (test code = 17 U/L 5-34 353) ALT (SGPT) (BEAKER) (test code = 13 U/L 6-55 347) Fine Arts Packer ID Irlanda KAY MLACTATE DEHYDROGENASE (LDH)2019-03-08 11:51:00 Test Item Value Reference Range Interpretation Comments LACTATE DEHYDROGENASE (BEAKER) (test 217 U/L 125-220 code = 635) Fine Arts Packer ID Irlanda KAY [id number] 11:37:00 Test Item Value Reference Range Interpretation Comments PARTIAL THROMBOPLASTIN TIME 30.7 seconds 22.5-36.0 (BEAKER) (test code = 760) PROTHROMBIN TIME/[id number] 11:36:00 Test Item Value Reference Range Interpretation Comments PROTIME (BEAKER) (test code = 14.3 seconds 11.9-14.2 H 759) INR (BEAKER) (test code = 370) 1.1 <=5.9 Effective 07/07/2018: PT Reference Range ChangeNew: 11.9-14.2 Previous: 11.7- 14.7RECOMMENDED COUMADIN/WARFARIN INR THERAPY RANGESSTANDARD DOSE: 2.0-3.0 Includes: PROPHYLAXIS for venous thrombosis, systemic embolization; TREATMENT for venous thrombosis and/or pulmonary embolus.HIGH RISK: Target INR is2.5-3.5 for patients wiht mechanical heart valves.Reticulocyte [id number] 11:29:00 Test Item Value Reference Range Interpretation Comments % Retic (test code = 1.7 % 0.5-1.8 92389-3) MARY ELLEN (test code = MARY ELLEN) [employer] Packer ID - [id number] Lab Interpretation (test Normal code = 04478-8) [id number] 11:29:00 Test Item Value Reference Range Interpretation Comments RETICULOCYTE COUNT PCT (BEAKER) (test 1.7 % 0.5-1.8 code = 575) [employer] Packer ID - [id number] W/PLT COUNT & AUTO [id number] 11:29:00 Test Item Value Reference Range Interpretation Comments WHITE BLOOD CELL COUNT (BEAKER) 4.2 K/ L 3.5-10.5 (test code = 775) RED BLOOD CELL COUNT (BEAKER) 3.78 M/ L 4.63-6.08 L (test code = 761) HEMOGLOBIN (BEAKER) (test code = 11.3 GM/DL 13.7-17.5 L 410) HEMATOCRIT (BEAKER) (test code = 34.2 % 40.1-51.0 L 411) MEAN CORPUSCULAR VOLUME (BEAKER) 90.5 fL 79.0-92.2 (test code = 753) MEAN CORPUSCULAR HEMOGLOBIN 29.9 pg 25.7-32.2 (BEAKER) (test code = 751) MEAN CORPUSCULAR HEMOGLOBIN CONC 33.0 GM/DL 32.3-36.5 (BEAKER) (test code = 752) RED CELL DISTRIBUTION WIDTH 13.6 % 11.6-14.4 (BEAKER) (test code = 412) PLATELET COUNT (BEAKER) (test code 81 K/CU MM 150-450 L = 756) MEAN PLATELET VOLUME (BEAKER) 13.4 fL 9.4-12.4 H (test code = 754) NUCLEATED RED BLOOD CELLS (BEAKER) 0 /100 WBC 0-0 (test code = 413) NEUTROPHILS RELATIVE PERCENT 70 % (BEAKER) (test code = 429) LYMPHOCYTES RELATIVE PERCENT 18 % (BEAKER) (test code = 430) MONOCYTES RELATIVE PERCENT 9 % (BEAKER) (test code = 431) EOSINOPHILS RELATIVE PERCENT 3 % (BEAKER) (test code = 432) BASOPHILS RELATIVE PERCENT 1 % (BEAKER) (test code = 437) NEUTROPHILS ABSOLUTE COUNT 2.96 K/ L 1.78-5.38 (BEAKER) (test code = 670) LYMPHOCYTES ABSOLUTE COUNT 0.74 K/ L 1.32-3.57 L (BEAKER) (test code = 414) MONOCYTES ABSOLUTE COUNT (BEAKER) 0.36 K/ L 0.30-0.82 (test code = 415) EOSINOPHILS ABSOLUTE COUNT 0.13 K/ L 0.04-0.54 (BEAKER) (test code = 416) BASOPHILS ABSOLUTE COUNT (BEAKER) 0.03 K/ L 0.01-0.08 (test code = 417) IMMATURE GRANULOCYTES-RELATIVE 0 % 0-1 PERCENT (BEAKER) (test code = 2801)
== END 2019-11-11 22:30 | disposition home or self-care (01) ==
LOC: ER 19:59
DX: I10 Essential (primary) hypertension (principal); E78.00 Pure hypercholesterolemia, unspecified; Z95.1 Presence of aortocoronary bypass graft
CPT/HCPCS: 36415; 71045; 80048; 80076; 81003; 83690; 83735; 83880; 84484; 85025; 93005; 99284

== ENCOUNTER 2021-12-06 15:20 | Emergency (ER) | payer OTHER ==
--- OUTSIDE RECORDS SUMMARY | 2021-12-06 15:26 | XMS REPORT | Continuity of Care Document ---
:1950 Author Organization [facility] t Address [address] [place] [address] Care Team Providers Name Role Phone OMKAR CHOI Primary Care Physician Unavailable Doctor Unassigned, [facility] Attending Clinician Unavailable SHELDON HERNANDEZ Attending Clinician Unavailable ANDREA JIMÉNEZ Attending Clinician Unavailable SHELDON HERNANDEZ Admitting Clinician Unavailable ANDREA JIMÉNEZ Admitting Clinician Unavailable Payers Payer Name Policy Type Policy Number Effective Date Expiration Date S ource Problems Condition Condition Condition Status Onset Resolution Last Treating Co mments Source Name Details Category Date Date Treatment Clinician Date Urinary Urinary Disease Active 2020-[address] [facility] retention retention 2-07 [facility] 00:00: Medical 00 Center Former Former Disease Active 2020-[address] [facility] smoker smoker 2-04 [facility] (quit (quit 00:[facility]: Medical 1985) 1984) 00 Center GERD GERD Disease Active 2020-[address] [facility] (gastroeso (gastroeso 2-04 Barbara kes phageal phageal 00:00: Medical reflux reflux 00 Center disease) disease) CVA CVA Disease Active 2020-[address] [facility] (cerebral (cerebral 2-04 [facility] vascular vascular 00:00: Medica l accident) accident) 00 Cent er with with residual residual short term short term memory memory problems problems and and generalize generalize d weakness d weakness (2015) (2015) ETOH abuse ETOH abuse Disease Active [facility] (liquor/be (liquor/be 2-04 Barbara kes er/wine er/wine 00:00: Medical 14 14- 00 Center drinks per drinks per week, "3 week, "3 tequila tequila drinks a drinks a day - day - stopped 8 stopped 8 days ago") days ago") H/O H/O Disease Active [facility] 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 00 Cent er S/P skin S/P skin cancer cancer excision excision HLD HLD Disease Active [facility] (hyperlipi (hyperlipi 2-04 Barbara kes demia) demia) 00:00: [address] Thrombocyt Thrombocyt Disease Active [facility] openia (on openia (on 2-04 Barbara kes Plavix) Plavix) 00:00: [address] Acute Acute Disease Active [facility] blood loss blood loss 2-04 Barbara kes anemia anemia 00:00: [facility] 00 [place] Coronary Coronary Disease Active [facility] artery artery 1-24 [facility] disease disease 00:00: Medical s/p CABG x s/p CABG x 00 Ce nter 3 3 (CHARLENE-RCA, (CHARLENE-RCA, CURRAN-LAD, CURRAN-LAD, SVG-ramus) SVG-ramus) by by Dr. Abigail Hernandez 03/15/2019 03/15/2019 History of History of Disease Active 2018-02 U nivers arterial arterial 2-06 ity of ischemic ischemic 00:00: [place] stroke stroke 00 Medical Branch Essential Essential Disease Active 2018-02 Uni vers hypertensi hypertensi 2-06 it y of on on 00:00: [place] [id number] Medical Branch Other Other Disease Active 2018-02 Univers hyperlipid hyperlipid 2-06 it y of emia emia 00:00: [place] 00 Medical Branch H/O STEMI H/O STEMI Disease Active 2018-[address] [facility] (ST (ST 2-06 [facility] elevation elevation 00:00: [facility] elis myocardial myocardial 00 Ce nter infarction infarction ) (HCC) ) (HCC) ( ( 9) 9) HTN HTN Disease Active 2018-[address] [facility] (hypertens (hypertens 2-06 Barbara kes ion), ion), 00:00: Medical chronic chronic 00 Center arterial arterial Chest pain Chest pain Disease Active 2018-02 U nivers 2-05 ity of 00:00: [place] [facility] Allergies, Adverse Reactions, Alerts Allergy Allergy Status Severity Reaction(s) Onset Inactive Treating Comm ents Source Name Type Date Date Clinician Other Propensi Active Nausea And Allergic [facility] ty to Vomiting 03-03 to pre op [facility] adverse 00:00: medicatio Medica l reaction 00 n, Center s unknown name. Will bring name on dos NO KNOWN Drug Active Univers ALLERGIE Class ity of S [facility] Family History Family Member Diagnosis Comments Start Date Stop Date Source Natural father Heart disease [facility] Center Natural mother Stroke [facility] Meli es [facility] Center Social History Social Habit Start Date Stop Date Quantity Comments Source History SDPR [facility] Alcohol Binge Medical Nial[facility] History of tobacco Current smoker [facility] use Medical Center History SDPR [facility] Alcohol Frequency Medical Center History [facility] Alcohol Std Drinks Medica l Center Alcohol intake 2019-03-15 2019-03-15 [facility]er [facility] 00:[facility]:00 of alcohol Medical Center (finding) History SDPR 2019-03-03 2019-03-03 liquor/beer/wine [facility] Alcohol Comment 00:00:00 00:00:00 14-21 drinks per Med ical Center week Tobacco use and 2019-03-03 2019-03-[address] [facility] exposure 00:00:00 00:00:00 Medical Center Cigarettes smoked 2019-01-17 2019-01-17 Univers ity of current (pack per 00:00:00 00:00:00 [facility] ) - Reported Branch Cigarette 2019-01-17 2019-01-17 University of pack-years 00:00:00 00:00:00 [place] [facility] History SDOH 2019-01-14 2019-01-14 5 University o f Financial 00:00:00 00:00:00 [place] [facility] History [facility] Food 2019-01-14 2019-01-14 1 Univers ity of Worry 00:00:00 00:00:00 [facility] Branch History [facility] Food 2019-01-14 2019-01-14 1 Univers ity of Scarcity 00:00:00 00:00:00 [place] [facility] History SDOH 2019-01-14 2019-01-14 2 University o f Transport Med 00:00:00 00:00:00 [place] Medic al Branch History [facility] 2019-01-14 2019-01-14 2 University o f Transport Non-Med 00:00:00 00:00:00 [facility] edical Branch Sex [birth year] CHASE Licona kes 00:00:00 00:00:00 Medical Center Smoking Status Start Date Stop Date Source Former smoker 2019-01-17 00:00:00 2019-01-17 00:00:00 [facility] Medications Ordered Filled Start Stop Current Ordering Indication Dosage Frequency Signature Comments Components Source Medication Medication Date Date Medication? Clinician (SIG) Name Name sertraline Yes 100mg QD Take [address] (ZOLOFT) 2-10 mg by [facility] 100 MG 13:35: mouth Medical tablet 58 daily. [place] HYDROcodone Yes 1{tbl} Take [address] -acetaminop 2-10 tablet by Meli brooks (NORCO 13:35: mouth Medica l 10-325) 58 every 6 Center 10-325 mg (six) per tablet hours as needed for Pain. melatonin Yes QD Take by [facility] t 10 mg Cap 2-10 mouth [facility] 13:35: nightly Medical 58 1-2 tabs . Center aspirin 81 2018-02 Yes [id number] 81mg Take 1 U nivers mg chewable 2-11 tablet by ity of tablet 00:00: mouth [place] 00 daily. Medical Branch atorvastati 2018-02 Yes [id number] 80mg Take 1 Univers n 80 mg 2-11 tablet by ity of tablet 00:00: mouth [place] 00 daily. Medical Branch isosorbide 2018- Yes [id number] 30mg Take 1 U nivers mononitrate 2-11 tablet by ity of 30 mg 24 hr 00:00: mouth [place] tablet 00 daily. Medical Branch SERTraline 2018-02 Yes [id number] 100mg Take 1 Univers 100 mg 2-11 tablet by ity of tablet 00:00: mouth [place] 00 daily. Medical Branch aspirin 81 2018-02 Yes [id number] 81mg Take 1 U nivers mg chewable 2-11 tablet by ity of tablet 00:00: mouth [place] 00 daily. Medical Branch atorvastati 2018-02 Yes [id number] 80mg Take 1 Univers n 80 mg 2-11 tablet by ity of tablet 00:00: mouth [place] 00 daily. Medical Branch isosorbide 2018-02 Yes [id number] 30mg Take 1 U nivers mononitrate 2-11 tablet by ity of 30 mg 24 hr 00:00: mouth [place] tablet 00 daily. Medical Branch SERTraline 2018-02 Yes [id number] 100mg Take 1 Univers 100 mg 2-11 tablet by ity of tablet 00:00: mouth [place] 00 daily. Medical Branch carvedilol 2018-02 Yes [id number] 12.5mg Take 1 Univers 12.5 mg 2-10 tablet by ity of tablet 00:00: mouth 2 [place] 00 (two) Medical times Branch daily with meals. tiZANidine 2018-02 Yes [id number] 4mg Take 1 U nivers 4 mg tablet 2-10 tablet by ity of 00:00: mouth at [place] 00 bedtime. Medical Branch clopidogrel 2018-02 Yes [id number] 75mg Take 1 Univers 75 mg 2-10 tablet by ity of tablet 00:00: mouth [place] 00 daily. Medical Branch nitroglycer 2018-[id number] 1 Univers in 0.4 mg 2-10 tablet ity of sublingual 00:00: [place] tablet 00 tongue Medical every 5 Branch (five) minutes as needed for Chest pain. carvedilol 2018-02 Yes [id number] 12.5mg Take 1 Univers 12.5 mg 2-10 tablet by ity of tablet 00:00: mouth 2 [place] 00 (two) Medical times Branch daily with meals. tiZANidine 2018-02 Yes [id number] 4mg Take 1 U nivers 4 mg tablet 2-10 tablet by ity of 00:00: mouth at [place] 00 bedtime. Medical Branch clopidogrel 2018-02 Yes [id number] 75mg Take 1 Univers 75 mg 2-10 tablet by ity of tablet 00:00: mouth [place] 00 daily. Medical Branch nitroglycer 2018-[id number] 1 Univers in 0.4 mg 2-10 tablet ity of sublingual 00:00: [place] tablet 00 tongue Medical every 5 Branch (five) minutes as needed for Chest pain. Procedures Procedure Date / Time Performing Clinician Source Performed AUTHORIZATION FOR 2019-03-31 06:01:00 Doctor Unassigned, No [facility] [place] RELEASE OF PHI Name Medical Branch REFERRAL- 2019-03-07 06:01:00 [facility]igned, [facility] Name [facility] Plan of Care Planned Activity Planned Date Details Comments Source Future Scheduled 2021-10-10 INFLUENZA VACCINE (#1) [facility] 00:00:00 [code = INFLUENZA Medical Ce nter VACCINE (#1)] Future Scheduled 2021-02-[address] [facility] Test 00:00:00 (12+) [code = Medical Center DEPRESSION SCREENING (12+)] Future Scheduled 2021-02-09 FALLS RISK SCREENING [facility] Test 00:00:00 [code = FALLS RISK Medical C enter SCREENING] Future Scheduled 2020-02-[address] [facility] Test 00:00:00 WELLNESS (YEAR 2 or Medical Center FIRST YEAR if no IPPE) [code = MEDICARE ANNUAL WELLNESS (YEAR 2 or FIRST YEAR if no IPPE)] Future Scheduled 2002 SHINGLES VACCINES ([address] [facility] Test 00:00:00 2) [code = SHINGLES Medical Center VACCINES (1 of 2)] Future Scheduled 1971-06-28 DTAP/TDAP/TD VACCINES [facility] Test 00:00:00 (1 - Tdap) [code = Medical C enter DTAP/TDAP/TD VACCINES (1 - Tdap)] Future Scheduled 1958 PNEUMOCOCCAL 65+ YRS ([address] [facility] Test 00:00:00 - PCV) [code = Medical Cente r PNEUMOCOCCAL 65+ YRS (1 - PCV)] Future Scheduled 1950 COVID-19 VACCINE (#1) [facility] Test 00:00:00 [code = COVID-[address] VACCINE (#1)] Future Scheduled 1952 CT Colonography (combo) [facility] Test 00:00:00 [code = CT Colonography [facility] (combo)] Future Scheduled 1952 Screening for malignant [facility] Test 00:00:00 neoplasm of colon Medical Ce nter (procedure) [code = 569600092] Future Scheduled 1952 Screening for malignant [facility] Test 00:00:00 neoplasm of colon Medical Ce nter (procedure) [code = 387201010] Future Scheduled 1952 Screening for malignant [facility] Test 00:00:00 neoplasm of colon Medical Ce nter (procedure) [code = 939680708] Future Scheduled 1952 Screening for malignant [facility] Test 00:00:00 neoplasm of colon Medical Ce nter (procedure) [code = 850049046] Future Scheduled 1950 Sigmoidoscopy [code = [facility] Test 00:00:00 Sigmoidoscopy] Medical Cente r Encounters Start End Encounter Admission Attending Care Care Encounter Source Date/Time Date/Time Type Type Clinicians Facility Department ID 2019-03-31 2019-03-31 Orders Doctor MISTY [id number] Univers 00:00:00 00:00:00 Only Unassigned, CARL [id number] ity of [facility] [id number] Andrea as [phone] [address] 2019-03-31 2019-03-31 Orders Doctor JAY [id number] 00:00:00 00:00:00 Only Unassigned, CARL [id number] [facility] [id number] 2019-03-07 2019-03-07 Orders Doctor MISTY [id number] Univers 00:00:00 00:00:00 Only Unassigned, CARL [id number] ity of [facility] [id number] Andrea as [phone] [address] 2019-03-07 2019-03-07 Orders Doctor MISTY [id number] 00:00:00 00:00:00 Only Unassigned, CARL [id number] [facility] [id number] [id number] 2019-01-13 2019-01-18 Inpatient X JESSY [facility] [id number] Univers 19:50:26 16:00:00 ANDREA rodríguez of [facility] Results Test Description Test Time Test Comments Results Result Sourc e Comments TISSUE EXAM 2019-03-12 Surgical Pathology Report 0 Case: [id number] Authorizing 16:54:00 Provider: Sheldon Hernandez, Collected: 03/15/2019 1209 Ordering Location: [facility] BERNADINE MENDOZA Received: 03/16/2019 0858 [employer] Pathologist: Ángel Haji MD Specimen: Plaque, Right Coronary Artery Plaque ARTERY, RIGHT CORONARY, ENDARTERECTOMY:CALCIFIC ATHEROSCLEROTIC PLAQUE Signing Pathologist Direct Phone Line: [phone] signed by Ángel Haji MD on 03/21/2019 at 4:54 [id number]; [id number] diagnosis: Coronary artery disease without angina pectorisPlaqueReceived in formalin labeled with the patient's name, accession number and "right coronary artery plaque" is a 7.0 cm in length x 0.3 cm in diameter flores-yellow tubular piece of focally calcified plaque. Research Epidemiologist sections are submitted in A1 following decalcification/ PA/pl Performed BASIC METABOLIC PANEL 2019-03-21 05:34:00 Test Item Value Reference Range Interpretation Comme nts SODIUM (BEAKER) (test code 135 meq/L 136-145 L = 381) POTASSIUM (BEAKER) (test 3.6 meq/L 3.5-5.1 code = 379) CHLORIDE (BEAKER) (test 101 meq/L 98-107 code = 382) CO2 (BEAKER) (test code = 27 meq/L 22-29 355) BLOOD UREA NITROGEN 16 mg/dL 7-21 (BEAKER) (test code = 354) CREATININE (BEAKER) (test 0.66 mg/dL 0.57-1.25 code = 358) GLUCOSE RANDOM (BEAKER) 107 mg/dL 70-105 H (test code = 652) CALCIUM (BEAKER) (test 7.9 mg/dL 8.4-10.2 L code = 697) EGFR (BEAKER) (test code = 121 mL/min/1.73 sq m ESTIMATED GFR IS NOT 1092) ACCURATE CRE ATININE CLEARANCE IN MT EDICTING GLOMERULAR FILT RATION RATE. ESTIMATED GFR IS NOT APPLICABLE FOR DIALYSIS PATIENTS. Human Resource Statistician ID - SERGEY [id number] 05:26:00 Test Item Value Reference Range Interpretation Comments PHOSPHORUS (BEAKER) (test code = 2.8 mg/dL 2.3-4.7 604) Human Resource Statistician ID - SERGEY [id number] 05:26:00 Test Item Value Reference Range Interpretation Comments MAGNESIUM (BEAKER) (test code = 1.9 mg/dL 1.6-2.6 627) Human Resource Statistician ID - SERGEY [id number] 05:00:00 Test Item Value Reference Range Interpretation Comments PARTIAL THROMBOPLASTIN TIME 30.2 seconds 22.5-36.0 (BEAKER) (test code = 760) PROTHROMBIN [id number] 04:58:00 Test Item Value Reference Range Interpretation [...] is 2.5-3.5 for patients wiht mechanical heart valves.CBC (HEMOGRAM ONLY)2019-03-21 04:53:00 Test Item Value Reference [...] = 413) RAD, CHEST, 1 VIEW, NON [id number] 04:31:00Reason for exam:->Post-opShould this be performed at [...] small right apical pneumothorax. Signed: Brendan Springer [facility] Verified Date/Time: 03/21/2019 04:31:32 [id number] 05:46:00 Test Item Value Reference Range Interpretation Comments PHOSPHORUS (BEAKER) (test code = 2.1 mg/dL 2.3-4.7 L 604) Human Resource Statistician ID - SERGEY [id number] 05:46:00 Test Item Value Reference Range Interpretation Comments MAGNESIUM (BEAKER) (test code = 2.1 mg/dL 1.6-2.6 627) Human Resource Statistician ID - SERGEY WBASIC METABOLIC [id number] 05:46:00 Test Item Value Reference Range Interpretation [...] S NOT APPLICABLE FOR DIALYSIS PATIEN TS. Human Resource Statistician ID - SERGEY [id number] 04:56:00 Test Item Value Reference Range Interpretation Comments PARTIAL THROMBOPLASTIN TIME 32.1 seconds 22.5-36.0 (BEAKER) (test code = 760) PROTHROMBIN [id number] 04:55:00 Test Item Value Reference Range Interpretation [...] is 2.5-3.5 for patients wiht mechanical heart valves.CBC (HEMOGRAM [...] WBC 0-0 (BEAKER) (test code = 413) BASIC METABOLIC [id number] 06:13:00 Test Item Value Reference Range Interpretation [...] S NOT APPLICABLE FOR DIALYSIS PATIEN TS. Human Resource Statistician ID - JAN [id number] 06:13:00 Test Item Value Reference Range Interpretation Comments PHOSPHORUS (BEAKER) (test code = 1.6 mg/dL 2.3-4.7 L 604) Human Resource Statistician ID - JAN [id number] 06:13:00 Test Item Value Reference Range Interpretation Comments MAGNESIUM (BEAKER) (test code = 2.2 mg/dL 1.6-2.6 627) Human Resource Statistician ID Irlanda MONTOYA MPROTHROMBIN [id number] 05:34:00 Test Item Value Reference Range Interpretation [...] is 2.5-3.5 for patients wiht mechanical heart valves.[id number] 05:34:00 Test Item Value Reference Range Interpretation [...] = 413) RAD, CHEST, 1 VIEW, NON [id number] 13:49:00Reason for exam:->chest tube removalShould this be performed at the bedside?->YesFINAL REPORT RAD, CHEST, 1 VIEW, NON DEPT INDICATION: chest tube removal COMPARISON: Earlier same day FINDINGS: Portable frontal view of the chest. IMPRESSION: Support Lines: RightIJ catheter and chest tubes are unchanged. Mediastinal drain. Sternotomy wires Lungs and pleura: Retrocardiac atelectasis is unchanged . Small left apical pneumothorax.Heart and mediastinum: Stable contours. Stable surgical changes.Additional findings: None Small left apical pneumothorax status post removal of chest tube. Signed: London Wade Verified Date/Time: 03/18/2019 13:49:41 Reading Location: [facility] Radiology Reading Room , CHEST, 1 VIEW, NON [id number] 09:23:00Reason for exam:- >IntubationShould this be performed at the bedside?->YesFINAL REPORT RAD, CHEST, 1 VIEW, NON DEPT INDICATION: Intubation COMPARISON: Prior day's exam FINDINGS: Portable frontal view of the chest. IMPRESSION: Support Lines: Right IJ catheter and chest tubes are unchanged. Mediastinal drain. Sternotomy wires Lungs and pleura: Retrocardiac atelectasis is unchanged No pneumothorax.Heart and mediastinum: Stable contours. Stable surgical changes.Additional findings: None. Signed: London Wade Verified Date/Time: 03/18/2019 09:23:34 Reading Location: [facility] Radiology Reading Room [id number] 05:06:00 Test Item Value Reference Range Interpretation Comments PHOSPHORUS (BEAKER) (test code = 2.2 mg/dL 2.3-4.7 L 604) Human Resource Statistician ID - JAN [id number] 05:06:00 Test Item Value Reference Range Interpretation Comments MAGNESIUM (BEAKER) (test code = 2.6 mg/dL 1.6-2.6 627) Human Resource Statistician ID - JAN MBASIC METABOLIC [id number] 05:06:00 Test Item Value Reference Range Interpretation [...] S NOT APPLICABLE FOR DIALYSIS PATIEN TS. Human Resource Statistician ID - JAN MPROTHROMBIN [id number] 04:42:00 Test Item Value Reference Range Interpretation [...] is 2.5-3.5 for patients wiht mechanical heart valves.[id number] 04:42:00 Test Item Value Reference Range Interpretation [...] = 413) RAD, CHEST, 1 VIEW, NON [id number] 08:52:00Reason for exam:- >IntubationShould this be performed at the bedside?->YesFINAL REPORT Comparison: 03/16/2019 TECHNIQUE: Single view of the chest FINDINGS:Interval removal of endotracheal tube and nasogastric tube. Remaining support lines and tubes are stable. No other significant change. Small left pleural effusion with adjacent airspace disease noted. No pneumothorax. Right upper lobe/apical medial pleural parenchymal opacity again noted. Signed: Jaxon Randolpheport Verified Date/Time: 03/17/2019 08:52:37 Reading Location: [facility] Radiology Reading Room [id number] 03:56:00 Test Item Value Reference Range Interpretation Comments PHOSPHORUS (BEAKER) (test code = 1.9 mg/dL 2.3-4.7 L 604) Human Resource Statistician ID - SERGEY [id number] 03:56:00 Test Item Value Reference Range Interpretation Comments MAGNESIUM (BEAKER) (test code = 2.7 mg/dL 1.6-2.6 H 627) Human Resource Statistician ID - SERGEY WBASIC METABOLIC [id number] 03:56:00 Test Item Value Reference Range Interpretation [...] S NOT APPLICABLE FOR DIALYSIS PATIEN TS. Human Resource Statistician ID - SERGEY WPROTHROMBIN [id number] 03:47:00 Test Item Value Reference Range Interpretation [...] is 2.5-3.5 for patients wiht mechanical heart valves.[id number] 03:47:00 Test Item Value Reference Range Interpretation [...] = 413) RAD, CHEST, 1 VIEW, NON [id number] 04:12:00Reason for exam:- >IntubationShould this be performed at the bedside?->YesFINAL REPORT [...] Brendan Springer MDReport Verified Date/Time: 03/16/2019 04:12:50 Electronicallysigned by: BRENDAN SPRINGER MD on 03/16/2019 04:12 AMBASIC METABOLIC [id number] 03:44:00 Test Item Value Reference Range Interpretation [...] S NOT APPLICABLE FOR DIALYSIS PATIEN TS. Human Resource Statistician ID - JAN [id number] 03:43:00 Test Item Value Reference Range Interpretation Comments MAGNESIUM (BEAKER) 2.5 mg/dL 1.6-2.6 Specimen slightly (test code = 627) hemolyzed Human Resource Statistician ID - JAN [id number] 03:43:00 Test Item Value Reference Range Interpretation Comments PHOSPHORUS (BEAKER) 3.3 mg/dL 2.3-4.7 Specimen slightly (test code = 604) hemolyzed Human Resource Statistician ID - JAN MCBC (HEMOGRAM ONLY)2019-03-16 03:35:00 Test Item Value Reference [...] WBC 0-0 (BEAKER) (test code = 413) [id number] 03:34:00 Test Item Value Reference Range Interpretation Comments PARTIAL THROMBOPLASTIN TIME 35.6 seconds 22.5-36.0 (BEAKER) (test code = 760) PROTHROMBIN [id number] 03:33:00 Test Item Value Reference Range Interpretation [...] is 2.5-3.5 for patients wiht mechanical heart valves.BLOOD GAS, [id number] 03:29:00 Test Item Value Reference Range Interpretation [...] with morning labs while patient is intubated.CBC W/PLT COUNT & AUTO [id number] 01:27:00 Test Item Value Reference Range Interpretation [...] 0-1 PERCENT (BEAKER) (test code = 2801) [id number] 18:10:00 Test Item Value Reference Range Interpretation Comments PARTIAL THROMBOPLASTIN TIME 32.7 seconds 22.5-36.0 (BEAKER) (test code = 760) PROTHROMBIN [id number] 18:09:00 Test Item Value Reference Range Interpretation [...] is 2.5-3.5 for patients wiht mechanical heart valves.CBC W/PLT COUNT & AUTO [id number] 17:53:00 Test Item Value Reference Range Interpretation [...] = 2801) RAD, CHEST, 1 VIEW, NON [id number] 15:51:00Post-intubationReason for exam:- >Post opShould this be performed at the bedside?->YesFINAL REPORT RAD, CHEST, 1 VIEW, NON DEPT INDICATION: Post op COMPARISON: Lin hansen 2018 FINDINGS: Portable frontal view of the chest. IMPRESSION: Support Lines: ET tube tube is 3 cm superior to the hi. Right IJ catheter tip overlies the SVC. Bilateral chest tubes. Lungs andpleura: Mild central pulmonary venous congestion No pneumothorax.Heart and mediastinum: Stable contours. .Additional findings: None. Signed: London Wadeeport Verified Date/Time: 03/15/2019 15:51:14 Reading Location: [facility] Radiology Reading Room C METABOLIC [id number] 15:10:00 Test Item Value Reference Range Interpretation [...] S NOT APPLICABLE FOR DIALYSIS PATIEN TS. Human Resource Statistician ID - NTPPROTHROMBIN [id number] 15:10:00 Test Item Value Reference Range Interpretation [...] is 2.5-3.5 for patients wiht mechanical heart valves.[id number] 15:06:00 Test Item Value Reference Range Interpretation Comments PARTIAL THROMBOPLASTIN TIME 33.0 seconds 22.5-36.0 (BEAKER) (test code = 760) CBC W/PLT COUNT & AUTO [id number] 15:03:00 Test Item Value Reference Range Interpretation [...] 0-1 PERCENT (BEAKER) (test code = 2801) BLOOD GAS, [id number] 15:00:00 Test Item Value Reference Range Interpretation [...] (test code = 1819) 60.0 % GLUCOSE-STAT [id number] 15:00:00 Test Item Value Reference Range Interpretation Comments GLUCOSE RANDOM (BEAKER) (test code 123 mg/dL 70-110 H = 652) HGB/HCT (H&H) - STAT [id number] 15:00:00 Test Item Value Reference Range Interpretation Comments HEMOGLOBIN (BEAKER) (test code = 8.7 g/dL 13.0-16.8 L 410) HEMATOCRIT (BEAKER) (test code = 26.0 % 40.0-50.0 L 411) SODIUM NA-STAT [id number] 14:59:00 Test Item Value Reference Range Interpretation Comments SODIUM (BEAKER) (test code = 381) 142 meq/L 135-148 POTASSIUM-STAT [id number] 14:59:00 Test Item Value Reference Range Interpretation Comments POTASSIUM (BEAKER) (test code = 4.2 meq/L 3.6-5.5 379) [id number] 13:34:00 Test Item Value Reference Range Interpretation Comments ACTIVATED CLOTTING TIME 109 sec Refe rence Range: 74-137 (BEAKER) (test code = second s, 441) Baseline/TESTED AT [place] [address] [id number] 13:34:00 Test Item Value Reference Range Interpretation Comments ACTIVATED CLOTTING TIME 708 sec Refe rence Range: 74-137 (BEAKER) (test code = second s, 441) Baseline/TESTED AT [place] [address] 0 [id number] 13:34:00 Test Item Value Reference Range Interpretation Comments ACTIVATED CLOTTING TIME 901 sec Refe rence Range: 74-137 (BEAKER) (test code = second s, 441) Baseline/TESTED AT [place] [address] 0 [id number] 13:34:00 Test Item Value Reference Range Interpretation Comments ACTIVATED CLOTTING TIME 824 sec Refe rence Range: 74-137 (BEAKER) (test code = second s, 441) Baseline/TESTED AT [place] [address] 0 [id number] 13:34:00 Test Item Value Reference Range Interpretation Comments ACTIVATED CLOTTING TIME 466 sec Refe rence Range: 74-137 (BEAKER) (test code = second s, 441) Baseline/TESTED AT [place] [address] 0 [id number] 13:34:00 Test Item Value Reference Range Interpretation Comments ACTIVATED CLOTTING TIME 466 sec Refe rence Range: 74-137 (BEAKER) (test code = second s, 441) Baseline/TESTED AT [place] [id number] [facility] [place] [address] CALCIUM, [id number] 13:04:00 Test Item Value Reference Range Interpretation Comments CALCIUM IONIZED (BEAKER) (test 1.14 mmol/L 1.12-1.27 code = 698) PH, BLOOD (BEAKER) (test code = 7.32 1810) BLOOD GAS, [id number] 13:04:00 Test Item Value Reference Range Interpretation [...] (test code = 1819) 100.0 % GLUCOSE-STAT [id number] 13:04:00 Test Item Value Reference Range Interpretation Comments GLUCOSE RANDOM (BEAKER) (test code 133 mg/dL 70-110 H = 652) HGB/HCT (H&H) - STAT [id number] 13:04:00 Test Item Value Reference Range Interpretation Comments HEMOGLOBIN (BEAKER) (test code = 9.6 g/dL 13.0-16.8 L 410) HEMATOCRIT (BEAKER) (test code = 28.0 % 40.0-50.0 L 411) SODIUM NA-STAT [id number] 13:03:00 Test Item Value Reference Range Interpretation Comments SODIUM (BEAKER) (test code = 381) 140 meq/L 135-148 POTASSIUM-STAT [id number] 13:03:00 Test Item Value Reference Range Interpretation Comments POTASSIUM (BEAKER) (test code = 5.1 meq/L 3.6-5.5 379) PLATELET AGGREGATION: FUNCTION [id number] 12:54:00 Test Item Value Reference Range Interpretation Comments [id number] Cynthia Alvaro, (BEAKER) (test code = (electronic 6673) signature) PLATELET COUNT AGG 106 K/CU MM 150-450 L (BEAKER) (test code = 9776) PLATELET RICH 186 k/cu mm 200-300 L PLASMA(BEAKER) (test code = 2134) PLATELET FUNCTION SCREEN Normal aggregation INTERPRETATION (BEAKER) results with ADP. No (test code = 4655) evidence of platelet dysfunction or P2Y12 inhibitor effect. Platelet Function Screen results may be falsely low with platelet counts<75,000/cu mm.Human Resource Statistician ID- [id number] ID - [id number] ID - [id number] POTASSIUM-STAT [id number] 12:28:00 Test Item Value Reference Range Interpretation Comments POTASSIUM (BEAKER) (test code = 6.3 meq/L 3.6-5.5 HH 379) HGB/HCT (H&H) - STAT [id number] 12:26:00 Test Item Value Reference Range Interpretation Comments HEMOGLOBIN (BEAKER) (test code = 10.7 g/dL 13.0-16.8 L 410) HEMATOCRIT (BEAKER) (test code = 31.0 % 40.0-50.0 L 411) GLUCOSE-STAT [id number] 12:26:00 Test Item Value Reference Range Interpretation Comments GLUCOSE RANDOM (BEAKER) (test code 145 mg/dL 70-110 H = 652) BLOOD GAS, [id number] 12:26:00 Test Item Value Reference Range Interpretation [...] code = 1819) 70.0 % SODIUM NA-STAT [id number] 12:25:00 Test Item Value Reference Range Interpretation Comments SODIUM (BEAKER) (test code = 381) 136 meq/L 135-148 GLUCOSE-STAT [id number] 12:04:00 Test Item Value Reference Range Interpretation Comments GLUCOSE RANDOM (BEAKER) (test code 159 mg/dL 70-110 H = 652) HGB/HCT (H&H) - STAT [id number] 12:04:00 Test Item Value Reference Range Interpretation Comments HEMOGLOBIN (BEAKER) (test code = 10.5 g/dL 13.0-16.8 L 410) HEMATOCRIT (BEAKER) (test code = 31.0 % 40.0-50.0 L 411) POTASSIUM-STAT [id number] 12:04:00 Test Item Value Reference Range Interpretation Comments POTASSIUM (BEAKER) (test code = 6.6 meq/L 3.6-5.5 HH 379) BLOOD GAS, [id number] 12:02:00 Test Item Value Reference Range Interpretation [...] code = 1819) 70.0 % SODIUM NA-STAT [id number] 12:01:00 Test Item Value Reference Range Interpretation Comments SODIUM (BEAKER) (test code = 381) 135 meq/L 135-148 BLOOD GAS, [id number] 11:19:00 Test Item Value Reference Range Interpretation [...] code = 1819) 60.0 % SODIUM NA-STAT [id number] 11:19:00 Test Item Value Reference Range Interpretation Comments SODIUM (BEAKER) (test code = 381) 133 meq/L 135-148 L GLUCOSE-STAT [id number] 11:19:00 Test Item Value Reference Range Interpretation Comments GLUCOSE RANDOM (BEAKER) (test code 136 mg/dL 70-110 H = 652) HGB/HCT (H&H) - STAT [id number] 11:19:00 Test Item Value Reference Range Interpretation Comments HEMOGLOBIN (BEAKER) (test code = 10.3 g/dL 13.0-16.8 L 410) HEMATOCRIT (BEAKER) (test code = 30.0 % 40.0-50.0 L 411) POTASSIUM-STAT [id number] 11:18:00 Test Item Value Reference Range Interpretation Comments POTASSIUM (BEAKER) (test code = 5.4 meq/L 3.6-5.5 379) BLOOD GAS, [id number] 09:30:00 Test Item Value Reference Range Interpretation [...] (test code = 1819) 100.0 % CALCIUM, [id number] 09:30:00 Test Item Value Reference Range Interpretation Comments CALCIUM IONIZED (BEAKER) (test 1.11 mmol/L 1.12-1.27 L code = 698) PH, BLOOD (BEAKER) (test code = 7.38 1810) GLUCOSE-STAT [id number] 09:30:00 Test Item Value Reference Range Interpretation Comments GLUCOSE RANDOM (BEAKER) (test code 152 mg/dL 70-110 H = 652) HGB/HCT (H&H) - STAT [id number] 09:30:00 Test Item Value Reference Range Interpretation Comments HEMOGLOBIN (BEAKER) (test code = 11.8 g/dL 13.0-16.8 L 410) HEMATOCRIT (BEAKER) (test code = 35.0 % 40.0-50.0 L 411) SODIUM NA-STAT [id number] 09:29:00 Test Item Value Reference Range Interpretation Comments SODIUM (BEAKER) (test code = 381) 138 meq/L 135-148 POTASSIUM-STAT [id number] 09:29:00 Test Item Value Reference Range Interpretation Comments POTASSIUM (BEAKER) (test code = 4.0 meq/L 3.6-5.5 379) BLOOD GAS, [id number] 08:09:00 Test Item Value Reference Range Interpretation [...] (test code = 1819) 91.0 % GLUCOSE-STAT [id number] 08:09:00 Test Item Value Reference Range Interpretation Comments GLUCOSE RANDOM (BEAKER) (test code 113 mg/dL 70-110 H = 652) HGB/HCT (H&H) - STAT [id number] 08:09:00 Test Item Value Reference Range Interpretation Comments HEMOGLOBIN (BEAKER) (test code = 11.6 g/dL 13.0-16.8 L 410) HEMATOCRIT (BEAKER) (test code = 34.0 % 40.0-50.0 L 411) SODIUM NA-STAT [id number] 08:05:00 Test Item Value Reference Range Interpretation Comments SODIUM (BEAKER) (test code = 381) 136 meq/L 135-148 POTASSIUM-STAT [id number] 08:05:00 Test Item Value Reference Range Interpretation Comments POTASSIUM (BEAKER) (test code = 3.8 meq/L 3.6-5.5 379) BASIC METABOLIC [id number] 07:28:00 Test Item Value Reference Range Interpretation [...] 697) EGFR (BEAKER) (test 97 mL/min/1.73 ESTIMA ELISABETH GFR IS code = 1092) sq m NOT ACCURATE CREATININE CLEARANCE IN PREDICTING GLOMERULAR FILTRATION RATE . ESTIMATED GFR I S NOT APPLICABLE FOR DIALYSIS PATIEN TS. Human Resource Statistician ID - JAN MCBC W/PLT COUNT & AUTO [id number] 06:57:00 Test Item Value Reference Range Interpretation [...] 0-1 PERCENT (BEAKER) (test code = 2801) POCT-GLUCOSE [id number] 06:20:00 Test Item Value Reference Range Interpretation Comments POC-GLUCOSE METER 105 mg/dL 70-110 : TESTED A T BSC 6720 (BEAKER) (test code [facility], = 1538) [address]: Human Resource Statistician/Techni trever ID = [id number] for JORD AN, LACRYSTAL HEPATITIS B [id number] 16:09:00 Test Item Value Reference Range Interpretation Comments HEPATITIS B CORE TOTAL ANTIBODY Nonreactive Nonreactive (BEAKER) (test code = 497) HEPATITIS B SURFACE ANTIBODY < mIU/mL <8.0 (BEAKER) (test code = 647) HEPATITIS B SURFACE ANTIGEN (2) Nonreactive Nonreactive (BEAKER) (test code = 2585) Human Resource Statistician ID - KAY MOperator ID - BSOperator ID - BSPLATELET AGGREGATION: FUNCTION [id number] 14:03:00 Test Item Value Reference Range Interpretation Comments [id number] Norberto Gardner MD (BEAKER) (test code = [...] (BEAKER) plasma count is (test code = 721891) <200,000/mm3, an abnormal result may be due to a low platelet count rather than a true platelet dysfunction. Platelet Function Screen results may be falsely low with platelet counts<75,000/cu mm.Human Resource Statistician ID- [id number] C [id number] 13:31:00 Test Item Value Reference Range Interpretation Comments HEPATITIS C ANTIBODY (BEAKER) Nonreactive Nonreactive (test code = 367) Human Resource Statistician ID - KAY MHIV-1 ANTIGEN WITH HIV-1/2 [id number] 13:31:00 Test Item Value Reference Range Interpretation Comments HIV-1 ANTIGEN WITH HIV 1\\T\\2 Nonreactive Nonreactive ANTIBODY (2) (BEAKER) (test code = 2586) Human Resource Statistician ID - KAY MRAD, CHEST, 2 [id number] 12:16:00Reason for exam:->SURGRYFINAL REPORT TECHNIQUE: Frontal and lateral chest radiographs dated 03/08/2019. CLINICAL HISTORY: Surgery COMPARISON STUDY: None FINDINGS: Lungs are clear. No pleural effusion or pneumothorax. Cardiomediastinal silhouette is normal in size. No pulmonary edema. Mild degenerative changes are seen in the spine. IMPRESSION: Clear lungs. Signed: Elsa Nascimento MDReport Verified Date/Time: 03/08/2019 12:16:29 Reading Location: [facility] Reading Room [id number] 12:03:00 Test Item Value Reference Range Interpretation Comments LIPASE (BEAKER) (test code = 749) < U/L 8-78 L Human Resource Statistician ID Irlanda VILLANUEVA [id number] 11:51:00 Test Item Value Reference Range Interpretation Comments AMYLASE (BEAKER) (test code = 349) 55 U/L 25-125 Human Resource Statistician ID Irlanda VILLANUEVA MBASIC METABOLIC [id number] 11:51:00 Test Item Value Reference Range Interpretation [...] S NOT APPLICABLE FOR DIALYSIS PATIEN TS. Human Resource Statistician ID - KAY MHEPATIC FUNCTION [id number] 11:51:00 Test Item Value Reference Range Interpretation [...] (test code = 13 U/L 6-55 347) Human Resource Statistician ID Irlanda VILLANUEVA MLACTATE DEHYDROGENASE (LDH)2019-03-08 11:51:00 Test Item Value Reference Range Interpretation Comments LACTATE DEHYDROGENASE (BEAKER) (test 217 U/L 125-220 code = 635) Human Resource Statistician ID Irlanda VILLANUEVA [id number] 11:37:00 Test Item Value Reference Range Interpretation Comments PARTIAL THROMBOPLASTIN TIME 30.7 seconds 22.5-36.0 (BEAKER) (test code = 760) PROTHROMBIN [id number] 11:36:00 Test Item Value Reference Range Interpretation [...] is 2.5-3.5 for patients wiht mechanical heart valves.RETICULOCYTE [id number] 11:29:00 Test Item Value Reference Range Interpretation Comments RETICULOCYTE COUNT PCT (BEAKER) (test 1.7 % 0.5-1.8 code = 575) Human Resource Statistician ID - [id number] W/PLT COUNT & AUTO [id number] 11:29:00 Test Item Value Reference Range Interpretation [...]
--- NOTE | 2021-12-06 16:08 | RAD REPORT ---
EXAM DESCRIPTION: US - Extrem Venous W Compress Jose - 12/06/2021 4:02 pm CLINICAL HISTORY: sob COMPARISON: No comparisons TECHNIQUE: Real-time sonographic evaluation of the lower extremity deep venous systems was performed using color Doppler, grayscale, and compression. FINDINGS: Bilateral lower extremities. Normal compressibility, flow augmentation, phasic flow and spontaneous flow is identified in both the left and right lower extremity deep venous systems. No intraluminal filling defects seen. IMPRESSION: No DVT in either lower extremity.
[2021-12-06 16:30] LABS: Absolute Lymphocytes (CBC) 0.9 K/uL (0.7-4.9); Hematocrit 33.3 % (39.6-49.0); Lymphocytes % 16.5 % (15.3-44.8); MCV 86.9 fL (80-100); MPV 11.1 fL (7.6-11.3); RBC Red Blood Cell Count 3.83 M/uL (4.33-5.43)
[2021-12-06 16:32] LABS: Protime INR 1.06
[2021-12-06 16:51] LABS: Albumin 3.8 g/dL (3.4-5.0); Bilirubin Direct 0.3 mg/dL (0-0.2); Bilirubin Total 0.8 mg/dL (0.2-1.0); Magnesium 2.2 mg/dL (1.8-2.4); Potassium 3.9 mmol/L (3.5-5.1); Protein, Total 7.7 g/dL (6.4-8.2)
--- NOTE | 2021-12-06 17:01 | RAD REPORT ---
EXAM DESCRIPTION: RAD - Chest Single View - 12/06/2021 4:42 pm CLINICAL HISTORY: SOB COMPARISON: Chest Single View dated 11/18/2021; Chest Pa And Lat (2 Views) dated 11/15/2021; Chest Si ngle View dated 11/11/2019; Chest Single View dated 01/09/2019 FINDINGS: Lines: None. Lungs: No evidence of edema or pneumonia. Pleural: Chronic blunting of the right costophrenic angle. Linear opacities in the right lung may be pleural based. Regardless, they are unchanged . Cardiac: Cardiomegaly. Mediastinum: Within normal limits. Bones: No acute fractures. Sternotomy. Other: None IMPRESSION: No acute cardiopulmonary disease.
--- NOTE | 2021-12-06 18:09 | RAD REPORT ---
EXAM DESCRIPTION: CT - Chest For Pe Angio - 12/06/2021 5:50 pm CLINICAL HISTORY: sob, chest pain COMPARISON: Chest Single View dated 12/06/2021 TECHNIQUE: Dynamically enhanced axial 3 mm thick images of the chest were obtained during administra tion of <100> mL Isovue 370 IV contrast. Coronal and oblique reconstruction images were generated and reviewed. Exam utilizes a protocol for optimal evaluation of pulmonary arterial tree. Maximum intensity projections 3D imaging was utilized All CT scans are performed using dose optimization technique as appropriate and may include automated exposure control or mA/KV adjustment according to patient size. FINDINGS: Chest Wall: No suspicious thyroid nodules or pathologic lymphadenopathy. Lungs: Subpleural thickening in the right lung presumably related to the presence of a chronic pleura l effusion. No acute process identified. Pleura: Chronic appearing pleural fluid along the right upper lobe, right lower lobe, and within the major fissure. Paraseptal emphysema. Small left effusion. Mediastinum/dinh: No pathologic lymphadenopathy. Pulmonary arteries/Aorta: No filling defect identified. No aortic aneurysm. Heart: No significant pericardial effusion. Normal heart size. Multi-vessel coronary artery disease. Upper abdomen: No acute abnormality. Bones: No acute abnormality. Sternotomy. IMPRESSION: Negative for pulmonary embolism. Presumably chronic right pleural effusion with loculate d component and subjacent pleural thickening. No acute process identified.
[2021-12-06] MEDS ORDERED: LEVALBUTEROL 1.25 MG/3 ML NEB ONE (19:42)
--- NOTE | 2021-12-06 20:50 | ER ---
Nurse's Notes [facility] Name: Maycol Corona Age: 71 yrs Sex: Male : 1950 Arrival Date: 12/06/2021 Time: 15:30 Bed 5 Private MD: Diagnosis: Dyspnea, unspecified Presentation: 12/06 15:38 Chief complaint: Patient states: Pt reports chest pain and SOB x3-4 days. PT had heart kb3 cath 2 weeks ago with no findings. Coronavirus screen: Vaccine status: Patient reports receiving the 2nd dose of the covid vaccine. Client denies travel out of the [place] in the last 14 days. Ebola Screen: Patient negative for fever greater than or equal to 101.5 degrees Fahrenheit, and additional compatible Ebola Virus Disease symptoms Patient denies exposure to infectious person. Patient denies travel to an Ebola-affected area in the 21 days before illness onset. Initial Sepsis Screen: Does the patient meet any 2 criteria? No. Patient's initial sepsis screen is negative. Does the patient have a suspected source of infection? No. Patient's initial sepsis screen is negative. Risk Assessment: Do you want to hurt yourself or someone else? Patient reports no desire to harm self or others. Onset of symptoms was December 02, 2021. 15:38 Method Of Arrival: Ambulatory kb3 15:38 Acuity: JOSE 2 kb3 Triage Assessment: 15:41 General: Appears in no apparent distress. uncomfortable, Behavior is calm, cooperative. kb3 Pain: Complains of pain in chest Pain does not radiate. Pain currently is 9 out of 10 on a pain scale. Quality of pain is described as pressure, sharp. Respiratory: Reports shortness of breath cough that is Onset: The symptoms/episode began/occurred gradually, the patient has moderate shortness of breath. Historical: - Allergies: 15:41 No Known Allergies; kb3 - Home Meds: 15:41 acetaminophen-codeine 300-30 mg Oral tab [Active]; Butalbital Compound 50-300-40 mg tab kb3 Oral tab [Active]; famotidine 20 mg Oral tab [Active]; fiorcet [Active]; meloxicam 7.5 mg Oral tab [Active]; [place] 10-325 mg Oral tab 1 tab twice a day [Active]; sertraline 100 mg Oral tab 1 tab once daily [Active]; simvastatin 20 mg Oral tab [Active]; Simvastatin Oral once daily [Active]; tizanidine 4 mg Oral tab [Active]; Zoloft 100 mg Oral tab 1 tab once daily [Active]; - PMHx: 15:41 Back pain; Chronic pain; CVA; herniated disk; High Cholesterol; Myocardial infarction; kb3 neck pain; Pneumothorax; - PSHx: 15:41 bypass-Mar 2019; kb3 - Immunization history:: Adult Immunizations up to date, Client reports receiving the 2nd dose of the Covid vaccine, Last tetanus immunization: up to date. - Social history:: Smoking status: Patient denies any tobacco usage or history of. Screenin:23 Abuse screen: Denies threats or abuse. Nutritional screening: No deficits noted. ap3 Tuberculosis screening: No symptoms or risk factors identified. Fall Risk None identified. Assessment: 16:23 Cardiovascular: Reports chest pain, diffuse chest pain Rhythm is regular. Respiratory: ap3 Airway is patent Respiratory effort is even, unlabored. Respiratory: Reports cough that is. 16:51 Reassessment: Patient and/or family updated on plan of care and expected duration. Pain ap3 level reassessed. Patient is alert, oriented x 3, equal unlabored respirations, skin warm/dry/pink. 18:26 Reassessment: Patient and/or family updated on plan of care and expected duration. Pain ap3 level reassessed. Patient is alert, oriented x 3, equal unlabored respirations, skin warm/dry/pink. patient provided with urinal. 19:45 General: Appears in no apparent distress. Behavior is calm, cooperative, appropriate tw5 for age. Respiratory: Breath sounds are coarse. Vital Signs: 15:38 BP 156 / 78; Pulse 60; Resp 20; Temp 98.3; Pulse Ox 100% ; Weight 77.11 kg; Height 5 kb3 ft. 9 in. (175.26 cm); Pain 9/10; 16:51 BP 149 / 82; Pulse 61; Pulse Ox 94% on R/A; ap3 19:45 BP 162 / 84; Pulse 20; Resp 62; Temp 18; Pulse Ox 100% ; tw5 20:52 BP 168 / 80; Pulse 60; Resp 18 S; Pulse Ox 100% on R/A; as6 15:38 Body Mass Index 25.10 (77.11 kg, 175.26 cm) kb3 ED Course: 15:30 Patient arrived in ED. am2 15:35 John David PA is PHCP. jmm 15:35 Jarrett Bernard DO is Attending Physician. jmm 15:41 Triage completed. kb3 15:41 Arm band placed on right wrist. kb3 15:53 Reena Wong, RN is Primary Nurse. ap3 15:59 Radiology exam delayed due to PT WAS NOT IN HIS ROOM. az 16:04 US Extremity Venous W Compression Jose In Process Unspecified. EDMS 16:23 Initial lab(s) drawn, by me, sent to lab. COVID swab sent to lab. Flu and/or RSV swab ap3 sent to lab. Inserted saline lock: 20 gauge in right antecubital area, using aseptic technique. Blood collected. 16:23 Flu Sent. ap3 16:23 SARS-COV-2 RT PCR (Document "Date of Onset" if Symptomatic) Sent. ap3 16:24 Patient has correct armband on for positive identification. Placed in gown. Bed in low ap3 position. Call light in reach. Side rails up X 1. sole edge inker machine on. Pulse ox on. NIBP on. Door closed. Noise minimized. 16:44 XRAY Chest (1 view) In Process Unspecified. EDMS 17:52 CT Chest For PE Angio In Process Unspecified. EDMS 20:35 Primary Nurse role handed off by Reena Wong, RN mw2 20:52 Roni Stanton, ROSY is Primary Nurse. as6 20:52 No provider procedures requiring assistance completed. IV discontinued, intact, as6 bleeding controlled, No redness/swelling at site. Pressure dressing applied. Administered Medications: 19:45 Drug: Xopenex (levalbuterol) (3) 1.25 mg Route: Inhalation; tw5 20:53 Follow up: Response: No adverse reaction as6 Medication: 16:24 VIS not applicable for this client. ap3 Outcome: 20:49 Discharge ordered by . jmm 20:53 Discharged to home ambulatory. as6 20:53 Condition: stable 20:53 Discharge instructions given to patient, Instructed on discharge instructions, follow up and referral plans. medication usage, Demonstrated understanding of instructions, follow-up care, medications, Prescriptions given X 1. 21:03 Patient left the ED. bb Signatures: Dispatcher [employer] EDMS John David PA PA jmm Ballard, Brenda RN RN bb Reena Alfaro am2 Reena Wong RN RN ap3 Swapna Tolbert 2 Jenise Centeno Tiffany tw5 Roni Stanton RN RN as6 Ramay Greenberg RN RN kb3
--- NOTE | 2021-12-06 20:50 | EDPHYS ---
Physician Documentation [facility] Name: Maycol Corona Age: 71 yrs Sex: Male : 1950 Arrival Date: 12/06/2021 Time: 15:30 Bed 5 Private MD: ED Physician Jarrett Bernard HPI: 12/06 15:41 This 71 yrs old Male presents to ER via Ambulatory with complaints of Shortness Of jmm Breath, Cough, Chest Pain. 15:41 Onset: The symptoms/episode began/occurred gradually. This is a 71-year-old male with [facility] history of CVA, hyperlipidemia that presents emerged part with complaints of shortness of breath which is progressively worsening over the past 2 weeks. Patient states that he has dyspnea on exertion. Also complains of a mild cough, denies body aches or known fever. Patient states when he bends over his face will become very red. Also complains of difficulty with urination.. Historical: - Allergies: 15:41 No Known Allergies; kb3 - Home Meds: 15:41 acetaminophen-codeine 300-30 mg Oral tab [Active]; Butalbital Compound 50-300-40 mg tab kb3 Oral tab [Active]; famotidine 20 mg Oral tab [Active]; fiorcet [Active]; meloxicam 7.5 mg Oral tab [Active]; Mesa 10-325 mg Oral tab 1 tab twice a day [Active]; sertraline 100 mg Oral tab 1 tab once daily [Active]; simvastatin 20 mg Oral tab [Active]; Simvastatin Oral once daily [Active]; tizanidine 4 mg Oral tab [Active]; Zoloft 100 mg Oral tab 1 tab once daily [Active]; - PMHx: 15:41 Back pain; Chronic pain; CVA; herniated disk; High Cholesterol; Myocardial infarction; kb3 neck pain; Pneumothorax; - PSHx: 15:41 bypass-Mar 2019; kb3 - Immunization history:: Adult Immunizations up to date, Client reports receiving the 2nd dose of the Covid vaccine, Last tetanus immunization: up to date. - Social history:: Smoking status: Patient denies any tobacco usage or history of. ROS: 15:41 Constitutional: Negative for fever, chills, and weight loss. jmm 15:41 Cardiovascular: Positive for chest pain, with cough. 15:41 Respiratory: Positive for cough, shortness of breath, on exertion. 15:41 Abdomen/GI: Positive for abdominal distension. 15:41 All other systems are negative. Exam: 15:41 Constitutional: This is a well developed, well nourished patient who is awake, alert, jmm and in no acute distress. Head/Face: atraumatic. Eyes: EOMI, no conjunctival erythema appreciated ENT: Moist Mucus Membranes Neck: Trachea midline, Supple Chest/axilla: Normal chest wall appearance and motion. 15:41 Back: Normal ROM Skin: General appearance color normal MS/ Extremity: Moves all extremities, no obvious deformities appreciated, no edema noted to the lower extremities Neuro: Awake and alert Psych: Behavior is normal, Mood is normal, Patient is cooperative and pleasant 15:41 Cardiovascular: Rate: normal, Rhythm: regular, Pulses: no pulse deficits are appreciated. 15:41 Abdomen/GI: Inspection: abdomen appears normal, Bowel sounds: normal, Palpation: soft, in all quadrants. 17:29 ECG was reviewed by the Attending Physician. [facility] Vital Signs: 15:38 BP 156 / 78; Pulse 60; Resp 20; Temp 98.3; Pulse Ox 100% ; Weight 77.11 kg; Height 5 kb3 ft. 9 in. (175.26 cm); Pain 9/10; 16:51 BP 149 / 82; Pulse 61; Pulse Ox 94% on R/A; ap3 19:45 BP 162 / 84; Pulse 20; Resp 62; Temp 18; Pulse Ox 100% ; tw5 20:52 BP 168 / 80; Pulse 60; Resp 18 S; Pulse Ox 100% on R/A; as6 15:38 Body Mass Index 25.10 (77.11 kg, 175.26 cm) kb3 MDM: 15:57 Patient medically screened. [facility] 20:49 Data reviewed: vital signs, nurses notes. Counseling: I had a detailed discussion with [facility] the patient and/or guardian regarding: the historical points, exam findings, and any diagnostic results supporting the discharge/admit diagnosis, the need for outpatient follow up, to return to the emergency department if symptoms worsen or persist or if there are any questions or concerns that arise at home. 20:49 ED course: Patient was administered Xopenex. He did have a some mild relief of his [facility] shortness of breath symptoms. His oxygen saturations been 100% the entire visit. CT of the chest was negative for any acute process. Troponin was normal. Patient is advised to follow with his primary care provider for further evaluation otherwise given strict return precautions. Patient understood and agrees plan of care.. 12/06 15:41 Order name: Basic Metabolic Panel; Complete Time: 17:07 [facility] 12/06 15:41 Order name: CBC with Diff; Complete Time: 16:32 [facility] 12/06 15:41 Order name: LFT's; Complete Time: 17:07 [facility] 12/06 15:41 Order name: Magnesium; Complete Time: 17: [facility] 12/06 15:41 Order name: NT PRO-BNP; Complete Time: 17:07 [facility] 12/06 15:41 Order name: PT-INR; Complete Time: 16:32 [facility] 12/06 15:41 Order name: Troponin HS; Complete Time: 17:07 [facility] 12/06 15:41 Order name: XRAY Chest (1 view); Complete Time: 17: [facility] 12/06 15:41 Order name: US Extremity Venous W Compression Jose; Complete Time: 16:10 [facility] 12/06 15:57 Order name: SARS-COV-2 RT PCR (Document "Date of Onset" if Symptomatic); Complete Time: [facility] 17:36 12/06 15:57 Order name: Flu; Complete Time: 17:07 [facility] 12/06 17:08 Order name: CT Chest For PE Angio; Complete Time: 18:11 [facility] 12/06 18:13 Order name: Troponin High Sensitivity: draw at 8; Complete Time: 18:46 [facility] 12/06 15:41 Order name: EKG; Complete Time: 15:42 [facility] 12/06 15:41 Order name: Cardiac monitoring; Complete Time: 16:23 [facility] 12/06 15:41 Order name: EKG - Nurse/Tech; Complete Time: 16:23 [facility] 12/06 15:41 Order name: IV Saline Lock; Complete Time: 16:23 [facility] 12/06 15:41 Order name: Labs collected and sent; Complete Time: 16:23 [facility] 12/06 15:41 Order name: O2 Per Protocol; Complete Time: 16:23 [facility] 12/06 15:41 Order name: O2 Sat Monitoring; Complete Time: 16:23 [facility] EC:29 Rate is 61 beats/min. Rhythm is regular. QRS [place] is Normal. GA interval is normal. QRS jmm interval is normal. QT interval is normal. No Q waves. T waves are Normal. No ST changes noted. Reviewed by me. Administered Medications: 19:45 Drug: Xopenex (levalbuterol) (3) 1.25 mg Route: Inhalation; tw5 20:53 Follow up: Response: No adverse reaction as6 Disposition: 18:12 Co-signature as Attending Physician, Jarrett Bernard DO I was immediately available on-site ms3 in the Emergency Department for consultation in the care of the patient. Disposition Summary: 12/06/21 20:49 Discharge Ordered Location: Home [facility] Condition: Stable jm Diagnosis - Dyspnea, unspecified jmm Followup: jm - With: Private Physician - When: 2 - 3 days - Reason: Recheck today's complaints, Continuance of care, Re-evaluation by your physician Discharge Instructions: - Discharge Summary Sheet [facility] - Shortness of Breath, Adult [facility] Forms: - Medication Reconciliation Form [facility] - Thank You Letter [facility] - Antibiotic Education [facility] - Prescription Opioid Use [facility] Prescriptions: - albuterol sulfate 90 mcg/actuation Inhalation HFA aerosol inhaler - inhale 2 puff by INHALATION route every 4-6 hours; 1 Pump; Refills: 0, Product [facility] Selection Permitted - tamsulosin 0.4 mg Oral capsule - take 1 capsule by ORAL route once daily 1/2 hour following the same meal each [facility] day; 20 capsule; Refills: 0, Product Selection Permitted Signatures: Dispatcher [employer] EDJohn Wong PA PA jmm Sims, Marcus, DO DO ms3 Lucrecia Verdugo tw5 Ramya Greenberg, RN RN kb3 Roni Stanton RN as6
[2021-12-06 21:26] VITALS: TEMP 18; O2SAT 100
[2021-12-06 21:27] VITALS: BP 168/80
--- NOTE | 2021-12-09 16:06 | EKG ---
Test Date: 2021-12-06 Test Time: 16:20:46 Social Psychologist: MEASUREMENT RESULTS: Intervals: Rate: 61 CO: 168 QRSD: 88 QT: 472 QTc: 475 [place]: P: 70 CO: 168 QRS: 24 T: 65 INTERPRETIVE STATEMENTS: Normal sinus rhythm Normal ECG Compared to ECG 11/18/2021 19:31:31 Prolonged QT interval no longer present Electronically Signed On 12-09-21 16:00:13 CDT by Moises Pepe
== END 2021-12-06 21:03 | disposition home or self-care (01) ==
LOC: ER 15:20
DX: R06.00 Dyspnea, unspecified (principal); R07.9 Chest pain, unspecified; I25.2 Old myocardial infarction; Z20.822 Contact with and (suspected) exposure to COVID-19
CPT/HCPCS: 93005; 85025; 80048; 36415; 83735; 85610; 80076; 84484 ×2; 83880; 87804 ×2; 71275; 71045; 93970; 99285; U0003; Q9967; J7614

== ENCOUNTER 2023-11-25 17:22 | Observation (INO) | payer OTHER ==
[2023-11-25 17:48] LABS: Absolute Basophils 0.1 K/uL (0-0.5); Absolute Eosinophils 0.2 K/uL (0-0.5); Absolute Lymphocytes (CBC) 1.4 K/uL (0.7-4.9); Absolute Monocytes 0.5 K/uL (0.1-1.3); Absolute Neutrophil 3.9 K/uL (1.8-8.0); Eosinophils % 3.1 % (0-4.4); Hematocrit 36.7 % (39.6-49.0); Hemoglobin 12.4 g/dL (13.6-17.9); MCH 28.5 pg (27.0-35.0); MCHC 33.9 g/dL (32.0-36.0); Monocytes % 8.7 % (3.3-12.3); Neutrophils % 64.2 % (41.7-73.7); Nucleated Red Blood Cells % 0.1 % (0-0); Platelets 105 thou/uL (152-406); RBC Red Blood Cell Count 4.36 M/uL (4.33-5.43); Red Cell Distribution Width 14.9 % (12.1-15.2)
[2023-11-25 17:52] LABS: PT Prothrombin Time 11.2 SECONDS (9.4-12.5)
[2023-11-25 18:07] LABS: Albumin 3.9 g/dL (3.4-5.0); Anion Gap 9.7 mEq/L (5.0-15.0); Bilirubin Direct 0.2 mg/dL (0-0.2); Bilirubin Indirect, Calculated 0.6 mg/dL (0.2-0.8); Bilirubin Total 0.8 mg/dL (0.2-1.0); Globulin 4.1 g/dL (2.3-3.5); Magnesium 1.9 mg/dL (1.6-2.4); Potassium 3.7 mEq/L (3.5-5.1)
[2023-11-25] MEDS ORDERED: ONDANSETRON 4 MG/2 ML VIAL ONE (18:11)
[2023-11-25] MEDS ORDERED: ASPIRIN 81 MG CHEWABLE TABLET ONE (18:12)
[2023-11-25] MEDS ORDERED: MORPHINE 2 MG/ML SYR ONE (18:12)
--- NOTE | 2023-11-25 18:41 | RAD REPORT ---
EXAMINATION: ONE VIEW CHEST XR CLINICAL INDICATION: PAIN TECHNIQUE: Frontal chest projection is submitted. Examination is limited by patient positioning and t echnique. COMPARISON: 12/06/2021 FINDINGS: Small right pleural effusion, similar to prior study and likely chronic. Linear scarring suspected in right lower lobe. The lungs are otherwise clear. The heart is upper limit of normal in size. No displaced fractures identified. Sternotomy wires. IMPRESSION: Stable chest since 12/06/2021 prior study.
--- NOTE | 2023-11-25 18:49 | EDPHYS ---
Physician Documentation [facility] Name: Maycol Corona Age: 73 yrs Sex: Male : 1950 Arrival Date: 11/25/2023 Time: 17:22 Bed 2 Private MD: ED Physician Tone Lee HPI: 11/24 17:46 This 73 yrs old Male presents to ER via Ambulatory with complaints of Chest mary Pain, Shortness Of Breath. 17:46 The patient or guardian reports chest pain that is located primarily in the anterior mary chest wall, bilaterally. Onset: 14 day(s) ago. The pain does not radiate. Associated signs and symptoms: Pertinent positives: lightheadedness, shortness of breath. The chest pain is described as a heaviness, a pressure. Modifying factors: The symptoms are alleviated by nothing. the symptoms are aggravated by exertion. Severity of pain: At its worst the pain was mild in the emergency department the pain is unchanged. The patient has not experienced similar symptoms in the past. Historical: - Allergies: 17:32 No Known Allergies; ph - PMHx: 17:32 Back pain; Chronic pain; CVA; herniated disk; High Cholesterol; Myocardial infarction; ph neck pain; Pneumothorax; - PSHx: 17:32 bypass-Mar 2019; ph - Immunization history:: Adult Immunizations unknown. - Infectious Disease History:: Denies. - Family history:: not pertinent. - Social history:: Smoking status: Patient/guardian denies using tobacco, but has a distant history of tobacco abuse. ROS: 17:46 Constitutional: Negative for fever, chills, and weight loss, Eyes: Negative for injury, mary pain, redness, and discharge, ENT: Negative for injury, pain, and discharge, Neck: Negative for injury, pain, and swelling, Abdomen/GI: Negative for abdominal pain, nausea, vomiting, diarrhea, and constipation, Back: Negative for injury and pain, : Negative for injury, bleeding, discharge, and swelling, MS/Extremity: Negative for injury and deformity, Skin: Negative for injury, rash, and discoloration, Neuro: Negative for headache, weakness, numbness, tingling, and seizure, Psych: Negative for depression, anxiety, suicide ideation, homicidal ideation, and hallucinations, Allergy/Immunology: Negative for hives, rash, and allergies, Endocrine: Negative for neck swelling, polydipsia, polyuria, polyphagia, and marked weight changes, Hematologic/Lymphatic: Negative for swollen nodes, abnormal bleeding, and unusual bruising, 17:46 Cardiovascular: Positive for chest pain, 17:46 Respiratory: Positive for shortness of breath, at rest. Exam: 17:46 Constitutional: This is a well developed, well nourished patient who is awake, alert, mary and in no acute distress. Head/Face: Normocephalic, atraumatic. Eyes: Pupils equal round and reactive to light, extra-ocular motions intact. Lids and lashes normal. Conjunctiva and sclera are non-icteric and not injected. Cornea within normal limits. Periorbital areas with no swelling, redness, or edema. ENT: Nares patent. No nasal discharge, no septal abnormalities noted. Tympanic membranes are normal and external auditory canals are clear. Oropharynx with no redness, swelling, or masses, exudates, or evidence of obstruction, uvula midline. Mucous membranes moist. Neck: Trachea midline, no thyromegaly or masses palpated, and no cervical lymphadenopathy. Supple, full range of motion without nuchal rigidity, or vertebral point tenderness. No Meningismus. Chest/axilla: Normal chest wall appearance and motion. Nontender with no deformity. No lesions are appreciated. Cardiovascular: Regular rate and rhythm with a normal S1 and S2. No gallops, murmurs, or rubs. Normal PMI, no JVD. No pulse deficits. Respiratory: Lungs have equal breath sounds bilaterally, clear to auscultation and percussion. No rales, rhonchi or wheezes noted. No increased work of breathing, no retractions or nasal flaring. Abdomen/GI: Soft, non-tender, with normal bowel sounds. No distension or tympany. No guarding or rebound. No evidence of tenderness throughout. Back: No spinal tenderness. No costovertebral tenderness. Full range of motion. Male : Normal genitalia with no discharge or lesions. Skin: Warm, dry with normal turgor. Normal color with no rashes, no lesions, and no evidence of cellulitis. MS/ Extremity: Pulses equal, no cyanosis. Neurovascular intact. Full, normal range of motion. Neuro: Awake and alert, GCS 15, oriented to person, place, time, and situation. Cranial nerves II-XII grossly intact. Motor strength 5/5 in all extremities. Sensory grossly intact. Cerebellar exam normal. Normal gait. Psych: Awake, alert, with orientation to person, place and time. Behavior, mood, and affect are within normal limits. 17:46 ECG was reviewed by the Attending Physician. Vital Signs: 17:37 BP 187 / 89; Pulse 55; Resp 18; Temp 97.2; Pulse Ox 96% on R/A; Weight 75.3 kg; Height ph 5 ft. 9 in. ; Pain 5/10; 18:32 Pulse 57; Resp 18; Pulse Ox 100% on R/A; ph 18:38 BP 174 / 84; Pulse 54; Resp 16; Pulse Ox 99% on R/A; iw 19:43 BP 198 / 99; Pulse 58; Resp 19; Pulse Ox 100% on R/A; kd3 21:05 BP 184 / 89; Pulse 59; Resp 17; Pulse Ox 99% on R/A; kd3 17:37 Body Mass Index 24.51 (75.30 kg, 175.26 cm) ph 17:37 Pain Scale: Adult ph MDM: 17:29 Medical Screening Exam initiated mary 17:51 Differential diagnosis: abnormal EKG, acute myocardial infarction, acute pericarditis, mary anxiety, congestive heart failure Cholelithiasis costochondritis, esophagitis, gastritis, hiatal hernia, pancreatitis, peptic ulcer disease, pericarditis, pleurisy, pneumonia, pneumothorax, pulmonary embolus, stable angina, thoracic aortic disection, unstable angina. HEART Score: History: Slightly Suspicious (0), ECG: Non specific repolarization disturbance / LBTB / PM (1), Age: > or = 65 years (2), Risk Factors: > or = 3 Risk factors for atherosclerotic disease (2), [Hypercholesterolemia] [Hypertension] [+ Family HX] [Obesity] Troponin: < or = 1 x Normal Limit (0). The patient was given aspirin in the Emergency Department. DILMA Risk Score: 1 - patient's age is greater or equal to 65 years, 1 - Three or more CAD risk factors, 1- Known CAD, 1 - ASA use in past 7 days, TOTAL SCORE = 4. Data reviewed: vital signs, nurses notes, EMS record, lab test result(s), EKG, radiologic studies, CT scan, plain films. Consideration of Admission/Observation Patient was admitted/placed on observation. Escalation of care including admission/observation considered. I considered the following discharge prescriptions or medication management in the emergency department Medications were administered in the Emergency Department. See MAR. Independent interpretation of the following test(s) in the Emergency Department EKG: See my EKG interpretation above. Test considered but Not performed: Ultrasound NO 2 D ECHO. Counseling: I had a detailed discussion with the patient and/or guardian regarding the historical points, exam findings, and any diagnostic results supporting the discharge/admit diagnosis, lab results, radiology results, the need for further work-up and treatment in the hospital. 11/24 17:38 Order name: Basic Metabolic Panel; Complete Time: 18:46 ph 11/24 17:38 Order name: CBC with Diff; Complete Time: 18:46 ph 11/24 17:38 Order name: LFT's; Complete Time: 18:46 ph 11/24 17:38 Order name: Magnesium; Complete Time: 18:46 ph 11/24 17:38 Order name: NT PRO-BNP; Complete Time: 18:46 ph 11/24 17:38 Order name: PT-INR; Complete Time: 18:46 ph 11/24 17:38 Order name: Troponin HS; Complete Time: 18:46 ph 11/24 17:38 Order name: Lipase; Complete Time: 18:46 ph 11/24 19:44 Order name: NT PRO-BNP EDMS 11/24 19:44 Order name: Urinalysis w/ reflexes EDMS 11/24 19:44 Order name: CBC with Automated Diff EDMS 11/24 19:44 Order name: CBC with Automated Diff EDMS 11/24 19:44 Order name: Comprehensive Metabolic Panel EDMS 11/24 19:44 Order name: Comprehensive Metabolic Panel EDMS 11/24 19:44 Order name: Troponin High Sensitivity EDMS 11/24 19:44 Order name: Troponin High Sensitivity EDMS 11/24 19:44 Order name: Troponin High Sensitivity EDMS 11/24 19:44 Order name: Troponin High Sensitivity EDMS 11/25 08:27 Order name: Troponin High Sensitivity EDMS 11/25 08:42 Order name: Manual Differential EDMS 11/24 17:38 Order name: XRAY Chest (1 view); Complete Time: 18:46 ph 11/24 20:19 Order name: CT EDMS 11/24 19:44 Order name: CONS Physician Consult [facility] 11/24 17:38 Order name: Cardiac monitoring; Complete Time: 17:39 ph 11/24 17:38 Order name: EKG - Nurse/Tech; Complete Time: 17:39 ph 11/24 17:38 Order name: IV Saline Lock; Complete Time: 17:45 ph 11/24 17:38 Order name: Labs collected and sent; Complete Time: 17:45 ph 11/24 17:38 Order name: O2 Per Protocol; Complete Time: 17:39 ph 11/24 17:38 Order name: O2 Sat Monitoring; Complete Time: 17:39 ph EC:46 Rate is 57 beats/min. Rhythm is regular. QRS [place] is Normal. [place] interval is normal. QRS mary interval is normal. QT interval is normal. No Q waves. T waves are Normal. No ST changes noted. Clinical impression: Sinus bradycardia and No evidence of ischemia. Interpreted by me. Reviewed by me. Administered Medications: 18:26 Drug: morphine IVP or IV 2 mg IVP once over 4 mins Route: IVP; Infused Over: 4 mins; iw Site: right antecubital; 21:06 Follow up: Response: No adverse reaction; Pain is decreased kd3 18:26 Drug: Ondansetron IVP 4 mg IVP once; over 2 minutes Route: IVP; Site: right antecubital;iw 21:06 Follow up: Response: No adverse reaction kd3 18:26 Drug: Aspirin PO Chewable Tablet 324 mg PO once; 81 mg tablets x 4 Route: PO; iw 21:06 Follow up: Response: No adverse reaction kd3 19:38 Drug: Famotidine IVP 20 mg IVP once; dilute with 10 mL 0.9% NaCl; give over 2 minutes kd3 Route: IVP; Site: right antecubital; 21:06 Follow up: Response: No adverse reaction kd3 19:38 Drug: Enoxaparin Sub-Q 1 mg/kg Sub-Q once Route: Sub-Q; Site: abdomen; kd3 21:06 Follow up: Response: No adverse reaction kd3 11/25 01:03 Not Given (pt declined for now, admitted): morphineor iv 2 mg IVP once over 4 mins bm8 Disposition Summary: 11/25/23 18:49 Hospitalization Ordered Notes: Hospitalization Status: Observation mary Provider: Collin Mcdonnell cha Condition: Fair mary Problem: new mary Symptoms: have improved mary Bed/Room Type: Standard mary Location: Telemetry/MedSurg (observation)(11/26/23 11:40) bc6 Room Assignment: 403(11/26/23 11:40) 6 Diagnosis - Chest pain, unspecified mary - Essential (primary) hypertension mary - Dyspnea mary Forms: - Medication Reconciliation Form mary - SBAR form mary - Leadership Thank You Letter mary Signatures: Dispatcher [employer] EDMS Tone Lee MD MD cha Williams, Irene, RN RN iw Daily Colon RN RN ph Able, Clara, RN RN lg3 Crista Chavis, RN RN kd3 Janie Corey 6 Niraj Prince RN bm8 Corrections: (The following items were deleted from the chart) 11/24 17:39 17:39 BASIC METABOLIC PANEL+C.LAB.BRZ ordered. EDMS EDMS 17:39 17:39 CBC+H.LAB.BRZ ordered. EDMS EDMS 17:39 17:39 HEPATIC FUNCTION+C.LAB.BRZ ordered. EDMS EDMS 17:39 17:39 MAGNESIUM+C.LAB.BRZ ordered. EDMS EDMS 17:39 17:39 PROBNP+C.LAB.BRZ ordered. EDMS EDMS 17:39 17:39 PROTIME (+INR)+COAG.LAB.BRZ ordered. EDMS EDMS 17:39 17:39 Troponin High Sensitivity+C.LAB.BRZ ordered. EDMS EDMS 17:39 17:39 LIPASE+C.LAB.BRZ ordered. EDMS EDMS 17:39 17:39 Chest Single View+RAD.RAD.BRZ ordered. EDMS EDMS 17:46 17:46 Chest For PE Angio+CT.RAD.BRZ ordered. EDMS EDMS 21:22 18:49 Telemetry/MedSurg (observation) mary lg3 21:22 18:49 mary lg3 11/25 11:40 11/24 21:22 BR ER HOLD lg3 bc6 11/25 11:40 11/24 21:22 ERHOLD- lg3 bc6
--- NOTE | 2023-11-25 18:49 | ER ---
Nurse's Notes [facility] Name: Maycol Corona Age: 73 yrs Sex: Male : 1950 Arrival Date: 11/25/2023 Time: 17:22 Bed 2 Private MD: Diagnosis: Chest pain, unspecified;Essential (primary) hypertension;Dyspnea Presentation: 11/24 17:33 Ebola Screen: No symptoms or risks identified at this time. Initial Sepsis Screen: Does ph the patient meet any 2 criteria? No. Patient's initial sepsis screen is negative. Does the patient have a suspected source of infection? No. Patient's initial sepsis screen is negative. Risk Assessment: Do you want to hurt yourself or someone else? Patient reports no desire to harm self or others. Onset of symptoms was November 25, 2023. 17:33 Method Of Arrival: Ambulatory ph 17:37 Chief complaint: Patient states: Chest pain and SOB x 1 week. Coronavirus screen: ph Vaccine status: Patient reports receiving the 2nd dose of the covid vaccine. 17:37 Acuity: JOSE 2 ph Historical: - Allergies: 17:32 No Known Allergies; ph - PMHx: 17:32 Back pain; Chronic pain; CVA; herniated disk; High Cholesterol; Myocardial infarction; ph neck pain; Pneumothorax; - PSHx: 17:32 bypass-Mar 2019; ph - Immunization history:: Adult Immunizations unknown. - Infectious Disease History:: Denies. - Family history:: not pertinent. - Social history:: Smoking status: Patient/guardian denies using tobacco, but has a distant history of tobacco abuse. Screenin:33 [facility] ED Fall Risk Assessment (Adult) History of falling in the last 3 months, ph including since admission No falls in past 3 months (0 pts) Confusion or Disorientation No (0 pts) Intoxicated or Sedated No (0 pts) Impaired Gait No (0 pts) Mobility Assist Device Used No (0 pt) Altered Elimination No (0 pt) Score/Fall Risk Level 0 - 2 = Low Risk Oriented to surroundings, Maintained a safe environment, Hourly rounding (assess needs \T\ fall precautionary measures) done. Abuse screen: Denies threats or abuse. Denies injuries from another. Nutritional screening: No deficits noted. Tuberculosis screening: No symptoms or risk factors identified. Assessment: 17:42 General: Appears in no apparent distress. Behavior is calm, cooperative. Pain: iw Complains of pain in chest Pain does not radiate. Quality of pain is described as discomfort Pain began 1 week. Neuro: Level of Consciousness is awake, alert, obeys commands, Oriented to person, place, time, situation, Moves all extremities. Full function. Cardiovascular: Reports chest pain, shortness of breath, Patient's skin is warm and dry. Rhythm is sinus bradycardia. Respiratory: Reports shortness of breath at rest on exertion labored breathing Respiratory effort is even, unlabored, Respiratory pattern is regular, agonal the patient has moderate shortness of breath. GI: Abdomen is non-distended. Derm: Skin is intact. Musculoskeletal: Range of motion: intact in all extremities. 18:37 Reassessment: Patient appears in no apparent distress at this time. Patient and/or iw family updated on plan of care and expected duration. Pain level reassessed. Patient is alert, oriented x 3, equal unlabored respirations, skin warm/dry/pink. 19:39 General: Patient is seen resting comfortably in the stretcher, respirations are even kd3 and unlabored, skin is warm and dry. Patient was assisted to the restroom. Patient was independently ambulatory to the restroom and back, urine sample collected. Patient returned to the room and spoke with the hospitalist provider. Patient expressed desire to not have chest compressions performed in the case of resuscitation measures with the provider present. Patient states that when he moves around he feels pressure in his head and neck. Patient was offered pain medications. Patient states that he does not feel his pain is bad enough for pain medications at this time. Patient is noted to be hypertensive at this time. . 21:04 General: Patient administered a [place] for headache. . kd3 Vital Signs: 17:37 BP 187 / 89; Pulse 55; Resp 18; Temp 97.2; Pulse Ox 96% on R/A; Weight 75.3 kg; Height ph 5 ft. 9 in. ; Pain 5/10; 18:32 Pulse 57; Resp 18; Pulse Ox 100% on R/A; ph 18:38 BP 174 / 84; Pulse 54; Resp 16; Pulse Ox 99% on R/A; iw 19:43 BP 198 / 99; Pulse 58; Resp 19; Pulse Ox 100% on R/A; kd3 21:05 BP 184 / 89; Pulse 59; Resp 17; Pulse Ox 99% on R/A; kd3 17:37 Body Mass Index 24.51 (75.30 kg, 175.26 cm) ph 17:37 Pain Scale: Adult ph Vitals: 18:32 Cardiac Rhythm Assessment Sinus johnny. ph ED Course: 17:25 Patient arrived in ED. ra3 17:29 Tone Lee MD is Attending Physician. mary 17:32 Arm band placed on Patient placed in an exam room, on a stretcher, on campus monitor, ph on pulse oximetry. 17:32 EKG done, by ED staff, reviewed by Tone Lee MD. ph 17:34 Patient has correct armband on for positive identification. Bed in low position. Call ph light in reach. Side rails up X 1. Client placed on continuous cardiac and pulse oximetry monitoring. NIBP monitoring applied. campus monitor on. Door closed. Noise minimized. Warm blanket given. Pillow given. 17:37 Triage completed. ph 17:42 Shelby Rai, RN is Primary Nurse. iw 18:38 XRAY Chest (1 view) In Process Unspecified. EDMS 18:48 Collin Mcdonnell MD is Hospitalizing Provider. mary 19:43 No provider procedures requiring assistance completed. Patient maintains SpO2 kd3 saturation greater than 95% on room air. 11/25 10:00 Patient admitted, IV remains in place. cm10 11:45 1145 CM met with patient at the bedside in the ED exam room. Patient identified by name ane and . Demographic sheet confirmed. Patient states he lives alone in a ground floor apartment and his son Roscoe lives in the next door apartment. Patient states that prior to admission, he performs ADLs independently. DME in the home includes a nebulizer and BP cuff. No MPOA in place. PCP is Dr. Chitra Spaulding. states he thought he was being discharged home from the ER. 1149 CM reached out to provider , via telephone, to clarify order. [address] Manrique and he clarified plan is to await improvement in BP and then he would be able to discharge home. Patient states he will be able to transport himself home as he has his truck at the hospital. CM team will continue to follow and coordinate care during this hospital stay. 11:58 Provided Education on: Need for admit. cm10 Administered Medications: 11/24 18:26 Drug: morphine IVP or IV 2 mg IVP once over 4 mins Route: IVP; Infused Over: 4 mins; iw Site: right antecubital; 21:06 Follow up: Response: No adverse reaction; Pain is decreased kd3 18:26 Drug: Ondansetron IVP 4 mg IVP once; over 2 minutes Route: IVP; Site: right antecubital;iw 21:06 Follow up: Response: No adverse reaction kd3 18:26 Drug: Aspirin PO Chewable Tablet 324 mg PO once; 81 mg tablets x 4 Route: PO; iw 21:06 Follow up: Response: No adverse reaction kd3 19:38 Drug: Famotidine IVP 20 mg IVP once; dilute with 10 mL 0.9% NaCl; give over 2 minutes kd3 Route: IVP; Site: right antecubital; 21:06 Follow up: Response: No adverse reaction kd3 19:38 Drug: Enoxaparin Sub-Q 1 mg/kg Sub-Q once Route: Sub-Q; Site: abdomen; kd3 21:06 Follow up: Response: No adverse reaction 3 11/25 01:03 Not Given (pt declined for now, admitted): morphineor iv 2 mg IVP once over 4 mins [id number] Medication: 11/24 17:33 VIS not applicable for this client. ph Outcome: 18:49 Decision to Hospitalize by Provider. [facility] 11/25 10:00 Admitted to ER Hold. Please see [facility] for further documentation. cm10 Condition: good Instructed on the need for admit, 12:52 Patient left the ED. cm10 Signatures: Dispatcher [employer] EDMS Tone Lee MD MD cha Williams, Irene, RN ROSY iw Daily Colon ph D, RN RNoucette, Kyli, RN RN kd3 Martinez, Clarissa, RN RN Araseli Hernandez Andie, RN RN ane McDonald, Brad RN bm8
[2023-11-25] MEDS ORDERED: ENOXAPARIN 80 MG/0.8 ML SQ ONE (19:07)
[2023-11-25] MEDS ORDERED: FAMOTIDINE 20 MG/2 ML VIAL IV ONE (19:07)
[2023-11-25] MEDS ORDERED: ACETAMINOPHEN 325 MG TABLET PO PRN (19:38)
[2023-11-25] MEDS ORDERED: ONDANSETRON 4 MG/2 ML VIAL IV PRN (19:38)
[2023-11-25] MEDS ORDERED: DOXYLAMINE SUCCINATE 25 MG PO PRN (19:45)
--- NOTE | 2023-11-25 19:45 | P.HP ---
Certification for Inpatient Patient admitted to: Observation With expected LOS: <2 Midnights Practitioner: I am a practitioner with admitting privileges, knowledge of patient current condition, hospital course, and medical plan of care. Services: Services provided to patient in accordance with Admission requirements found in Title 42 Section 412.3 of the Code of Federal Regulations Patient History Date of Service: 11/25/23 Reason for admission: Chest Pain History of Present Illness: 73 yrs old Male with past medical history of hypertension, hyperlipidemia, CAD status post ME, status post CABG, history of pneumothorax, chronic pain came to ER with chest pain and shortness of breath. Pain is located in her anterior chest for with no radiation associated with shortness of breath and lightheadedness. Chest pain is heaviness pressure-like feeling alleviated with nothing and worse with movements. Denies any fever or chills. No nausea vomiting or diarrhea . Patient was assessed in the ER and was admitted for further management of unstable angina Allergies No Known Allergies Allergy (Unverified 11/15/21 10:28) Home medications list reviewed: Yes Home Medications: Aspirin [Aspirin EC 81 MG] 81 mg PO DAILY 11/19/21 Atorvastatin Calcium [Lipitor] 1 tab PO DAILY 11/19/21 Carvedilol [Coreg] 1 tab PO BID 11/19/21 Doxylamine Succinate [Nighttime Sleep-Aid] 1 tab PO BEDTIME PRN 11/19/21 Hydrocodone Bit/Acetaminophen [Hydrocodon-Acetaminophn 10-325] 1 tab PO Q6H PRN 11/19/21 Ondansetron [Zofran (Odt)*] 1 tab PO Q8H PRN 11/19/21 Sertraline HCl 1 tab PO DAILY 11/19/21 - Past Medical/Surgical History Past Medical History: Reviewed- Non-Contributory -: CAD with previous CABG -: HTN -: HLD -: Chronic pain Past Surgical History: Reviewed- Non-Contributory -: CABG-three vessel 2000 Psychosocial/ Personal History: 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 - Social History Smoking Status: Never smoker Alcohol use: Yes CD- Drugs: No Caffeine use: Yes Review of Systems 10-point ROS is otherwise unremarkable Physical Examination - Vital Signs Temperature: 97.2 F Blood Pressure: 146/72 Pulse: 78 Respirations: 18 Pulse Ox (%): 94 - Physical Exam General: Alert, In no apparent distress, Oriented x3 HEENT: Atraumatic, Normocephalic Neck: Supple, No Thyromegaly Respiratory: Clear to auscultation bilaterally, Normal air movement Cardiovascular: Normal pulses, Regular rate/rhythm, Normal S1 S2 Capillary refill: <2 Seconds Gastrointestinal: Soft and benign, W/out hepatosplenomegaly Musculoskeletal: No clubbing, No swelling Integumentary: No rashes, No breakdown Neurological: Normal speech, Normal strength at 5/5 x4 extr Lymphatics: No axilla or inguinal lymphadenopathy - Studies Laboratory Data (last 24 hrs) 11/25/23 11/25/23 11/25/23 17:40 17:40 17:40 WBC 6.10 Hgb 12.4 L Hct 36.7 L Plt Count 105 L PT 11.2 INR 1.00 Sodium 138 Potassium 3.7 BUN 16 Creatinine 1.13 Glucose 121 H Magnesium 1.9 Total Bilirubin 0.8 AST 13 L ALT 21 Alkaline Phosphatase 96 Lipase 16 Assessment and Plan - Plan Unstable Angina Will trend cardiac enzymes Will monitor telemetry Started on aspirin and statin EKG did not show any acute changes Will get an echocardiogram Cardiology consult Hypertension Antihypertensives titrated Continue home medications and titrate as needed Hyperlipidemia Continue statin CAD status post CABG Continue home medications and titrate as needed Monitor closely under telemetry GI/DVT prophylaxis Advanced directive full code Discharge Plan: Home Plan to discharge in: 48 Hours - Advance Directives Does patient have a Living Will: No Does patient have a Durable POA for Healthcare: No - Code Status/Comfort Care Code Status: Full Code Time Spent Managing Pts Care (In Minutes): 48
[2023-11-25] MEDS: NA CHLORIDE 0.9% 1,000 ML IV SCH (20:00)
--- NOTE | 2023-11-25 20:19 | RAD REPORT ---
EXAMINATION: CTA CHEST PE CLINICAL INDICATION: Chest pain;Dyspnea TECHNIQUE: This examination was performed according to an angiographic protocol with 3D post-processi ng. This involves 3D reconstructions, MIPs, volume rendered images and/or shaded surface rendering. One or more of the following dose reduction techniques were used: Automated exposure control, adjustm ent of the mA and/or kV according to patient size, and/or iterative reconstruction. Unless otherwise specified, incidental findings do not require dedicated imaging follow-up. COMPARISON: 12/06/2021 FINDINGS: PULMONARY ARTERIES: Normal caliber. No evidence of pulmonary emboli to the subsegmental level. THORACIC AORTA: Normal caliber and configuration. LUNGS: Mild atelectasis in the right layering base posteriorly. PLEURA: Trace right pleural fluid. MEDIASTINUM AND LYMPH NODES: No mediastinal mass or fluid collection. Normal size mediastinal, hilar, and axillary lymph nodes. OSSEOUS STRUCTURES AND CHEST WALL: Intact. UPPER ABDOMEN: 9 mm benign cyst superior right lobe of the liver. IMPRESSION: No evidence of pulmonary emboli to the subsegmental level. Trace right pleural fluid with atelectasis in the posterior right lung base.
[2023-11-25] MEDS ORDERED: HYDROCODONE/APAP 10/325 TAB ONE (20:52)
[2023-11-25] MEDS: HYDROCODONE/APAP 10/325 TAB PO PRN (20:57)
[2023-11-25] MEDS: carvediloL 6.25 MG TAB PO SCH (21:00)
[2023-11-25] MEDS ORDERED: MORPHINE 2 MG/ML SYR IV PRN (21:02)
[2023-11-25 21:55] VITALS: BMI 24.5
[2023-11-25] MEDS ORDERED: NA CHLORIDE 0.9% 1,000 ML ONE (22:36)
[2023-11-25] MEDS: AMLODIPINE 5 MG TAB PO SCH (23:00)
[2023-11-25] MEDS ORDERED: AMLODIPINE 5 MG TAB ONE (23:22)
[2023-11-26 06:41] LABS: Absolute Eosinophils 0.2 K/uL (0-0.5); Absolute Monocytes 0.6 K/uL (0.1-1.3); Absolute Neutrophil 3.3 K/uL (1.8-8.0); Eosinophils % 4.4 % (0-4.4); Hematocrit 33.2 % (39.6-49.0); Hemoglobin 11.3 g/dL (13.6-17.9); Lymphocytes % 19.9 % (15.3-44.8); MCH 28.7 pg (27.0-35.0); MCHC 33.9 g/dL (32.0-36.0); MCV 84.5 fL (80-100); MPV 10.7 fL (7.6-11.3); Neutrophils % 63.7 % (41.7-73.7); Nucleated Red Blood Cells % 0.1 % (0-0); Platelets 95 thou/uL (152-406); RBC Red Blood Cell Count 3.93 M/uL (4.33-5.43); Red Cell Distribution Width 14.8 % (12.1-15.2)
[2023-11-26 07:36] LABS: Albumin 3.3 g/dL (3.4-5.0); Anion Gap 7.5 mEq/L (5.0-15.0); Bilirubin Total 0.5 mg/dL (0.2-1.0); Globulin 3.4 g/dL (2.3-3.5); Potassium 3.5 mEq/L (3.5-5.1); Protein, Total 6.7 g/dL (6.4-8.2)
[2023-11-26] MEDS ORDERED: carvediloL 12.5 MG TAB PO SCH (08:00)
[2023-11-26] MEDS: carvediloL 12.5 MG TAB PO SCH (08:00)
[2023-11-26] MEDS ORDERED: ENOXAPARIN 40 MG/0.4 ML SQ ONE (08:28)
[2023-11-26] MEDS ORDERED: ASPIRIN EC 81 MG TAB PO ONE (08:28)
[2023-11-26] MEDS ORDERED: POTASSIUM CL SA 10 MEQ TAB PO ONE (08:28)
[2023-11-26] MEDS ORDERED: ATORVASTATIN 40 MG TAB ONE (08:28)
[2023-11-26] MEDS ORDERED: HYDROCODONE/APAP 10/325 TAB ONE (08:28)
[2023-11-26 08:41] LABS: Band Neutrophils 1 % (0-1); Differential Total Cells Count 100; Eosinophils 8 % (0-3); Lymphocytes 21 % (15-42); Monocytes 9 % (0-10); Segmented Neutrophils 61 % (40-80)
[2023-11-26 08:42] LABS: Blood Morphology Comment NOT SEEN (NOT SEEN); Platelet Estimate DECR; Toxic Granulation 1+
[2023-11-26] MEDS: ASPIRIN EC 81 MG TAB PO SCH (09:00)
[2023-11-26] MEDS: ENOXAPARIN 40 MG/0.4 ML SQ SCH (09:00)
[2023-11-26] MEDS: ATORVASTATIN 40 MG TAB PO SCH (09:00)
[2023-11-26] MEDS: SERTRALINE HCL 100 MG TAB PO SCH (09:00)
--- NOTE | 2023-11-26 11:10 | P.CNS ---
Date of Consult: 11/26/23 Chief Complaint: Chest Pain History of Present Illness: Patient with PMH of CAD s/p CABG x3, HTN, presented with chest pain, back pain that has been going on for weeks, denies any other cardiac symptoms, no Palpitations, no syncope. Allergies No Known Allergies Allergy (Unverified 11/15/21 10:28) Home medications list reviewed: Yes Home Medications: Aspirin [Aspirin EC 81 MG] 81 mg PO DAILY 11/19/21 Atorvastatin Calcium [Lipitor] 1 tab PO DAILY 11/19/21 Carvedilol [Coreg] 1 tab PO BID 11/19/21 Doxylamine Succinate [Nighttime Sleep-Aid] 1 tab PO BEDTIME PRN 11/19/21 Hydrocodone Bit/Acetaminophen [Hydrocodon-Acetaminophn 10-325] 1 tab PO Q6H PRN 11/19/21 Ondansetron [Zofran (Odt)*] 1 tab PO Q8H PRN 11/19/21 Sertraline HCl 1 tab PO DAILY 11/19/21 - Past Medical/Surgical History -: CAD with previous CABG -: HTN -: HLD -: Chronic pain -: CABG-three vessel 1999 Psychosocial/ Personal History: 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 - Social History Alcohol use: Yes CD- Drugs: No Caffeine use: Yes Review of Systems 10-point ROS is otherwise unremarkable Physical Examination Temp Pulse Resp BP Pulse Ox 97.2 F 55 18 186/93 H 98 11/26/23 08:00 11/26/23 08:00 11/26/23 08:56 11/26/23 08:00 11/26/23 08:56 General: Alert, In no apparent distress HEENT: Atraumatic, PERRLA, Mucous membr. moist/pink, EOMI, Sclerae nonicteric Neck: Supple, 2+ carotid pulse no bruit, No LAD, Without JVD or thyroid abnormality Respiratory: Clear to auscultation bilaterally, Normal air movement Cardiovascular: Regular rate/rhythm, Normal S1 S2 Gastrointestinal: Normal bowel sounds, No tenderness Musculoskeletal: No tenderness Integumentary: No rashes Neurological: Normal gait, Normal speech, Normal tone, Normal affect Lymphatics: No axilla or inguinal lymphadenopathy Laboratory Data (last 24 hrs) 11/25/23 11/25/23 11/25/23 17:40 17:40 17:40 WBC 6.10 Hgb 12.4 L Hct 36.7 L Plt Count 105 L PT 11.2 INR 1.00 Sodium 138 Potassium 3.7 BUN 16 Creatinine 1.13 Glucose 121 H Magnesium 1.9 Total Bilirubin 0.8 AST 13 L ALT 21 Alkaline Phosphatase 96 Lipase 16 - Problems (1) CAD (coronary artery disease) of artery bypass graft Current Visit: Yes Status: Acute Plan: Patient with PMH of CAD s/p CABG x3, most recent coronary angiogram in 2021 with patent CURRAN-LAD and SVG-D and occluded SVG OM and occluded OM, report occasional chest pain, cardiac enzymes are negative x3. - patient is scheduled for outpatient stress test and he want to keep that appointment. - continue ASA 81 mg daily - continue lipitor 40 mg daily - control BP better (2) HTN (hypertension) Current Visit: Yes Status: Acute Plan: continue coreg 12.5 mg po BID continue Norvasc 5 mg daily add losartan 50 mg daily (3) HLD (hyperlipidemia) Current Visit: Yes Status: Acute Plan: continue lipitor 80 mg daily
--- NOTE | 2023-11-26 11:51 | EKG ---
Test Date: 2023-11-25 Test Time: 17:33:20 [employer] Appeals Reviewer: LML MEASUREMENT RESULTS: Intervals: Rate: 57 MI: 182 QRSD: 90 QT: 474 QTc: 461 [place]: P: 73 MI: 182 QRS: 8 T: 80 INTERPRETIVE STATEMENTS: Sinus bradycardia Otherwise normal ECG Compared to ECG 12/06/2021 16:20:46 Sinus rhythm no longer present Electronically Signed On 11-26-23 11:50:10 CDT by Demond Gonzalez
--- NOTE | 2023-11-26 12:37 | ECHO ---
HEIGHT: 5 ft 9 in WEIGHT: 166 lb 0.482 oz DATE OF STUDY: 11/26/[address]: Fahad Mcdonnell DO 2-DIMENSIONAL: YES M.MODE: YES DOPPLER: YES COLOR FLOW: YES TDS: PORTABLE: YES DEFINITY: BUBBLE STUDY: DIAGNOSIS: CONGESTIVE HEART FAILURE CARDIAC HISTORY: CATHERIZATION: YES SURGERY: YES PROSTHETIC VALVE: NO PACEMAKER: NO MEASUREMENTS (cm) DIASTOLIC (NORMALS) SYSTOLIC (NORMALS) IVSd 1.1 (0.6-1.2) LA Diam 2.8 (1.9-4.0) LVEF 60-65% LVIDd 4.3 (3.5-5.7) LVIDs 3.1 (2.0-3.5) %FS 27% LVPWd 1.1 (0.6-1.2) Ao Diam 3.2 (2.0-3.7) 2 DIMENSIONAL ASSESSMENT: RIGHT ATRIUM: NORMAL LEFT ATRIUM: NORMAL RIGHT VENTRICLE: NORMAL LEFT VENTRICLE: NORMAL TRICUSPID VALVE: TRACE TRICUSPID REGURGITATION MITRAL VALVE: MILD MITRAL REGURGITATION PULMONIC VALVE: NORMAL AORTIC VALVE: NORMAL PERICARDIAL EFFUSION: NONE AORTIC ROOT: NORMAL LEFT VENTRICULAR WALL MOTION: NORMAL DOPPLER/COLOR FLOW: GRADE II DIASTIOLIC DYSFUNCTION COMMENTS: 1. NORMAL LEFT VENTRICULAR SYSTOLIC FUNCTION, EJECTION FRACTION 60-65%, NORMAL WALL MOTION 2. GRADE II DIASTOLIC DYSFUNCTION 3. MILD MITRAL REGURGITATION 4. NORMAL FILLING PRESSURE TECHNOLOGIST: CHINO STAUFFER
[2023-11-26 13:01] VITALS: O2SAT 99
--- NOTE | 2023-11-26 13:22 | P.DS ---
Admission Date: 11/25/23 Discharge Date: 11/26/23 Disposition: ROUTINE DISCHARGE Discharge Condition: FAIR Reason for Admission: Chest Pain - Problems (1) Chest pain Current Visit: Yes Status: Acute (2) Coronary artery disease Current Visit: Yes Status: Acute (3) HLD (hyperlipidemia) Current Visit: Yes Status: Acute (4) HTN (hypertension) Current Visit: Yes Status: Acute Brief History of Present Illness: 73 yrs old Male with past medical history of hypertension, hyperlipidemia, CAD status post NH, status post CABG, history of pneumothorax, chronic pain came to ER with chest pain and shortness of breath. Patient was assessed in the ER, initial troponin was negative, EKG shows sinus bradycardia, no ischemic changes, chest x-ray showed no acute disease. Patient was hospitalized for ACS rule out. Hospital Course: Patient placed on observation on the medical floor, troponin trended negative. Patient was asymptomatic during the hospital stay. Patient was evaluated by cardiology who recommended inpatient stress test. Patient declined inpatient stress test and stated he has already been scheduled for outpatient stress test which he wants to stick to. Patient blood pressure was significantly elevated during the initial period of his hospital stay. Patient is on Coreg which was continued, amlodipine. His blood pressure improved to normal. Patient plans to follow-up with cardiology after his stress test. Vital Signs/Physical Exam: Temp Pulse Resp BP Pulse Ox 97.2 F 52 14 138/80 99 11/26/23 08:00 11/26/23 12:00 11/26/23 12:00 11/26/23 12:00 11/26/23 12:00 Laboratory Data at Discharge: WBC 5.20 thou/uL (4.3-10.9) 11/26/23 06:31 Hgb 11.3 g/dL (13.6-17.9) L D 11/26/23 06:31 Hct 33.2 % (39.6-49.0) L 11/26/23 06:31 Plt Count 95 thou/uL (152-406) L 11/26/23 06:31 PT 11.2 SECONDS (9.4-12.5) 11/25/23 17:40 INR 1.00 11/25/23 17:40 Sodium 140 mEq/L (136-145) 11/26/23 06:58 Potassium 3.5 mEq/L (3.5-5.1) 11/26/23 06:58 BUN 19 mg/dL (7-18) H 11/26/23 06:58 Creatinine 0.89 mg/dL (0.70-1.30) 11/26/23 06:58 Glucose 97 mg/dL (74-106) 11/26/23 06:58 Magnesium 1.9 mg/dL (1.6-2.4) 11/25/23 17:40 Total Bilirubin 0.5 mg/dL (0.2-1.0) 11/26/23 06:58 AST 11 U/L (15-37) L 11/26/23 06:58 ALT 19 U/L (16-61) 11/26/23 06:58 Alkaline Phosphatase 69 U/L (45-117) D 11/26/23 06:58 Lipase 16 U/L (13-75) 11/25/23 17:40 Home Medications: Aspirin [Aspirin EC 81 MG] 81 mg PO DAILY 11/19/21 Atorvastatin Calcium [Lipitor] 1 tab PO DAILY 11/19/21 Carvedilol [Coreg] 1 tab PO BID 11/19/21 Doxylamine Succinate [Nighttime Sleep-Aid] 1 tab PO BEDTIME PRN 11/19/21 Hydrocodone Bit/Acetaminophen [Hydrocodon-Acetaminophn 10-325] 1 tab PO Q6H PRN 11/19/21 Ondansetron [Zofran (Odt)*] 1 tab PO Q8H PRN 11/19/21 Sertraline HCl 1 tab PO DAILY 11/19/21 Amlodipine [Norvasc*] 5 mg PO BEDTIME #30 tab 11/26/23 New Medications: Amlodipine [Norvasc*] 5 mg PO BEDTIME #30 tab Diet: AHA Activity: Ad chidi Followup: Demond Gonzalez MD [ACTIVE - CAN ADMIT] - 1 Week OMKAR CHOI [Primary Care Provider] - 1-2 Weeks
[2023-11-26 16:48] VITALS: BP 165/77; TEMP 97.9
== END 2023-11-26 16:45 | disposition home or self-care (01) ==
LOC: ER 17:22 → ERHOLD 19:38 → 4TH 11-26 12:48
PROVIDERS: ADMIT Family Medicine; ATTEND Internal Medicine
DX: R07.9 Chest pain, unspecified (principal); I25.10 Atherosclerotic heart disease of native coronary artery without angina pectoris; I10 Essential (primary) hypertension; E78.5 Hyperlipidemia, unspecified; G89.29 Other chronic pain; I25.2 Old myocardial infarction; Z95.1 Presence of aortocoronary bypass graft
CPT/HCPCS: 36415; 71045; 71275; 80048; 80053; 80076; 83690; 83735; 83880; 84484; 85025; 85610; 93005; 93306; 94760; G0378; J1650; J2270; J2405; J7030; Q9967